=== PATIENT | male | born 1940 | race Caucasian/White ===

== ENCOUNTER 2019-10-06 10:34 | Emergency (ER) | payer MEDICARE, OTHER ==
--- NOTE | 2019-10-06 13:10 | EDM.PDOC ---
ED HPI GENERAL MEDICAL PROBLEM - General Chief Complaint: General Stated Complaint: right sided flank pain wrapping around Time Seen by Provider: 10/06/19 13:04 Source of Information: Reports: Patient, RN, RN Notes Reviewed History Limitations: Reports: No Limitations - History of Present Illness INITIAL COMMENTS - FREE TEXT/NARRATIVE: 79 year-old male with left flank pain variable over about 3 weeks. Smelly urine with mild dysuria on occasion. Now more discomfort and called EMS. Narcotic en route and pain-free now. Malaise. No fever nor chills. Mild abdominal distension and chronic constipation. S/P cynthia. Known CRF. No complaints c/w acute anemia. 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: Other (see below) Other Treatments DEVELOPER ARCHITECT: fentayl right flank wrapping around towards front Pain Score (Numeric/FACES): 7 - Related Data Allergies Allergy/AdvReac Type Severity Reaction Status Date / Time No Known Allergies Allergy Verified 10/06/19 10:45 Home Meds: Home Meds Carbidopa/Levodopa [Carbidopa-Levodopa 25-100] 25 - 100 mg PO BID 08/10/13 [ History] Metoprolol Succinate 25 mg PO BID 08/10/13 [History] [place]-3 Fatty Acids [[place]-3] 2,000 mg PO DAILY 08/10/13 [History] Omeprazole 40 mg PO DAILY 08/10/13 [History] Vitamin B Complex [B Complex] 1 each PO DAILY 08/10/13 [History] lisinopriL [Prinivil] 40 mg PO DAILY 08/10/13 [History] metFORMIN [Glucophage] 500 mg PO BID 08/10/13 [History] Cholecalciferol (Vitamin D3) [Vitamin D3] 1,000 unit PO DAILY 01/22/16 [History] Cinnamon Bark [Cinnamon] 500 mg PO DAILY 01/22/16 [History] Cyanocobalamin (Vitamin B-12) [Vitamin B12] 2,500 mcg PO DAILY 01/22/16 [History ] Flaxseed Oil 1,000 mg PO DAILY 01/22/16 [History] Ibuprofen [Advil] 200 mg PO Q6HR PRN 01/22/16 [History] Magnesium 250 mg PO DAILY 01/22/16 [History] Saw [place] 1,200 mg PO TID 01/22/16 [History] Selenium 200 mcg PO DAILY 01/22/16 [History] Zinc 50 mg PO DAILY 01/22/16 [History] atorvaSTATin [Lipitor] 10 mg PO BEDTIME 01/22/16 [History] Ciprofloxacin HCl [Cipro] 500 mg PO BID 6 Days #10 tablet 10/06/19 [Rx] Past Medical History HEENT History: Reports: Hard of Hearing Cardiovascular History: Reports: High Cholesterol, Hypertension Other Cardiovascular History: Carotid Artery stenosis, acute coronary occlusion without myocardial infarction, coronary atherosclerosis of [place] artery, SVT premature beats, Respiratory History: Reports: COPD Gastrointestinal History: Reports: Diverticulosis, Pancreatitis, Other (See Below) Other Gastrointestinal History: Pepcid Ulcer, umbilical hernia, esophageal reflux Genitourinary History: Reports: BPH Other Genitourinary History: impotence, atrophy of testis, stage 3 CKD Musculoskeletal History: Reports: Arthritis Neurological History: Reports: Parkinson's Psychiatric History: Reports: Anxiety, Depression Endocrine/Metabolic History: Reports: Diabetes, Type II, Obesity/BMI 30+, Osteopenia Hematologic History: Reports: Anemia - Past Surgical History Cardiovascular Surgical History: Reports: Carotid Endarterectomy Musculoskeletal Surgical History: Reports: Amputation, Arthroscopic Knee, Other (See Below) Social & Family History - Family History Cardiac: Reports: [place] Respiratory: Reports: COPD GI: Reports: Cholelithiasis, PUD, Other (See Below) Other GI Family History: GI Disease : Reports: Cystic Kidney Disease, Nephritis Musculoskeletal: Reports: Gout Neurological: Reports: Other (See Below) Other Neurological Family History: Organic brain syndrome Psychiatric: Reports: Depression, Suicide Attempt Endocrine/Metabolic: Reports: Diabetes, type II Oncologic: Reports: Breast, Lung - Living Situation & Occupation Living situation: Reports: , Alone Occupation: Retired ED ROS GENERAL - Review of Systems Review Of Systems: See Below Constitutional: Reports: Malaise. Denies: Fever, Chills, Weakness, Diaphoresis , Decreased Appetite HEENT: Reports: No Symptoms Respiratory: Denies: Shortness of Breath, Pleuritic Chest Pain, Cough, Sputum, Hemoptysis Cardiovascular: Denies: Chest Pain, Edema, Lightheadedness GI/Abdominal: Reports: Constipation, Distension, Flatus. Denies: Black Stool, Bloody Stool, Diarrhea, Nausea, Vomiting : Reports: Dysuria, Flank Pain, Frequency, Incontinence, Pain, Urgency. Denies: Hematuria, Urinary Retention Musculoskeletal: Reports: No Symptoms Skin: Denies: Rash Hematologic/Lymphatic: Denies: Anemia ED EXAM, GENERAL - Physical Exam Exam: See Below Exam Limited By: No Limitations General Appearance: Alert, No Apparent Distress Throat/Mouth: Normal Inspection, Normal Lips, Other (Hydrated.) Head: Atraumatic, Normocephalic Neck: Normal Inspection, Supple, Non-Tender. No: Lymphadenopathy (L), Lymphadenopathy (R) Respiratory/Chest: No Respiratory Distress, Lungs Clear, Normal Breath Sounds, No Accessory Muscle Use, Chest Non-Tender Cardiovascular: Normal Peripheral Pulses, Regular Rate, Rhythm, No Edema, No Gallop, No JVD, No Murmur GI/Abdominal: Normal Bowel Sounds, Soft, Non-Tender, No Organomegaly (Male) Exam: No Hernia, Normal Inspection Back Exam: CVA Tenderness (R). No: CVA Tenderness (L) Extremities: Normal Inspection, Normal Capillary Refill. No: Pedal Edema Neurological: Alert, Oriented, No Motor/Sensory Deficits Psychiatric: Normal Affect Skin Exam: Warm, Dry, Intact, Normal Color, No Rash Course - Vital Signs Last Recorded V/S: Last Vital Signs Temp 97.8 F 10/06/19 10:35 Pulse 97 10/06/19 10:35 Resp 16 10/06/19 10:35 BP 183/96 H 10/06/19 10:35 Pulse Ox 96 10/06/19 10:35 - Orders/Labs/Meds Orders: Active Orders 24 hr Category Date Time Status Abdomen 2V AP Flat Upright [CR] Stat Exams 10/06/19 11:05 Taken CULTURE URINE [RM] Stat Lab 10/06/19 12:48 Received Labs: Laboratory Tests 10/06/19 10/06/19 10/06/19 Range/Units 11:22 11:22 12:48 WBC 5.8 (4.0-10.2) K/uL RBC 2.44 L (4.33-5.41) M/uL Hgb 7.7 L D (13.1-16.8) g/dL Hct 24.2 L* (39.0-49.0) % MCV 99.2 H D (84.0-98.0) fL MCH 31.6 (28.2-33.3) pg MCHC 31.8 (31.7-36.0) g/dL RDW 14.9 H (11.2-14.1) % Plt Count 257 D (150-350) K/uL Neut % (Auto) 65.5 (45.0-80.0) % Lymph % (Auto) 17.4 (10.0-50.0) % [place] % (Auto) 14.9 H (2.0-14.0) % Eos % (Auto) 1.7 (0.0-5.0) % Baso % (Auto) 0.5 (0.0-2.0) % Neut # (Auto) 3.77 (1.40-7.00) K/uL Lymph # (Auto) 1.00 (0.50-3.50) K/uL [place] # (Auto) 0.86 (0.00-1.00) K/uL Eos # (Auto) 0.10 (0.00-0.50) K/uL Baso # (Auto) 0.03 (0.00-0.20) K/uL Sodium 133 L (136-145) mmol/L Potassium 4.9 (3.5-5.1) mmol/L Chloride 100 (98-107) mmol/L Carbon Dioxide 26.3 (21.0-32.0) mmol/L BUN 53 H (7-18) mg/dL Creatinine 2.13 H (0.51-1.17) mg/dL Est Cr Clr Drug Dosing 28.97 mL/min Estimated GFR (MDRD) 30 mL/min Glucose 229 H (74-106) mg/dL Calcium 9.7 (8.5-10.1) mg/dL Total Bilirubin 0.3 (0.2-1.0) mg/dL AST 13 L (15-37) U/L ALT 12 (12-78) U/L Alkaline Phosphatase 71 (46-116) IU/L C-Reactive Protein 1.2 H (<=0.9) mg/dL Total Protein 12.4 H (6.4-8.2) g/dL Albumin 2.2 L (3.4-5.0) g/dL Specimen Type . Urine Color Yellow Urine Appearance Clear Urine pH 6.0 (5.0-9.0) Ur Specific [place] 1.025 (1.005-1.030) Urine Protein >=300 H (NEGATIVE) mg/dL Urine Glucose (UA) Negative (NEGATIVE) mg/dL Urine Ketones Negative (NEGATIVE) mg/dL Urine Occult Blood Trace-intact H (NEGATIVE) Urine Nitrite Negative (NEGATIVE) Urine Bilirubin Negative (NEGATIVE) Urine Urobilinogen 0.2 (0.2-1.0) E.U./dL Ur Leukocyte Esterase Small H (NEGATIVE) Urine RBC 0-5 /HPF Urine WBC 30-40 H /HPF Ur Epithelial Cells Moderate H /LPF Urine Bacteria Moderate H (NONE TO FEW) /HPF Urinalysis Comment Departure - Departure Time of Disposition: 13:38 Disposition: Home, Self-Care 01 Condition: Good Clinical Impression: UTI (urinary tract infection) - Discharge Information *PRESCRIPTION DRUG MONITORING PROGRAM REVIEWED*: Not Applicable *COPY OF PRESCRIPTION DRUG MONITORING REPORT IN PATIENT [place]: Not Applicable Prescriptions: Ciprofloxacin HCl [Cipro] 500 mg PO BID 6 Days #10 tablet Referrals: Sourav Davis PA [Primary Care Provider] - Forms: ED Department Discharge Sepsis Event Note (ED) - Evaluation Sepsis Screening Result: No Definite Risk - Focused Exam Vital Signs: Vital Signs Temp Pulse Resp BP Pulse Ox 10/06/19 10:35 97.8 F 97 16 183/96 H 96 - Problem List & Annotations (1) UTI (urinary tract infection) SNOMED Code(s): 61488220 Code(s): N39.0 - URINARY TRACT INFECTION, SITE NOT SPECIFIED Status: Acute - My Orders Last 24 Hours: My Active Orders 10/06/19 11:05 Abdomen 2V AP Flat Upright [CR] Stat 10/06/19 12:48 CULTURE URINE [RM] Stat - Assessment/Plan Last 24 Hours: My Active Orders 10/06/19 11:05 Abdomen 2V AP Flat Upright [CR] Stat 10/06/19 12:48 CULTURE URINE [RM] Stat
[2019-10-06 15:25] VITALS: BP 164/77; PULSE 86
== END 2019-10-06 14:30 | disposition home or self-care (01) ==
LOC: LL.ED 10:34
DX: N39.0 Urinary tract infection, site not specified (principal); E78.00 Pure hypercholesterolemia, unspecified; J44.9 Chronic obstructive pulmonary disease, unspecified; E66.9 Obesity, unspecified; F41.9 Anxiety disorder, unspecified; F32.9 Major depressive disorder, single episode, unspecified; I12.9 Hypertensive chronic kidney disease with stage 1 through stage 4 chronic kidney disease, or unspecified chronic kidney disease; E11.22 Type 2 diabetes mellitus with diabetic chronic kidney disease; N18.3 Chronic kidney disease, stage 3 (moderate); Z79.84 Long term (current) use of oral hypoglycemic drugs; Z79.899 Other long term (current) drug therapy
CPT/HCPCS: 36415; 74019; 80053; 81001; 85025; 86140; 87086; 99284

== ENCOUNTER 2020-02-01 17:03 | Emergency (ER) | payer MEDICARE, OTHER ==
[2020-02-01] MEDS ORDERED: Sodium Chloride 0.9% 10 ML Syringe FLUSH PRN (17:22)
--- NOTE | 2020-02-01 17:28 | EDM.PDOC ---
ED HPI GENERAL MEDICAL PROBLEM - General Chief Complaint: General Stated Complaint: FALL, DIZZINESS Time Seen by Provider: 02/01/20 17:21 Source of Information: Reports: Patient History Limitations: Reports: Other (hard of hearing/vague with history) - History of Present Illness INITIAL COMMENTS - FREE TEXT/NARRATIVE: Patient comes to ER via EMS after having dizzy spell at [employer]. Has had dizzy spells before. Gets fuzzy eye vision when this happens. Says drinking a diet coke and burping usually fixes things. Cannot say how often he gets the spells or if there are specific triggers. They usually do not last long. Does not follow up with his own MD often and no workup has been performed. Has right sided neck pain that travels past clavicle when these things happen. No sweating/nausea/emesis or other accompanying symptoms. No SOB. 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 - Related Data Allergies Allergy/AdvReac Type Severity Reaction Status Date / Time No Known Allergies Allergy Verified 10/06/19 10:45 Home Meds: Home Meds [place]-3 Fatty Acids [[place]-3] 2,000 mg PO DAILY 08/10/13 [History] Vitamin B Complex [B Complex] 1 each PO DAILY 08/10/13 [History] Cholecalciferol (Vitamin D3) [Vitamin D3] 1,000 unit PO DAILY 01/22/16 [History] Cinnamon Bark [Cinnamon] 500 mg PO DAILY 01/22/16 [History] Cyanocobalamin (Vitamin B-12) [Vitamin B12] 2,500 mcg PO DAILY 01/22/16 [History] Flaxseed Oil 1,000 mg PO DAILY 01/22/16 [History] Ibuprofen [Advil] 200 mg PO Q6HR PRN 01/22/16 [History] Magnesium 250 mg PO DAILY 01/22/16 [History] Saw [place] 1,200 mg PO TID 01/22/16 [History] Selenium 200 mcg PO DAILY 01/22/16 [History] Zinc 50 mg PO DAILY 01/22/16 [History] Aspirin/Acetaminophen/Caffeine [Excedrin Extra Strength Caplet] 1 each PO QID PRN 10/06/19 [History] Ciprofloxacin HCl [Cipro] 500 mg PO BID 6 Days #10 tablet 10/06/19 [Rx] guaiFENesin/Phenylephrine HCl [Mucus Relief PE Tablet] 1 each PO Q6HR PRN 10/06/19 [History] Past Medical History HEENT History: Reports: Hard of Hearing Cardiovascular History: Reports: High Cholesterol, Hypertension Other Cardiovascular History: Carotid Artery stenosis, acute coronary occlusion without myocardial infarction, coronary atherosclerosis of [place] artery, SVT premature beats, Respiratory History: Reports: COPD Gastrointestinal History: Reports: Diverticulosis, Pancreatitis, Other (See Below) Other Gastrointestinal History: Pepcid Ulcer, umbilical hernia, esophageal reflux Genitourinary History: Reports: BPH Other Genitourinary History: impotence, atrophy of testis, stage 3 CKD Musculoskeletal History: Reports: Arthritis Neurological History: Reports: Parkinson's Psychiatric History: Reports: Anxiety, Depression Endocrine/Metabolic History: Reports: Diabetes, Type II, Obesity/BMI 30+, Osteopenia Hematologic History: Reports: Anemia - Past Surgical History Cardiovascular Surgical History: Reports: Carotid Endarterectomy Musculoskeletal Surgical History: Reports: Amputation, Arthroscopic Knee, Other (See Below) Social & Family History - Family History Cardiac: Reports: [place] Respiratory: Reports: COPD GI: Reports: Cholelithiasis, PUD, Other (See Below) Other GI Family History: GI Disease : Reports: Cystic Kidney Disease, Nephritis Musculoskeletal: Reports: Gout Neurological: Reports: Other (See Below) Other Neurological Family History: Organic brain syndrome Psychiatric: Reports: Depression, Suicide Attempt Endocrine/Metabolic: Reports: Diabetes, type II Oncologic: Reports: Breast, Lung - Caffeine Use Caffeine Use: Reports: Coffee, Soda - Living Situation & Occupation Living situation: Reports: , Alone Occupation: Retired ED ROS GENERAL - Review of Systems Review Of Systems: See Below Constitutional: Reports: No Symptoms HEENT: Reports: No Symptoms Respiratory: Reports: No Symptoms. Denies: Shortness of Breath, Pleuritic Chest Pain Cardiovascular: Reports: Lightheadedness, Other (right upper chest/lateral neck discomfort with dizzy spell). Denies: Dyspnea on Exertion, Edema, Orthopnea, Palpitations, Syncope GI/Abdominal: Reports: No Symptoms. Denies: Abdominal Pain, Hematemesis, Hematochezia, Nausea, Vomiting : Reports: Other (can have difficulty urinating at times/long standing issue) Musculoskeletal: Reports: Other (no acute changes from baseline) Skin: Reports: No Symptoms Neurological: Reports: Dizziness, Difficulty Walking (when dizzy). Denies: Confusion, Headache, Numbness, Seizure, Syncope, Tingling, Trouble Speaking, Change in Speech Psychiatric: Reports: No Symptoms Hematologic/Lymphatic: Reports: No Symptoms ED EXAM, GENERAL - Physical Exam Exam: See Below Exam Limited By: Other (very hard of hearing) General Appearance: Alert, WD/WN, No Apparent Distress Eye Exam: Bilateral Eye: EOMI, PERRL Ears: Hearing Loss. No: Normal External Exam, Normal Canal Nose: No: Nasal Deformity, Nasal Swelling, Nasal Drainage Throat/Mouth: Normal Lips, Normal Voice, No Airway Compromise Head: Atraumatic, Normocephalic Neck: Supple, Non-Tender, Full Range of Motion Respiratory/Chest: No Respiratory Distress, Lungs Clear, Normal Breath Sounds, No Accessory Muscle Use, Chest Non-Tender Cardiovascular: Normal Peripheral Pulses, Regular Rate, Rhythm, No Murmur GI/Abdominal: Normal Bowel Sounds, Soft, Non-Tender, No Distention (Male) Exam: Deferred Back Exam: No: CVA Tenderness (L), CVA Tenderness (R), Muscle Spasm Extremities: Non-Tender Neurological: Alert, Oriented, Other (equal tone/strength bilaterally) Psychiatric: Normal Affect, Normal Mood Skin Exam: Warm, Dry, Intact, Pallor, Other (excoriations lower legs. ) EKG INTERPRETATION EKG Date: 02/01/20 Time: 17:32 Rhythm: Other (appears to have A-flutter waves V2) Rate (Beats/Min): 104 Ralph: Normal P-Wave: Absent QRS: Other (bifascicular block) ST-T: Other (difficult to assess given bifascicular block/no obvious acute ischemic changes) QT: Normal Comparison: Change From Previous EKG (NSR noted 2013) Course - Vital Signs Last Recorded V/S: Last Vital Signs Temp 36.9 C 02/01/20 20:20 Pulse 103 H 02/01/20 20:20 Resp 27 H 02/01/20 20:20 BP 139/77 02/01/20 20:20 Pulse Ox 100 02/01/20 17:09 - Orders/Labs/Meds Orders: Active Orders 24 hr Category Date Time Status Communication Order [RC] ROUTINE Care 02/01/20 17:56 Active EKG Documentation Completion [RC] ASDIRECTED Care 02/01/20 17:24 Active Chest 1V Frontal [CR] Stat Exams 02/01/20 17:51 Taken Head wo Cont [CT] Stat Exams 02/01/20 17:21 Taken PACKED CELLS [RED BLOOD CELLS LP] [BBK] Stat Lab 02/01/20 17:25 Results TYPE AND SCREEN [BBK] Stat Lab 02/01/20 17:25 Results UA W/MICROSCOPIC [URIN] Stat Lab 02/01/20 17:22 Ordered Sodium Chloride 0.9% [Normal Saline] 250 ml Med 02/01/20 20:00 Active IV ASDIRECTED Sodium Chloride 0.9% [Saline Flush] Med 02/01/20 17:22 Active 10 ml FLUSH ASDIRECTED PRN Saline Lock Insert [OM.PC] Routine Oth 02/01/20 17:22 Ordered Transfuse Red Blood Cells [COMM] Routine Oth 02/01/20 17:52 Ordered Medication Orders Sodium Chloride (Normal Saline) 250 mls @ 250 mls/hr IV ASDIRECTED TOSIN Last Admin: 02/01/20 20:13 Dose: 250 mls/hr Documented by: JASE Sodium Chloride (Saline Flush) 10 ml FLUSH ASDIRECTED PRN PRN Reason: Keep Vein Open Labs: Laboratory Tests 02/01/20 02/01/20 02/01/20 Range/Units 16:55 17:25 17:25 WBC (4.0-10.2) K/uL RBC (4.33-5.41) M/uL Hgb (13.1-16.8) g/dL Hct (39.0-49.0) % MCV (84.0-98.0) fL MCH (28.2-33.3) pg MCHC (31.7-36.0) g/dL RDW (11.2-14.1) % Plt Count (150-350) K/uL Neut % (Auto) (45.0-80.0) % Lymph % (Auto) (10.0-50.0) % [place] % (Auto) (2.0-14.0) % Eos % (Auto) (0.0-5.0) % Baso % (Auto) (0.0-2.0) % Neut # (Auto) (1.40-7.00) K/uL Lymph # (Auto) (0.50-3.50) K/uL [place] # (Auto) (0.00-1.00) K/uL Eos # (Auto) (0.00-0.50) K/uL Baso # (Auto) (0.00-0.20) K/uL D-Dimer, Quantitative 2010 H (0-400) ng/mL Sodium 126 L (136-145) mmol/L Potassium 3.6 (3.5-5.1) mmol/L Chloride 94 L (98-107) mmol/L Carbon Dioxide 23.5 (21.0-32.0) mmol/L BUN 71 H (7-18) mg/dL Creatinine 7.13 H* D (0.51-1.17) mg/dL Est Cr Clr Drug Dosing 7.86 mL/min Estimated GFR (MDRD) 7 mL/min Glucose 122 H (74-106) mg/dL Lactic Acid 0.9 (0.4-2.0) mmol/L Calcium 10.5 H (8.5-10.1) mg/dL Magnesium 1.9 (1.8-2.4) mg/dL Total Bilirubin 0.2 (0.2-1.0) mg/dL AST 16 (15-37) U/L ALT 12 (12-78) U/L Alkaline Phosphatase 84 (46-116) IU/L Troponin I 0.026 (0.000-0.056) ng/mL NT-Pro-B Natriuret Pep 2819 H (0-125) pg/mL Total Protein 12.9 H (6.4-8.2) g/dL Albumin 2.0 L (3.4-5.0) g/dL Blood Type Gel Antibody Screen Crossmatch 02/01/20 02/01/20 Range/Units 17:25 17:35 WBC 7.2 (4.0-10.2) K/uL RBC 1.70 L (4.33-5.41) M/uL Hgb 5.4 L* D (13.1-16.8) g/dL Hct 17.0 L* (39.0-49.0) % MCV 100.0 H (84.0-98.0) fL MCH 31.8 (28.2-33.3) pg MCHC 31.8 (31.7-36.0) g/dL RDW 14.3 H (11.2-14.1) % Plt Count 273 (150-350) K/uL Neut % (Auto) 65.8 (45.0-80.0) % Lymph % (Auto) 15.3 (10.0-50.0) % [place] % (Auto) 17.8 H (2.0-14.0) % Eos % (Auto) 1.0 (0.0-5.0) % Baso % (Auto) 0.1 (0.0-2.0) % Neut # (Auto) 4.72 (1.40-7.00) K/uL Lymph # (Auto) 1.10 (0.50-3.50) K/uL [place] # (Auto) 1.28 H (0.00-1.00) K/uL Eos # (Auto) 0.07 (0.00-0.50) K/uL Baso # (Auto) 0.01 (0.00-0.20) K/uL D-Dimer, Quantitative (0-400) ng/mL Sodium (136-145) mmol/L Potassium (3.5-5.1) mmol/L Chloride (98-107) mmol/L Carbon Dioxide (21.0-32.0) mmol/L BUN (7-18) mg/dL Creatinine (0.51-1.17) mg/dL Est Cr Clr Drug Dosing mL/min Estimated GFR (MDRD) mL/min Glucose (74-106) mg/dL Lactic Acid (0.4-2.0) mmol/L Calcium (8.5-10.1) mg/dL Magnesium (1.8-2.4) mg/dL Total Bilirubin (0.2-1.0) mg/dL AST (15-37) U/L ALT (12-78) U/L Alkaline Phosphatase (46-116) IU/L Troponin I (0.000-0.056) ng/mL NT-Pro-B Natriuret Pep (0-125) pg/mL Total Protein (6.4-8.2) g/dL Albumin (3.4-5.0) g/dL Blood Type A NEGATIVE Gel Antibody Screen Negative Crossmatch See Detail Meds: Medications Generic Name Dose Route Start Last Admin Trade Name Freq PRN Reason Stop Dose Admin Sodium Chloride 250 mls @ 250 mls/hr 02/01/20 20:00 02/01/20 20:13 Normal Saline IV 250 mls/hr ASDIRECTED TOSIN Administration Sodium Chloride 10 ml 02/01/20 17:22 Saline Flush FLUSH ASDIRECTED PRN Keep Vein Open - Radiology Interpretation Free Text/Narrative:: Chest film suggestive of some CHF/no focal infiltrates. - Re-Assessments/Exams Free Text/Narrative Re-Assessment/Exam: 02/01/20 19:02 Patient noted to have HGB of 5.4. This is down from 7.7 in September. Creatinine jumped from just over 2 to 7. Given these changes arrangements for transfer to [facility] made with accepting MD Malcolm from ER. One unit of packed RBCs started prior to transfer. No history of GI bleeding per patient. No stool changes reported. Vital signs stable. Patient alert/happy during stay. 02/01/20 19:13 O negative used for transfusion. Patient is A negative. Departure - Departure Time of Disposition: 20:45 Disposition: DC/Tfer to [facility] 02 Condition: Serious Clinical Impression: Acute renal failure Qualifiers: Acute renal failure type: unspecified Qualified Code(s): N17.9 - Acute kidney failure, unspecified Anemia Qualifiers: Anemia type: unspecified type Qualified Code(s): D64.9 - Anemia, unspecified - Discharge Information *PRESCRIPTION DRUG MONITORING PROGRAM REVIEWED*: Not Applicable *COPY OF PRESCRIPTION DRUG MONITORING REPORT IN PATIENT [place]: Not Applicable Referrals: PCP,None [Primary Care Provider] - Forms: ED Department Discharge Sepsis Event Note (ED) - Evaluation Sepsis Screening Result: No Definite Risk - Focused Exam Vital Signs: Vital Signs Temp Temp Pulse Resp BP Pulse Ox 02/01/20 20:20 36.9 C 103 H 27 H 139/77 02/01/20 20:18 36.9 C 103 H 14 154/82 H 02/01/20 20:06 141/83 H 02/01/20 20:01 36.9 C 108 H 19 196/107 H 02/01/20 17:09 37.4 C 102 H 14 128/87 100 - My Orders Last 24 Hours: My Active Orders 02/01/20 17:21 Head wo Cont [CT] Stat 02/01/20 17:22 UA W/MICROSCOPIC [URIN] Stat Sodium Chloride 0.9% [Saline Flush] 10 ml FLUSH ASDIRECTED PRN Saline Lock Insert [OM.PC] Routine 02/01/20 17:24 EKG Documentation Completion [RC] ASDIRECTED 02/01/20 17:25 PACKED CELLS [RED BLOOD CELLS LP] [BBK] Stat TYPE AND SCREEN [BBK] Stat 02/01/20 17:51 Chest 1V Frontal [CR] Stat 02/01/20 17:52 Transfuse Red Blood Cells [COMM] Routine 02/01/20 17:56 Communication Order [RC] ROUTINE 02/01/20 20:00 Sodium Chloride 0.9% [Normal Saline] 250 ml IV ASDIRECTED - Assessment/Plan Last 24 Hours: My Active Orders 02/01/20 17:21 Head wo Cont [CT] Stat 02/01/20 17:22 UA W/MICROSCOPIC [URIN] Stat Sodium Chloride 0.9% [Saline Flush] 10 ml FLUSH ASDIRECTED PRN Saline Lock Insert [OM.PC] Routine 02/01/20 17:24 EKG Documentation Completion [RC] ASDIRECTED 02/01/20 17:25 PACKED CELLS [RED BLOOD CELLS LP] [BBK] Stat TYPE AND SCREEN [BBK] Stat 02/01/20 17:51 Chest 1V Frontal [CR] Stat 02/01/20 17:52 Transfuse Red Blood Cells [COMM] Routine 02/01/20 17:56 Communication Order [RC] ROUTINE 02/01/20 20:00 Sodium Chloride 0.9% [Normal Saline] 250 ml IV ASDIRECTED
[2020-02-01] MEDS ORDERED: Sodium Chloride 0.9% 250 ML IV SCH (20:00)
[2020-02-01 21:33] VITALS: BP 164/82; PULSE 101
== END 2020-02-01 21:00 ==
LOC: LL.ED 17:03
DX: N17.9 Acute kidney failure, unspecified (principal); I12.9 Hypertensive chronic kidney disease with stage 1 through stage 4 chronic kidney disease, or unspecified chronic kidney disease; E11.22 Type 2 diabetes mellitus with diabetic chronic kidney disease; D63.1 Anemia in chronic kidney disease; N18.30 Chronic kidney disease, stage 3 unspecified; S80.812A Abrasion, left lower leg, initial encounter; S80.811A Abrasion, right lower leg, initial encounter; J44.9 Chronic obstructive pulmonary disease, unspecified; E11.9 Type 2 diabetes mellitus without complications; E66.9 Obesity, unspecified; G20 Parkinson's disease; Z68.38 Body mass index [BMI] 38.0-38.9, adult; Z79.899 Other long term (current) drug therapy; X58.XXXA Exposure to other specified factors, initial encounter
CPT/HCPCS: 36415; 36430; 70450; 71045; 80053; 83605; 83735; 83880; 84484; 85025; 85379; 86850; 86900; 86901; 86920; 86922; 93005; 93010; 96360; 99284; 99285; J7050; P9016

== ENCOUNTER 2021-02-12 17:02 | Emergency (ER) | payer MEDICARE, OTHER ==
--- NOTE | 2021-02-12 17:45 | EDM.PDOC ---
ED HPI GENERAL MEDICAL PROBLEM - General Chief Complaint: Lower Extremity Injury/Pain Stated Complaint: left knee pain, fall Time Seen by Provider: 02/12/21 17:30 Source of Information: Reports: Patient, EMS History Limitations: Reports: No Limitations - History of Present Illness INITIAL COMMENTS - FREE TEXT/NARRATIVE: Left knee pain s/p fall. Says he was at work and didn't realize there was a single step down in front of him when he went through a doorway. Denies any other injury. Went down and landed with weight on the left knee. Previous surgery/knee replacement on left. Pain with any movement, better at rest. Denies any hip/foot pain on affected side. Denies injury to right lower limb/both upper limbs. Denies new back pain/chest pain/pelvic pain/abdominal pa in/neck pain. Denies hitting head or LOC. left knee Pain Score (Numeric/FACES): 3 - Related Data Allergies Allergy/AdvReac Type Severity Reaction Status Date / Time No Known Allergies Allergy Verified 02/12/21 17:03 Home Meds: Home Meds Vitamin B Complex [B Complex] 1 each PO DAILY 08/10/13 [History] Cholecalciferol (Vitamin D3) [Vitamin D3] 1,000 unit PO DAILY 01/22/16 [History] Magnesium 400 mg PO DAILY 01/22/16 [History] Zinc 50 mg PO DAILY 01/22/16 [History] Acyclovir 1 tab PO BID 02/12/21 [History] Carbidopa/Levodopa [Carbidopa-Levo ER 25-100] 1 tab PO BID 02/12/21 [History] Folic Acid 1 tab PO DAILY 02/12/21 [History] Furosemide 0.5 tab PO DAILY 02/12/21 [History] HCTZ/Triamterene [Dyazide 25-37.5 MG] 1 cap PO DAILY 02/12/21 [History] Montelukast [Singulair] 10 mg PO ASDIRECTED 02/12/21 [History] Omeprazole 1 cap PO DAILY 02/12/21 [History] atorvaSTATin [Lipitor] 10 mg pe PO BEDTIME 02/12/21 [History] hydrOXYzine pamoate [Hydroxyzine Pamoate] 1 cap PO QID PRN 02/12/21 [History] traZODone 1 tab PO BEDTIME 02/12/21 [History] Acetaminophen 1,000 mg PO TID 02/19/21 [History] Apixaban [Eliquis] 2.5 mg PO BID 02/19/21 [History] Bismuth Subsalicylate 262 mg PO Q6HR PRN 02/19/21 [History] Calcium Carbonate 1,000 mg PO Q4H PRN 02/19/21 [History] Cyanocobalamin (Vitamin B12) [Vitamin B12] 1 tab PO BID 02/19/21 [History] HYDROmorphone HCl/0.9% NaCl/PF [Hydromorphone 0.5 mg/0.5 ml-Ns] 0.5 mg IV Q2H PRN 02/19/21 [History] Ketoconazole 120 ml TP Q3D 02/19/21 [History] Melatonin 3 mg PO BEDTIME PRN 02/19/21 [History] Metoprolol Tartrate [Lopressor] 50 mg PO BID 02/19/21 [History] Naloxone [Narcan] 0.4 mg IJ ASDIRECTED PRN 02/19/21 [History] Sennosides/Docusate Sodium [Senna-Docusate Sodium Tablet] 2 each PO BID 02/19/21 [History] Tamsulosin HCl [Flomax] 0.4 mg PO DAILY 02/19/21 [History] oxyCODONE HCl [Oxycodone HCL] 10 mg PO Q6HR PRN 02/19/21 [History] oxyCODONE HCl [Oxycodone HCl] 10 mg PO Q6H PRN 02/19/21 [History] polyethylene glycoL 3350 [Miralax] 1 pkt PO DAILY PRN 02/19/21 [History] Past Medical History HEENT History: Reports: Hard of Hearing Cardiovascular History: Reports: High Cholesterol, Hypertension Other Cardiovascular History: Carotid Artery stenosis, acute coronary occlusion without myocardial infarction, coronary atherosclerosis of [place] artery, SVT premature beats, Respiratory History: Reports: COPD Gastrointestinal History: Reports: Diverticulosis, Pancreatitis, Other (See Below) Other Gastrointestinal History: Pepcid Ulcer, umbilical hernia, esophageal reflux Genitourinary History: Reports: BPH, Chronic Renal Insuffiency Other Genitourinary History: impotence, atrophy of testis, stage 3 CKD Musculoskeletal History: Reports: Arthritis Neurological History: Reports: Parkinson's Psychiatric History: Reports: Anxiety, Depression Endocrine/Metabolic History: Reports: Diabetes, Type II, Obesity/BMI 30+, Osteopenia Hematologic History: Reports: Anemia Oncologic (Cancer) History: Reports: Other (See Below) (Multiple Myeloma) - Past Surgical History Cardiovascular Surgical History: Reports: Carotid Endarterectomy Musculoskeletal Surgical History: Reports: Amputation, Arthroscopic Knee, Other (See Below) Social & Family History - Family History Cardiac: Reports: [place] Respiratory: Reports: COPD GI: Reports: Cholelithiasis, PUD, Other (See Below) Other GI Family History: GI Disease : Reports: Cystic Kidney Disease, Nephritis Musculoskeletal: Reports: Gout Neurological: Reports: Other (See Below) Other Neurological Family History: Organic brain syndrome Psychiatric: Reports: Depression, Suicide Attempt Endocrine/Metabolic: Reports: Diabetes, type II Oncologic: Reports: Breast, Lung - Caffeine Use Caffeine Use: Reports: Coffee, Soda - Living Situation & Occupation Living situation: Reports: , Alone Occupation: Retired Review of Systems - Review of Systems Review Of Systems: Comprehensive ROS is negative, except as noted in HPI. ED EXAM, GENERAL - Physical Exam Exam: See Below Exam Limited By: Other (left knee pain) General Appearance: Alert, Obese Eye Exam: Bilateral Eye: EOMI, PERRL Ears: Normal External Exam, Hearing Loss Nose: No: Nasal Deformity, Nasal Swelling, Nasal Drainage Throat/Mouth: Normal Lips, Normal Voice, No Airway Compromise Head: Atraumatic, Normocephalic Neck: Normal Inspection, Supple, Non-Tender, Full Range of Motion Respiratory/Chest: No Respiratory Distress, Lungs Clear, Normal Breath Sounds, No Accessory Muscle Use, Chest Non-Tender Cardiovascular: Regular Rate, Rhythm, No Murmur GI/Abdominal: Soft, Non-Tender, Pelvis Stable (Male) Exam: Deferred Rectal (Males) Exam: Deferred Back Exam: No: Muscle Spasm, Paraspinal Tenderness, Vertebral Tenderness Extremities: Other (very tender left knee area diffusely. No deformity but swollen. No obvious tenderness proximally/distally to injury. Nontender with palpation RLL, upper limbs) Neurological: Alert, Oriented, Normal Cognition Psychiatric: Normal Affect, Normal Mood Skin Exam: Warm, Dry, Intact, Normal Color Course - Vital Signs Last Recorded V/S: Last Vital Signs Temp 36.1 C 02/12/21 20:45 Pulse 71 02/12/21 20:45 Resp 14 02/12/21 20:45 BP 148/63 H 02/12/21 20:45 Pulse Ox 100 02/12/21 20:45 - Orders/Labs/Meds Labs: Laboratory Tests 02/12/21 02/12/21 02/12/21 Range/Units 18:03 18:03 18:40 WBC 9.1 (4.0-10.2) K/uL RBC 3.32 L (4.33-5.41) M/uL Hgb 10.8 L D (13.1-16.8) g/dL Hct 32.1 L (39.0-49.0) % MCV 96.7 D (84.0-98.0) fL MCH 32.5 (28.2-33.3) pg MCHC 33.6 (31.7-36.0) g/dL RDW 14.2 H (11.2-14.1) % Plt Count 257 (150-350) K/uL Neut % (Auto) 73.0 (45.0-80.0) % Lymph % (Auto) 7.1 L (10.0-50.0) % [place] % (Auto) 14.6 H (2.0-14.0) % Eos % (Auto) 4.7 (0.0-5.0) % Baso % (Auto) 0.6 (0.0-2.0) % Neut # (Auto) 6.62 (1.40-7.00) K/uL Lymph # (Auto) 0.64 (0.50-3.50) K/uL [place] # (Auto) 1.32 H (0.00-1.00) K/uL Eos # (Auto) 0.43 (0.00-0.50) K/uL Baso # (Auto) 0.05 (0.00-0.20) K/uL Sodium 139 D (136-145) mmol/L Potassium 5.8 H* D 5.7 H* (3.5-5.1) mmol/L Chloride 105 (98-107) mmol/L Carbon Dioxide 23.5 (21.0-32.0) mmol/L Anion Gap 16.3 H (7-15) meq/L BUN 77 H (7-18) mg/dL Creatinine 3.13 H* D (0.51-1.17) mg/dL Est Cr Clr Drug Dosing 19.38 mL/min Estimated GFR (MDRD) 19 mL/min Glucose 190 H (70-99) mg/dL Calcium 8.8 D (8.5-10.1) mg/dL Magnesium 1.9 (1.8-2.4) mg/dL Total Bilirubin 0.2 (0.2-1.0) mg/dL AST 10 L (15-37) U/L ALT 16 (12-78) U/L Alkaline Phosphatase 122 H (46-116) IU/L Total Protein 6.2 L (6.4-8.2) g/dL Albumin 3.4 (3.4-5.0) g/dL Meds: Medications Discontinued Medications Generic Name Dose Route Start Last Admin Trade Name Freq PRN Reason Stop Dose Admin Sodium Chloride 1,000 mls @ 125 mls/hr 02/12/21 19:01 02/12/21 19:34 Normal Saline IV 02/13/21 03:00 125 mls/hr .BOLUS ONE Administration Morphine Sulfate 2 mg 02/12/21 19:34 02/12/21 19:47 Morphine 2 Mg/Ml Syringe IVPUSH 02/12/21 19:35 2 mg ONETIME ONE Administration Morphine Sulfate 2 mg 02/12/21 20:28 02/12/21 20:44 Morphine 2 Mg/Ml Syringe IVPUSH 02/12/21 20:29 2 mg ONETIME ONE Administration Ondansetron HCl 4 mg 02/12/21 19:34 02/12/21 19:46 Ondansetron 4 Mg/2 Ml Sdv IVPUSH 02/12/21 19:35 4 mg ONETIME ONE Administration - Re-Assessments/Exams Free Text/Narrative Re-Assessment/Exam: 02/12/21 20:03 xray of knee and basic labs ordered. xray confirmed julius-prosthetic fracture of distal femur. Labs notable for elevated K at 5.8. Recheck level of 5.7 Hx of chronic renal disease and higher potassium levels. Also hx of recently diagnosed multiple myeloma. Hgb 10.8 Glucose 190 IV fluids initiated. 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 Call then placed [place] and patient reviewed with Dr. Guzman from Ortho. He was able to accept patient and anticipates they will be able to take him to the OR tomorrow. Patient then reviewed with /Hospitalist and he accepted the patient for transfer to the medical floor. They were advised to get patient's r ecords from [facility] for up to date problem list. MS for pain. Bed confirmation received. Waiting at this time for EMS to be available to transfer patient. Departure - Departure Time of Disposition: 20:09 Disposition: DC/Tfer to Acute Hospital 02 Condition: Good Clinical Impression: Periprosthetic fracture around internal prosthetic knee joint, Hyperkalemia Chronic renal disease Qualifiers: Chronic kidney disease stage: stage 4 (severe) Qualified Code(s): N18.4 - Chronic kidney disease, stage 4 (severe) - Discharge Information *PRESCRIPTION DRUG MONITORING PROGRAM REVIEWED*: Not Applicable *COPY OF PRESCRIPTION DRUG MONITORING REPORT IN PATIENT [place]: Not Applicable Referrals: Sourav Davis PA [Primary Care Provider] - Forms: ED Department Discharge Sepsis Event Note (ED) - Evaluation Sepsis Screening Result: No Definite Risk
[2021-02-12 18:32] LABS: ANION GAP 16.3 meq/L (7-15)
[2021-02-12] MEDS ORDERED: Sodium Chloride 0.9% 1,000 ML IV ONE (19:01)
[2021-02-12] MEDS ORDERED: Ondansetron 4 MG/2 ML SDV IVPUSH ONE (19:34)
[2021-02-12] MEDS ORDERED: Morphine 2 MG/ML SYRINGE IVPUSH ONE ×2 (19:34→20:28)
[2021-02-12 20:45] VITALS: BP 148/63; PULSE 71
== END 2021-02-12 20:55 ==
LOC: LL.ED 17:02
DX: M97.12XA Periprosthetic fracture around internal prosthetic left knee joint, initial encounter (principal); E87.5 Hyperkalemia; E78.00 Pure hypercholesterolemia, unspecified; I12.9 Hypertensive chronic kidney disease with stage 1 through stage 4 chronic kidney disease, or unspecified chronic kidney disease; E11.22 Type 2 diabetes mellitus with diabetic chronic kidney disease; N18.4 Chronic kidney disease, stage 4 (severe); J44.9 Chronic obstructive pulmonary disease, unspecified; N40.0 Benign prostatic hyperplasia without lower urinary tract symptoms; M19.90 Unspecified osteoarthritis, unspecified site; E11.9 Type 2 diabetes mellitus without complications; E66.9 Obesity, unspecified; Z68.37 Body mass index [BMI] 37.0-37.9, adult; Z96.653 Presence of artificial knee joint, bilateral; Z79.01 Long term (current) use of anticoagulants; Z79.899 Other long term (current) drug therapy; W19.XXXA Unspecified fall, initial encounter
CPT/HCPCS: 36415; 73562-LT; 80053; 83735; 84132; 85025; 96374; 96375; 96376; 99284; 99285-25; J2270; J2405; J7030

== ENCOUNTER 2021-02-19 11:15 | Inpatient (IN) | payer MEDICARE, OTHER ==
--- NOTE | 2021-02-19 14:23 | PCM.HP.2 ---
H&P History of Present Illness - General Date of Service: 02/19/21 Admit Problem/Dx: Left periprosthetic femur fracture status post distal femur ORIF on 02/13/2021. History of left total knee arthroplasty Source of Information: Patient History Limitations: Reports: No Limitations - History of Present Illness Initial Comments - Free Text/Narative: [facility] bed status. He is an 80-year-old man with a history of obesity multiple myeloma active chemo followed at heme-onc at [facility]. Diastolic congestive heart failure nonischemic cardiomyopathy, CKD stage IV, hypertension hyperlipidemia Parkinson disease probable dementia. The patient had a mechanical fall on 02/12/2021 resulting in a left periprosthetic femur fracture from a previous left total knee arthroplasty. Patient is now status post distal femur ORIF by Dr. Santana on 02/13/2021. Therapy is recommended low intensity setting and patient is discharged to [facility] swing bed. Today the patient offers up no specific complaints. He is to be two-person assist nonweightbearing left lower extremity. Knee immobilizer for 1 week. Left Leg Pain Score (Numeric/FACES): 3 - Related Data Allergies/Adverse Reactions: Allergies Allergy/AdvReac Type Severity Reaction Status Date / Time No Known Allergies Allergy Verified 02/12/21 17:03 Home Medications: Home Meds Vitamin B Complex [B Complex] 1 each PO DAILY 08/10/13 [History] Cholecalciferol (Vitamin D3) [Vitamin D3] 1,000 unit PO DAILY 01/22/16 [History] Magnesium 400 mg PO DAILY 01/22/16 [History] Zinc 50 mg PO DAILY 01/22/16 [History] Acyclovir 1 tab PO BID 02/12/21 [History] Carbidopa/Levodopa [Carbidopa-Levo ER 25-100] 1 tab PO BID 02/12/21 [History] Folic Acid 1 tab PO DAILY 02/12/21 [History] Furosemide 0.5 tab PO DAILY 02/12/21 [History] HCTZ/Triamterene [Dyazide 25-37.5 MG] 1 cap PO DAILY 02/12/21 [History] Montelukast [Singulair] 10 mg PO ASDIRECTED 02/12/21 [History] Omeprazole 1 cap PO DAILY 02/12/21 [History] atorvaSTATin [Lipitor] 10 mg pe PO BEDTIME 02/12/21 [History] hydrOXYzine pamoate [Hydroxyzine Pamoate] 1 cap PO QID PRN 02/12/21 [History] traZODone 1 tab PO BEDTIME 02/12/21 [History] Acetaminophen 1,000 mg PO TID 02/19/21 [History] Apixaban [Eliquis] 2.5 mg PO BID 02/19/21 [History] Bismuth Subsalicylate 262 mg PO Q6HR PRN 02/19/21 [History] Calcium Carbonate 1,000 mg PO Q4H PRN 02/19/21 [History] Cyanocobalamin (Vitamin B12) [Vitamin B12] 1 tab PO BID 02/19/21 [History] HYDROmorphone HCl/0.9% NaCl/PF [Hydromorphone 0.5 mg/0.5 ml-Ns] 0.5 mg IV Q2H PRN 02/19/21 [History] Ketoconazole 120 ml TP Q3D 02/19/21 [History] Melatonin 3 mg PO BEDTIME PRN 02/19/21 [History] Metoprolol Tartrate [Lopressor] 50 mg PO BID 02/19/21 [History] Naloxone [Narcan] 0.4 mg IJ ASDIRECTED PRN 02/19/21 [History] Sennosides/Docusate Sodium [Senna-Docusate Sodium Tablet] 2 each PO BID 02/19/21 [History] Tamsulosin HCl [Flomax] 0.4 mg PO DAILY 02/19/21 [History] oxyCODONE HCl [Oxycodone HCL] 10 mg PO Q6HR PRN 02/19/21 [History] oxyCODONE HCl [Oxycodone HCl] 10 mg PO Q6H PRN 02/19/21 [History] polyethylene glycoL 3350 [Miralax] 1 pkt PO DAILY PRN 02/19/21 [History] Past Medical History HEENT History: Reports: Hard of Hearing Cardiovascular History: Reports: High Cholesterol, Hypertension Other Cardiovascular History: Carotid Artery stenosis, acute coronary occlusion without myocardial infarction, coronary atherosclerosis of [place] artery, SVT premature beats, Respiratory History: Reports: COPD Gastrointestinal History: Reports: Diverticulosis, Pancreatitis, Other (See Be low) Other Gastrointestinal History: Pepcid Ulcer, umbilical hernia, esophageal reflux Genitourinary History: Reports: BPH, Chronic Renal Insuffiency Other Genitourinary History: impotence, atrophy of testis, stage 3 CKD Musculoskeletal History: Reports: Arthritis Neurological History: Reports: Parkinson's Psychiatric History: Reports: Anxiety, Depression Endocrine/Metabolic History: Reports: Diabetes, Type II, Obesity/BMI 30+, Osteopenia Hematologic History: Reports: Anemia Oncologic (Cancer) History: Reports: Other (See Below) Other Oncologic History: Multiple myeloma - Past Surgical History Cardiovascular Surgical History: Reports: Carotid Endarterectomy GI Surgical History: Reports: Cholecystectomy Musculoskeletal Surgical History: Reports: Amputation, Arthroscopic Knee, Knee Replacement, Other (See Below) Other Musculoskeletal Surgeries/Procedures:: Lumbar spine surgery x 3, left knee replacement Social & Family History - Family History Family Medical History: Unobtainable Cardiac: Reports: [place] Respiratory: Reports: COPD GI: Reports: Cholelithiasis, PUD, Other (See Below) Other GI Family History: GI Disease : Reports: Cystic Kidney Disease, Nephritis Musculoskeletal: Reports: Gout Neurological: Reports: Other (See Below) Other Neurological Family History: Organic brain syndrome Psychiatric: Reports: Depression, Suicide Attempt Endocrine/Metabolic: Reports: Diabetes, type II Oncologic: Reports: Breast, Lung - Tobacco Use Tobacco Use Status *Q: Former Tobacco User Years of Tobacco use: 25 Used Tobacco, but Quit: Yes Month/Year Tobacco Last Used: 04/03 Second Hand Smoke Exposure: No - Caffeine Use Caffeine Use: Reports: None - Recreational Drug Use Recreational Drug Use: No - Living Situation & Occupation Living situation: Reports: , Alone Occupation: Retired H&P Review of Systems - Review of Systems: Review Of Systems: See Below General: Reports: No Symptoms HEENT: Reports: No Symptoms Pulmonary: Reports: No Symptoms Cardiovascular: Reports: No Symptoms Gastrointestinal: Reports: Constipation (He has had some constipation while he was in the hospital but he has had an aggressive bowel regimen and he has no complaints today.) Genitourinary: Reports: Frequency, Urgency (He did have a Turpin placed while he was at [facility]. He has been voiding okay.), Retention Musculoskeletal: Reports: Joint Pain (Left joint pain) Psychiatric: Reports: No Symptoms Neurological: Reports: No Symptoms Hematologic/Lymphatic: Reports: No Symptoms Immunologic: Reports: No Symptoms Exam - Exam Exam: See Below - Vital Signs Vital Signs: Last Vital Signs Temp 96.9 F 02/19/21 11:37 Pulse 83 02/19/21 11:37 Resp 18 02/19/21 11:37 BP 160/69 H 02/19/21 11:37 Pulse Ox 100 02/19/21 11:37 Weight: 261 lb - Exam Quality Assessment: DVT Prophylaxis (Apixaban) General: Alert, Oriented HEENT: Conjunctiva Clear, EOMI Neck: Supple, Trachea Midline Lungs: Clear to Auscultation, Normal Respiratory Effort Cardiovascular: Regular Rate, Regular Rhythm GI/Abdominal Exam: Normal Bowel Sounds, Soft, Non-Tender (Male) Exam: Deferred Rectal (Males) Exam: Deferred Back Exam: Normal Inspection Extremities: No Pedal Edema, Other (There is a lateral incision on the left proximal femur. Dry intact dressing. Wound at this time not observed) Peripheral Pulses: 2+: Radial (L), Radial (R), Posterior Tibial (L), Posterior Tibial (R), Dorsalis Pedis (L), Dorsalis Pedis (R) Skin: Warm, Dry, Intact Neurological: Cranial Nerves Intact, Reflexes Equal Bilateral Neuro Extensive - Mental Status: Alert, Oriented x3, Normal Mood/Affect, Normal Cognition Psychiatric: Alert, Normal Mood Sepsis Event Note - Focused Exam Vital Signs: Vital Signs Temp Pulse Resp BP Pulse Ox 02/19/21 11:37 96.9 F 83 18 160/69 H 100 - Problem List (1) History of total left knee replacement (TKR) SNOMED Code(s): 2579768845540, 651001012, 5847747060817, 31658552563057 ICD Code: Z96.652 - PRESENCE OF LEFT ARTIFICIAL KNEE JOINT Status: Acute Current Visit: Yes (2) CKD (chronic kidney disease), stage IV SNOMED Code(s): 268405939 ICD Code: N18.4 - CHRONIC KIDNEY DISEASE, STAGE 4 (SEVERE) Status: Acute Current Visit: Yes (3) Acute urinary retention SNOMED Code(s): 412180988 ICD Code: R33.8 - OTHER RETENTION OF URINE Status: Acute Current Visit: Yes (4) Hypomagnesemia SNOMED Code(s): 530183947 ICD Code: E83.42 - HYPOMAGNESEMIA Status: Acute Current Visit: Yes (5) Hypertension SNOMED Code(s): 17793276 ICD Code: I10 - ESSENTIAL (PRIMARY) HYPERTENSION Status: Acute Current Visit: Yes (6) Chronic heart failure with preserved ejection fraction (HFpEF) SNOMED Code(s): 552895408, 832596435 ICD Code: I50.32 - CHRONIC DIASTOLIC (CONGESTIVE) HEART FAILURE Status: Acute Current Visit: Yes (7) Hyperlipidemia SNOMED Code(s): 67884652 ICD Code: E78.5 - HYPERLIPIDEMIA, UNSPECIFIED Status: Acute Current Visit: Yes (8) Parkinsons disease SNOMED Code(s): 53013031 ICD Code: G20 - PARKINSON'S DISEASE Status: Acute Current Visit: Yes (9) Drug induced constipation SNOMED Code(s): 59840285 ICD Code: K59.03 - DRUG INDUCED CONSTIPATION Status: Acute Current Visit: Yes (10) Diabetes mellitus type 2 in obese SNOMED Code(s): 80044607 ICD Code: E11.69 - TYPE 2 DIABETES MELLITUS WITH OTHER SPECIFIED COMPLICATION; E66.9 - OBESITY, UNSPECIFIED Status: Acute Current Visit: Yes (11) Periprosthetic fracture around internal prosthetic knee joint SNOMED Code(s): 933812009 ICD Code: M97.8XXA - PERIPROSTH FRACTURE AROUND OTHER INTERNAL PROSTH JOINT, INIT; Z96.659 - PRESENCE OF UNSPECIFIED ARTIFICIAL KNEE JOINT Status: Acute Current Visit: No (12) Multiple myeloma SNOMED Code(s): 951947173 ICD Code: C90.00 - MULTIPLE MYELOMA NOT HAVING ACHIEVED REMISSION Status: Acute Current Visit: Yes (13) Obesity (BMI 30-39.9) SNOMED Code(s): 342761518, 691423645 ICD Code: E66.9 - OBESITY, UNSPECIFIED Status: Acute Current Visit: Yes (14) Insomnia SNOMED Code(s): 157404648 ICD Code: G47.00 - INSOMNIA, UNSPECIFIED Status: Acute Current Visit: Yes Problem List Initiated/Reviewed/Updated: Yes Assessment/Plan Comment:: Assessment plan. Left periprosthetic femur fracture status post distal femur ORIF on 02-13-21. Knee immobilizer at all times Stand with assist of 2. Nonweightbearing left lower extremity. History of left total knee arthroplasty Orthopedic [facility] following. DVT prophylaxis apixaban PT OT nonweightbearing left lower extremity. Knee immobilizer for 1 week. Remove Dale wrap and knee immobilizer every 8 hours for skin checks. Probable narcotic induced constipation continue bowel regimen while on narcotics. Sennadocusate sodium 2 tabs by mouth 2 times a day. Polyethylene glycol 1 packet by mouth 1 times a day as needed for constipation CKD stage IV. Baseline creatinine 2.8 on 01-16-21. Creatinine 2.5 in 1021. Followed by nephrology at [facility]. Lasix triamterene Avoid nephrotoxins such as NSAIDs, IV contrast. Renally dose all meds. Monitor basic metabolic panel urine output. Follow-up with nephrology in the clinic. Acute urinary retention. Consider placement of Turpin if difficulty with urination. Urinalysis pending. Urology follow-up previously made. Hypertension Home Lopressor 50 mg p.o. twice daily. Maxide 25 mg daily. Chronic heart failure preserved ejection fraction. Not in exacerbation. No history of coronary artery disease or [place]. Echo on 02-05-21 shows left ventricular ejection fraction 6570%, grade 1 LV distillates function, normal RV systolic function, mild aortic stenosis. Followed in cardiology at [facility]. Resume home Lasix 60 mg daily. Hyperlipidemia Continue Lipitor at bedtime. Parkinson's disease Continue Sinemet 25-100 mg twice a day. Diabetes type 2. Hemoglobin A1c 7.6 on 10-24-20. Goal POC glucose [id number] We will check hemoglobin A1c in the morning. Determine diabetic management at that time. Multiple myeloma. Follow by Dr. Rossi at [facility] Plan to reevaluate the initiation of chemo therapy in about a month. Continue to hold antineoplastic chemotherapy Lenalidomide for now Herpes prophylaxis due to multiple myeloma. Resume acyclovir 400 mg twice daily. Insomnia Continue trazodone 50 mg at bedtime. GERD and GI prophylaxis. Continue omeprazole 40 mg daily. Hypomagnesemia. Resume home supplemental magnesium oxide twice daily. CODE STATUS full. DVT prophylaxis: Apixaban Diet diabetic, low potassium Base line labs for us on 02/21/21 CBC BMP a1c - Mortality Measure Prognosis:: Good
[2021-02-19] MEDS ORDERED: Melatonin 3 MG Tab PO PRN (17:04)
[2021-02-19] MEDS ORDERED: Polyethylene Glycol 3350 Powder 17 GM Packet PO PRN (17:04)
[2021-02-19] MEDS ORDERED: hydrOXYzine Pamoate 25 MG Cap PO PRN (17:04)
[2021-02-19] MEDS ORDERED: Bismuth Subsalicylate 262 MG/15 ML Susp 236 ML Bottle PO PRN (17:04)
[2021-02-19] MEDS ORDERED: Montelukast 10 MG Tab PO SCH (17:15)
[2021-02-19] MEDS ORDERED: Non-Formulary Medication 1 Each (Ketoconazole [Ketoconazole] 120 ML Shampoo) TP SCH (17:15)
[2021-02-19] MEDS ORDERED: oxyCODONE 5 MG Tab PO PRN ×2 (18:00)
[2021-02-19] MEDS ORDERED: Calcium Carbonate 500 MG Tab.Chew PO PRN (18:00)
[2021-02-19] MEDS: Acyclovir 200 MG Cap PO SCH (19:27)
[2021-02-19] MEDS: Apixaban 2.5 MG Tab PO SCH (19:28)
[2021-02-19] MEDS: atorvaSTATin 10 MG Tab PO SCH (19:28)
[2021-02-19] MEDS: traZODone 50 MG Tab PO SCH (19:29)
[2021-02-19] MEDS: Metoprolol Tartrate 50 MG Tab PO SCH (19:29)
[2021-02-19] MEDS: Acetaminophen 500 MG Tab PO SCH (19:30)
[2021-02-19] MEDS: Carbidopa/Levodopa 25-100 MG Tab PO SCH (19:31)
[2021-02-19] MEDS: Cyanocobalamin (Vitamin B12) 250 MCG Tab PO SCH (19:32)
[2021-02-19] MEDS: Magnesium Oxide 400 MG Tab PO SCH (19:32)
[2021-02-20 07:51] LABS: HEMOGLOBIN A1C 7.7 % (4.3-5.7)
[2021-02-20 08:14] LABS: ANION GAP 18.2 meq/L (7-15)
[2021-02-20] MEDS: Apixaban 2.5 MG Tab PO SCH ×2 (09:07→17:42)
[2021-02-20] MEDS: Hydrochlorothiazide/Triamterene 50-75 MG Tab PO SCH (09:07)
[2021-02-20] MEDS: Acyclovir 200 MG Cap PO SCH ×2 (09:07→17:39)
[2021-02-20] MEDS: Tamsulosin 0.4 MG Cap.ER PO SCH (09:08)
[2021-02-20] MEDS: Vitamin B Complex Tab PO SCH (09:08)
[2021-02-20] MEDS: Zinc (Zinc Gluconate) 50 MG Tab PO SCH (09:08)
[2021-02-20] MEDS: Omeprazole 20 MG Cap.CR PO SCH (09:08)
[2021-02-20] MEDS: Magnesium Oxide 400 MG Tab PO SCH ×2 (09:09→17:41)
[2021-02-20] MEDS: Furosemide 20 MG Tab PO SCH (09:09)
[2021-02-20] MEDS: Acetaminophen 500 MG Tab PO SCH ×4 (09:09→17:44)
[2021-02-20] MEDS: Cyanocobalamin (Vitamin B12) 250 MCG Tab PO SCH ×2 (09:09→19:54)
[2021-02-20] MEDS: Metoprolol Tartrate 50 MG Tab PO SCH ×2 (09:10→18:01)
[2021-02-20] MEDS: Folic Acid 1 MG Tab PO SCH (09:10)
[2021-02-20] MEDS: Carbidopa/Levodopa 25-100 MG Tab PO SCH ×2 (09:10→17:40)
[2021-02-20] MEDS: Cholecalciferol (Vitamin D3) 25 MCG Tab PO SCH (09:10)
[2021-02-20] MEDS: traZODone 50 MG Tab PO SCH (19:54)
[2021-02-20] MEDS: atorvaSTATin 10 MG Tab PO SCH (19:54)
[2021-02-21 08:27] LABS: ANION GAP 17.2 meq/L (7-15)
[2021-02-21] MEDS ORDERED: Sodium Chloride 0.9% 10 ML Syringe FLUSH PRN (08:39)
--- NOTE | 2021-02-21 08:46 | PCM.SN.2 ---
- Free Text/Narrative Note: Patient noted to have Hgb 6.8 this morning. Suspect secondary to recent surgery. Occult blood testing ordered/patient denies bloody stools. Switched from Swing Bed to Inpatient status due to needing PRBC transfusion. Time Documentation
[2021-02-21] MEDS: Metoprolol Tartrate 50 MG Tab PO SCH (08:53)
[2021-02-21] MEDS: Zinc (Zinc Gluconate) 50 MG Tab PO SCH (08:53)
[2021-02-21] MEDS: Tamsulosin 0.4 MG Cap.ER PO SCH (08:53)
[2021-02-21] MEDS: Folic Acid 1 MG Tab PO SCH (08:53)
[2021-02-21] MEDS: Acyclovir 200 MG Cap PO SCH (08:53)
[2021-02-21] MEDS: Acetaminophen 500 MG Tab PO SCH ×2 (08:53→16:03)
[2021-02-21] MEDS: Vitamin B Complex Tab PO SCH (08:54)
[2021-02-21] MEDS: Carbidopa/Levodopa 25-100 MG Tab PO SCH (08:54)
[2021-02-21] MEDS: Cholecalciferol (Vitamin D3) 25 MCG Tab PO SCH (08:54)
[2021-02-21] MEDS: Omeprazole 20 MG Cap.CR PO SCH (08:54)
[2021-02-21] MEDS: Hydrochlorothiazide/Triamterene 50-75 MG Tab PO SCH (08:54)
[2021-02-21] MEDS: Magnesium Oxide 400 MG Tab PO SCH (08:54)
[2021-02-21] MEDS: Furosemide 20 MG Tab PO SCH (08:55)
[2021-02-21] MEDS: Cyanocobalamin (Vitamin B12) 250 MCG Tab PO SCH (09:04)
[2021-02-21] MEDS ORDERED: Non-Formulary Medication 1 Each (Ketoconazole [Ketoconazole] 120 ML Shampoo) TP SCH (09:15)
[2021-02-21] MEDS ORDERED: Montelukast 10 MG Tab PO SCH (09:15)
--- NOTE | 2021-02-21 14:32 | PCM.DCSUM1 ---
Discharge Summary - Hospital Course Brief History: Patient admitted to swing bed for PT/OT after undergoing surgical repair for julius-prosthetic distal femur fracture. Diagnosis: Stroke: No - Discharge Data Discharge Date: 02/21/21 Discharge Disposition: DC/Tfer to Acute Hospital 02 Condition: Good - Referral to Home Health Primary Care Physician: AILYN Lal - Discharge Diagnosis/Problem(s) (1) Anemia SNOMED Code(s): 657685592 ICD Code: D64.9 - ANEMIA, UNSPECIFIED Status: Acute Priority: High Current Visit: Yes Problem Details: Patient has history of anemia and had sudden decrease Hgb from 8.1 when admitted to Swing down to 6.9 today. Suspect multiple contributing factors, including recent left knee periprosthetic fracture repair, chronic kidney disease, and multiple myeloma. Vital signs stable. Patient asymptomatic. Qualifiers: Anemia type: unspecified type Qualified Code(s): D64.9 - Anemia, un specified (2) Acute urinary retention SNOMED Code(s): 497067363 ICD Code: R33.8 - OTHER RETENTION OF URINE Status: Acute Priority: Medium Current Visit: Yes Problem Details: Noted to have blood in urine yesterday and complained of not being able to void. Arce inserted and approx 1750 ml of urine drained from bladder. Patient noted to have some blood clots in the urine. Uncertain as to etiology. May be related to recent arce placement when initial fracture evaluated and repaired. UA shows large amount of blood but no evidence if UTI. Arce left in place. /Wilber informed of this and will have Urology see patient if needed. Elirosalieis being held (3) Hyperkalemia SNOMED Code(s): 74473819 ICD Code: E87.5 - HYPERKALEMIA Status: Acute Priority: Medium Current Visit: Yes Problem Details: Potassium level decreased from 5.4 yesterday to 5.0 today. Suspect secondary to chronic renal disease. (4) CKD (chronic kidney disease), stage IV SNOMED Code(s): 119400668 ICD Code: N18.4 - CHRONIC KIDNEY DISEASE, STAGE 4 (SEVERE) Status: Chronic Priority: Medium Current Visit: Yes Problem Details: Creatinine has been stable at 3.45 since admission. This is slightly more elevated than when he presented for initial fracture evalution last week. (5) Hypertension SNOMED Code(s): 12190555 ICD Code: I10 - ESSENTIAL (PRIMARY) HYPERTENSION Status: Chronic Priority: Low Current Visit: Yes Problem Details: Overall stable during stay. Qualifiers: Hypertension type: primary hypertension Qualified Code(s): I10 - Essential (primary) hypertension (6) Chronic heart failure with preserved ejection fraction (HFpEF) SNOMED Code(s): 796955412, 580177703 ICD Code: I50.32 - CHRONIC DIASTOLIC (CONGESTIVE) HEART FAILURE Status: Chronic Priority: Low Current Visit: Yes Problem Details: No complaints of acute SOB/edema (7) Hyperlipidemia SNOMED Code(s): 44473409 ICD Code: E78.5 - HYPERLIPIDEMIA, UNSPECIFIED Status: Chronic Priority: Low Current Visit: No Problem Details: continue home medication (8) Diabetes mellitus type 2 in obese SNOMED Code(s): 65387144 ICD Code: E11.69 - TYPE 2 DIABETES MELLITUS WITH OTHER SPECIFIED COMPLICATION; E66.9 - OBESITY, UNSPECIFIED Status: Chronic Priority: Low Current Visit: Yes Problem Details: A1c 7.7 Blood sugars have been stable. (9) Multiple myeloma SNOMED Code(s): 473020896 ICD Code: C90.00 - MULTIPLE MYELOMA NOT HAVING ACHIEVED REMISSION Status: C hronic Priority: Low Current Visit: No Problem Details: Recently diagnosed. Being followed by [facility] for this. Qualifiers: Multiple myeloma remission status: unspecified Qualified Code(s): C90.00 - Multiple myeloma not having achieved remission (10) Obesity (BMI 30-39.9) SNOMED Code(s): 549175840, 403858015 ICD Code: E66.9 - OBESITY, UNSPECIFIED Status: Chronic Priority: Low Current Visit: Yes Problem Details: Diet/lifestyle modifications reviewed with patient. May benefit from referral to drilling manager when discharged from swing bed. (11) Parkinsons disease SNOMED Code(s): 78619112 ICD Code: G20 - PARKINSON'S DISEASE Status: Acute Priority: Low Current Visit: No Problem Details: Continue home medications (12) Anxiety SNOMED Code(s): 58553616 ICD Code: F41.9 - ANXIETY DISORDER, UNSPECIFIED Status: Chronic Priority: Low Current Visit: No Problem Details: Continue home medication. Stable per history (13) BPH (benign prostatic hyperplasia) SNOMED Code(s): 260878533 ICD Code: N40.0 - BENIGN PROSTATIC HYPERPLASIA WITHOUT LOWER URINRY TRACT SYMP Status: Chronic Priority: Medium Current Visit: Yes Problem Details: As noted above 1750ml retained urine noted when patient had Arce placed. Is on Flomax. Qualifiers: Lower urinary tract symptom presence: symptoms present Lower urinary tract symptom detail: incomplete bladder emptying Qualified Code(s): N40.1 - Benign prostatic hyperplasia with lower urinary tract symptoms; R39.14 - Feeling of incomplete bladder emptying (14) Confusion SNOMED Code(s): 063520500 ICD Code: R41.0 - DISORIENTATION, UNSPECIFIED Status: Acute Priority: Medium Current Visit: Yes Problem Details: Waxing/waning confusion mostly noted by nursing staff. Did not know year when asked, guessed 2022. Knew he was in [place]. Thought month was February. Oriented to self/name/birthdate/where he lives. - Patient Summary/Data Consults: Consultations 02/19/21 23:47 Consult to Case Management/Railroad Brake Repairer [CONS] Routine OT Evaluation and Treatment [CONS] Routine PT Evaluation and Treatment [CONS] Routine Hospital Course: Patient admitted to Swing Bed. Some concern per nursing personnel that pt may be intermittently confused. Noted to have hematuria yesterday and subsequent Arce placement showed 1750ml retained urine with clotted blood present. Suspect may be due to patient's recent surgery/arce at that time. No evidence of acute UTI. Labs rechecked today and they showed a sharp decrease in Hgb down to 6.9. Hematuria suspected to be part of cause of decrease but patient also had the recent surgery along with chronic kidney disease. Pt without complaint. Eating/drinking/vital signs stable. Type/screen showed patient to be A negative. No blood available here and would need to be ordered. Given the significant urinary retention/blood clots along with the need for transfusion and patient's post-op status, call placed to [place] and patient reviewed with . It was decided to transfer him back to [place] for transfusion and urology will be able to consult in regards to the hematuria. Patient agreeable with plan. Can return to Swing Bed once the above issues are sorted out/treatment plan initiated. - Discharge Plan Home Medications: Home Meds Vitamin B Complex [B Complex] 1 each PO DAILY 08/10/13 [History] Cholecalciferol (Vitamin D3) [Vitamin D3] 1,000 unit PO DAILY 01/22/16 [History] Magnesium 400 mg PO DAILY 01/22/16 [History] Zinc 50 mg PO DAILY 01/22/16 [History] Acyclovir 1 tab PO BID 02/12/21 [History] Carbidopa/Levodopa [Carbidopa-Levo ER 25-100] 1 tab PO BID 02/12/21 [History] Folic Acid 1 tab PO DAILY 02/12/21 [History] Furosemide 0.5 tab PO DAILY 02/12/21 [History] HCTZ/Triamterene [Dyazide 25-37.5 MG] 1 cap PO DAILY 02/12/21 [History] Montelukast [Singulair] 10 mg PO ASDIRECTED 02/12/21 [History] Omeprazole 1 cap PO DAILY 02/12/21 [History] atorvaSTATin [Lipitor] 10 mg pe PO BEDTIME 02/12/21 [History] hydrOXYzine pamoate [Hydroxyzine Pamoate] 1 cap PO QID PRN 02/12/21 [History] traZODone 1 tab PO BEDTIME 02/12/21 [History] Acetaminophen 1,000 mg PO TID 02/19/21 [History] Apixaban [Eliquis] 2.5 mg PO BID 02/19/21 [History] Bismuth Subsalicylate 262 mg PO Q6HR PRN 02/19/21 [History] Calcium Carbonate 1,000 mg PO Q4H PRN 02/19/21 [History] Cyanocobalamin (Vitamin B12) [Vitamin B12] 1 tab PO BID 02/19/21 [History] HYDROmorphone HCl/0.9% NaCl/PF [Hydromorphone 0.5 mg/0.5 ml-Ns] 0.5 mg IV Q2H PRN 02/19/21 [History] Ketoconazole 120 ml TP Q3D 02/19/21 [History] Melatonin 3 mg PO BEDTIME PRN 02/19/21 [History] Metoprolol Tartrate [Lopressor] 50 mg PO BID 02/19/21 [History] Naloxone [Narcan] 0.4 mg IJ ASDIRECTED PRN 02/19/21 [History] Sennosides/Docusate Sodium [Senna-Docusate Sodium Tablet] 2 each PO BID 02/19/21 [History] Tamsulosin HCl [Flomax] 0.4 mg PO DAILY 02/19/21 [History] oxyCODONE HCl [Oxycodone HCL] 10 mg PO Q6HR PRN 02/19/21 [History] oxyCODONE HCl [Oxycodone HCl] 10 mg PO Q6H PRN 02/19/21 [History] polyethylene glycoL 3350 [Miralax] 1 pkt PO DAILY PRN 02/19/21 [History] - Discharge Summary/Plan Comment DC Time >30 min.: Yes (waiting for EMS transport to become available) Total # of Minutes for Discharge Time: 30 - General Info Date of Service: 02/21/21 Admission Dx/Problem (Free Text: Left periprosthetic femur fracture status post distal femur ORIF on 02/13/2021. History of left total knee arthroplasty Subjective Update: Patient has no acute complaints. Pain from recent left knee surgery tolerable with current pain medications. Functional Status: Reports: Pain Controlled, Tolerating Diet, Urinating (has Arce). Denies: Ambulating, New Symptoms - Review of Systems General: Denies: Fever, Malaise, Chills, Night Sweats HEENT: Reports: Other (no acute changes) Pulmonary: Denies: Shortness of Breath, Pleuritic Chest Pain, Cough, Sputum, Hemoptysis, Wheezing Cardiovascular: Denies: Chest Pain, Palpitations, Orthopnea Gastrointestinal: Denies: Abdominal Pain, Diarrhea, Melena, Nausea, Vomiting Genitourinary: Reports: Hematuria, Retention. Denies: Frequency, Burning, Pain, Urgency, Flank Pain Musculoskeletal: Reports: Other (no acute changes reported, recent left knee surgery) Skin: Reports: Other (no acute changes) Neurological: Reports: Other (Nursing staff feels patient intermittently confused) Psychiatric: Reports: Confusion. Denies: Anxiety, Agitation, Hallucinations, Suicidal Ideation, Homicidal Ideation - Patient Data Vitals - Most Recent: Last Vital Signs Temp 35.7 C L 02/20/21 20:00 Pulse 79 02/21/21 08:53 Resp 20 02/20/21 20:00 BP 138/64 02/21/21 08:53 Pulse Ox 91 L 02/20/21 20:00 Weight - Most Recent: 118.388 kg I&O - Last 24 hours: Intake & Output 02/20/21 02/21/21 02/21/21 22:59 06:59 14:59 Intake Total 750 Output Total 350 800 Balance 400 -800 Lab Results - Last 24 hrs: Laboratory Results - last 24 hr 02/20/21 02/21/21 02/21/21 Range/Units 16:59 07:38 07:40 WBC 7.0 (4.0-10.2) K/uL RBC 2.19 L (4.33-5.41) M/uL Hgb 6.9 L* (13.1-16.8) g/dL Hct 21.4 L* (39.0-49.0) % MCV 97.7 (84.0-98.0) fL MCH 31.5 (28.2-33.3) pg MCHC 32.2 (31.7-36.0) g/dL RDW 14.4 H (11.2-14.1) % Plt Count 337 (150-350) K/uL Neut % (Auto) 69.4 (45.0-80.0) % Lymph % (Auto) 12.1 (10.0-50.0) % [place] % (Auto) 12.5 (2.0-14.0) % Eos % (Auto) 4.7 (0.0-5.0) % Baso % (Auto) 1.3 (0.0-2.0) % Neut # (Auto) 4.87 (1.40-7.00) K/uL Lymph # (Auto) 0.85 (0.50-3.50) K/uL [place] # (Auto) 0.88 (0.00-1.00) K/uL Eos # (Auto) 0.33 (0.00-0.50) K/uL Baso # (Auto) 0.09 (0.00-0.20) K/uL Sodium (136-145) mmol/L Potassium (3.5-5.1) mmol/L Chloride (98-107) mmol/L Carbon Dioxide (21.0-32.0) mmol/L Anion Gap (7-15) meq/L BUN (7-18) mg/dL Creatinine (0.51-1.17) mg/dL Est Cr Clr Drug Dosing mL/min Estimated GFR (MDRD) mL/min Glucose (70-99) mg/dL POC Glucose 140 H 153 H (70-99) mg/dL Calcium (8.5-10.1) mg/dL 02/21/21 Range/Units 07:40 WBC (4.0-10.2) K/uL RBC (4.33-5.41) M/uL Hgb (13.1-16.8) g/dL Hct (39.0-49.0) % MCV (84.0-98.0) fL MCH (28.2-33.3) pg MCHC (31.7-36.0) g/dL RDW (11.2-14.1) % Plt Count (150-350) K/uL Neut % (Auto) (45.0-80.0) % Lymph % (Auto) (10.0-50.0) % [place] % (Auto) (2.0-14.0) % Eos % (Auto) (0.0-5.0) % Baso % (Auto) (0.0-2.0) % Neut # (Auto) (1.40-7.00) K/uL Lymph # (Auto) (0.50-3.50) K/uL [place] # (Auto) (0.00-1.00) K/uL Eos # (Auto) (0.00-0.50) K/uL Baso # (Auto) (0.00-0.20) K/uL Sodium 135 L (136-145) mmol/L Potassium 5.0 (3.5-5.1) mmol/L Chloride 102 (98-107) mmol/L Carbon Dioxide 20.8 L (21.0-32.0) mmol/L Anion Gap 17.2 H (7-15) meq/L BUN 103 H* (7-18) mg/dL Creatinine 3.45 H* (0.51-1.17) mg/dL Est Cr Clr Drug Dosing 17.58 mL/min Estimated GFR (MDRD) 17 mL/min Glucose 155 H (70-99) mg/dL POC Glucose (70-99) mg/dL Calcium 8.6 (8.5-10.1) mg/dL Med Orders - Current: Current Medications Acetaminophen (Acetaminophen 500 Mg Tab) 1,000 mg PO TID TOSIN Last Admin: 02/21/21 08:53 Dose: 1,000 mg Documented by: Acyclovir (Acyclovir 200 Mg Cap) 400 mg PO BID [facility] Last Admin: 02/21/21 08:53 Dose: 400 mg Documented by: Apixaban (Apixaban 2.5 Mg Tab) 2.5 mg PO BID [facility] Stop: 03/15/21 18:01 Last Admin: 02/20/21 17:42 Dose: Not Given Documented by: Atorvastatin Calcium (Atorvastatin 10 Mg Tab) 10 mg PO BEDTIME [facility] Last Admin: 02/20/21 19:54 Dose: 10 mg Documented by: Bismuth Subsalicylate (Bismuth Subsalicylate 262 Mg/15 Ml Susp 236 Ml Bottle) 15 ml PO Q6HR PRN PRN Reason: Heartburn Calcium Carbonate/Glycine (Calcium Carbonate 500 Mg Tab.Chew) 1,000 mg PO Q4H PRN PRN Reason: Heartburn Carbidopa/Levodopa (Carbidopa/Levodopa 25-100 Mg Tab) 1 tab PO BID [facility] Last Admin: 02/21/21 08:54 Dose: 1 tab Documented by: Cholecalciferol (Cholecalciferol (Vitamin D3) 25 Mcg Tab) 25 mcg PO DAILY [facility] Last Admin: 02/21/21 08:54 Dose: 25 mcg Documented by: Cyanocobalamin (Cyanocobalamin (Vitamin B12) 250 Mcg Tab) 500 mcg PO BID [facility] Last Admin: 02/21/21 09:04 Dose: 500 mcg Documented by: Folic Acid (Folic Acid 1 Mg Tab) 1 mg PO DAILY [facility] Last Admin: 02/21/21 08:53 Dose: 1 mg Documented by: Furosemide (Furosemide 20 Mg Tab) 60 mg PO DAILY [facility] Last Admin: 02/21/21 08:55 Dose: Not Given Documented by: Hydroxyzine Pamoate (Hydroxyzine Pamoate 25 Mg Cap) 25 mg PO QID PRN PRN Reason: Anxiety Magnesium Oxide (Magnesium Oxide 400 Mg Tab) 400 mg PO BID [facility] Last Admin: 02/21/21 08:54 Dose: 400 mg Documented by: Melatonin (Melatonin 3 Mg Tab) 3 mg PO BEDTIME PRN PRN Reason: Insomnia Metoprolol Tartrate (Metoprolol Tartrate 50 Mg Tab) 50 mg PO BID [facility] Last Admin: 02/21/21 08:53 Dose: 50 mg Documented by: Montelukast Sodium (Montelukast 10 Mg Tab) 10 mg PO ASDIRECTED [facility] Non-Formulary Medication (Ketoconazole [Ketoconazole]) 120 ml TP Q3D [facility] Omeprazole (Omeprazole 20 Mg Cap.Cr) 40 mg PO DAILY [facility] Last Admin: 02/21/21 08:54 Dose: 40 mg Documented by: Oxycodone HCl (Oxycodone 5 Mg Tab) 10 mg PO Q6H PRN PRN Reason: Pain (severe 7-10) Stop: 02/22/21 18:01 Oxycodone HCl (Oxycodone 5 Mg Tab) 5 mg PO Q6H PRN PRN Reason: Pain (moderate 4-6) Polyethylene Glycol (Polyethylene Glycol 3350 Powder 17 Gm Packet) 17 gm PO DAILY PRN PRN Reason: Constipation Senna/Docusate Sodium (Docusate Sodium/Sennosides 50-8.6 Mg Tab) 2 tab PO BID [facility] Last Admin: 02/21/21 08:53 Dose: 2 tab Documented by: Sodium Chloride (Sodium Chloride 0.9% 10 Ml Syringe) 10 ml FLUSH ASDIRECTED PRN PRN Reason: Keep Vein Open Tamsulosin HCl (Tamsulosin 0.4 Mg Cap.Er) 0.4 mg PO DAILY [facility] Last Admin: 02/21/21 08:53 Dose: 0.4 mg Documented by: Trazodone HCl (Trazodone 50 Mg Tab) 50 mg PO BEDTIME [facility] Last Admin: 02/20/21 19:54 Dose: 50 mg Documented by: Triamterene/Hydrochlorothiazide (Hydrochlorothiazide/Triamterene 50-75 Mg Tab) 0.5 each PO DAILY [facility] Last Admin: 02/21/21 08:54 Dose: 0.5 each Documented by: Vitamin B Complex (Vitamin B Complex Tab) 1 each PO DAILY [facility] Last Admin: 02/21/21 08:54 Dose: 1 each Documented by: Zinc Gluconate (Zinc (Zinc Gluconate) 50 Mg Tab) 50 mg PO DAILY [facility] Last Admin: 02/21/21 08:53 Dose: 50 mg Documented by: Discontinued Medications Montelukast Sodium (Montelukast 10 Mg Tab) 10 mg PO ASDIRECTED [facility] Non-Formulary Medication (Ketoconazole [Ketoconazole]) 120 ml TP Q3D TOSIN - Exam Quality Assessment: Reports: Urine Catheter General: Reports: Alert, Cooperative, No Acute Distress HEENT: Reports: Pupils Equal, Pupils Reactive, EOMI, Mucous Membr. Moist/[place]: Reports: Supple Lungs: Reports: Clear to Auscultation, Normal Respiratory Effort, Decreased Breath Sounds (throughout) Cardiovascular: Reports: Regular Rate, Regular Rhythm GI/Abdominal Exam: Normal Bowel Sounds, Soft, Non-Tender, No Distention (Male) Exam: Deferred Rectal (Males) Exam: Deferred Back Exam: Denies: CVA Tenderness (L), CVA Tenderness (R), Muscle Spasm Extremities: Normal Capillary Refill, Other (healing recent left knee surgery/TKA) Skin: Reports: Warm, Dry Wound/Incisions: Reports: Healing Well Neurological: Reports: No New Focal Deficit Psy/Mental Status: Reports: Alert, Normal Affect, Normal Mood, Other (Does not know month/year. ) *Q Meaningful Use (DIS) - VTE *Q VTE Anticoagulation Contraindications: Med/TX Not Indicated/Need
[2021-02-21 17:14] VITALS: BP 143/63; PULSE 77
== END 2021-02-21 17:26 | DRG 560 ==
LOC: LL.MS 11:15 → UNDODISIN 02-21 09:06
PROVIDERS: ADMIT Nurse Practitioner Family; ATTEND Nurse Practitioner Family
DX: M97.12XD Periprosthetic fracture around internal prosthetic left knee joint, subsequent encounter (principal); N18.4 Chronic kidney disease, stage 4 (severe); I50.32 Chronic diastolic (congestive) heart failure; I13.0 Hypertensive heart and chronic kidney disease with heart failure and stage 1 through stage 4 chronic kidney disease, or unspecified chronic kidney disease; C90.00 Multiple myeloma not having achieved remission; D63.1 Anemia in chronic kidney disease; R33.8 Other retention of urine; E87.5 Hyperkalemia; E11.22 Type 2 diabetes mellitus with diabetic chronic kidney disease; R41.0 Disorientation, unspecified; N40.1 Benign prostatic hyperplasia with lower urinary tract symptoms; R39.14 Feeling of incomplete bladder emptying; G20 Parkinson's disease; F41.9 Anxiety disorder, unspecified; E66.9 Obesity, unspecified; E78.00 Pure hypercholesterolemia, unspecified; H91.90 Unspecified hearing loss, unspecified ear; J44.9 Chronic obstructive pulmonary disease, unspecified; M19.90 Unspecified osteoarthritis, unspecified site; E83.42 Hypomagnesemia; F32.A Depression, unspecified; Z87.891 Personal history of nicotine dependence; Z63.1 Problems in relationship with in-laws; Z79.899 Other long term (current) drug therapy; Z90.49 Acquired absence of other specified parts of digestive tract; Z68.36 Body mass index [BMI] 36.0-36.9, adult
CPT/HCPCS: 36415; 51702; 80048; 81001; 82947; 83036; 85025; 97110-GP; 97163-GP; 97165-GO; 97530-GP; A9270-GY

== ENCOUNTER 2021-02-21 09:00 | Inpatient (IN) | payer MEDICARE, OTHER ==
[2021-02-26] MEDS ORDERED: Calcium Carbonate 500 MG Tab.Chew PO PRN (18:09)
[2021-02-26] MEDS ORDERED: Naloxone 0.4 MG/ML SDV IM PRN ×2 (18:09)
[2021-02-26] MEDS ORDERED: Polyethylene Glycol 3350 Powder 17 GM Packet PO PRN (18:09)
[2021-02-26] MEDS ORDERED: Montelukast 10 MG Tab PO SCH (18:15)
--- NOTE | 2021-02-26 18:21 | PCM.HP.2 ---
H&P History of Present Illness - General Date of Service: 02/26/21 Admit Problem/Dx: Admission Diagnosis/Problem Admission Diagnosis/Problem Status post fracture of femur Source of Information: Patient, Old Records History Limitations: Reports: Other (Pt has chronic mild confusion) - History of Present Illness Initial Comments - Free Text/Narative: Patient transferred to [facility] for PT/OT after undergoing surgical repair for left periprosthetic distal femur fracture. Obtained care at [facility]. Was a Swing Bed patient last week but did get transferred to [facility] after a hemoglobin drop to 6.9 along with sudden large amounts of clotted blood in urine and urine retention. He was transfused at [facility] with A negative blood and also evaluate by Urology. Ultimately started on Cipro for UTI and continues to require a Turpin until a recheck with Urology later this month for continued workup. He returns to continue with PT/OT. It has been noted that patient has c hronic baseline confusion that appears to be mild, and this causes some doubt in his ability to safely return to living in his house alone. Lower Back Pain Score (Numeric/FACES): 2 - Related Data Allergies/Adverse Reactions: Allergies Allergy/AdvReac Type Severity Reaction Status Date / Time No Known Allergies Allergy Verified 02/12/21 17:03 Home Medications: Home Meds Vitamin B Complex [B Complex] 1 each PO DAILY 08/10/13 [History] Cholecalciferol (Vitamin D3) [Vitamin D3] 1,000 unit PO DAILY 01/22/16 [History] Acyclovir 1 tab PO BID 02/12/21 [History] Carbidopa/Levodopa [Carbidopa-Levo ER 25-100] 1 tab PO BID 02/12/21 [History] Montelukast [Singulair] 10 mg PO ASDIRECTED 02/12/21 [History] Omeprazole 1 cap PO DAILY 02/12/21 [History] atorvaSTATin [Lipitor] 10 mg pe PO BEDTIME 02/12/21 [History] traZODone 0.5 tab PO BEDTIME 02/12/21 [History] Acetaminophen 1,000 mg PO TID 02/19/21 [History] Calcium Carbonate 1,000 mg PO Q4H PRN 02/19/21 [History] Melatonin 3 mg PO BEDTIME PRN 02/19/21 [History] Metoprolol Tartrate [Lopressor] 50 mg PO BID 02/19/21 [History] Naloxone [Narcan] 0.4 mg IJ ASDIRECTED PRN 02/19/21 [History] Sennosides/Docusate Sodium [Senna-Docusate Sodium Tablet] 2 each PO BID 02/19/21 [History] Tamsulosin HCl [Flomax] 0.4 mg PO DAILY 02/19/21 [History] polyethylene glycoL 3350 [Miralax] 1 pkt PO DAILY PRN 02/19/21 [History] Apixaban [Eliquis] 2.5 mg PO BID 02/26/21 [History] Aspirin 325 mg PO DAILY 02/26/21 [History] Ciprofloxacin [Ciprofloxacin HCl] 1 tab PO DAILY@1700 02/26/21 [History] Finasteride [Proscar] 1 tab PO DAILY 02/26/21 [History] Furosemide [Lasix] 3 tab PO DAILY 02/26/21 [History] Naloxone [Narcan] 0.2 mg IJ ASDIRECTED PRN 02/26/21 [History] oxyCODONE 1 tab PO Q6HR PRN 02/26/21 [History] Past Medical History HEENT History: Reports: Hard of Hearing Cardiovascular History: Reports: High Cholesterol, Hypertension Other Cardiovascular History: Carotid Artery stenosis, acute coronary occlusion without myocardial infarction, coronary atherosclerosis of [place] artery, SVT premature beats, Respiratory History: Reports: COPD Gastrointestinal History: Reports: Diverticulosis, Pancreatitis, Other (See Below) Other Gastrointestinal History: Pepcid Ulcer, umbilical hernia, esophageal reflux Genitourinary History: Reports: BPH, Chronic Renal Insuffiency Other Genitourinary History: impotence, atrophy of testis, stage 3 CKD Musculoskeletal History: Reports: Arthritis Neurological History: Reports: Parkinson's, Other (See Below) (Frequent mild confusion noted during Swing Bed stay.) Psychiatric History: Reports: Anxiety, Depression Endocrine/Metabolic History: Reports: Diabetes, Type II, Obesity/BMI 30+, Osteopenia Hematologic History: Reports: Anemia Oncologic (Cancer) History: Reports: Other (See Below) Other Oncologic History: Multiple myeloma - Past Surgical History Cardiovascular Surgical History: Reports: Carotid Endarterectomy GI Surgical History: Reports: Cholecystectomy Musculoskeletal Surgical History: Reports: Amputation, Arthroscopic Knee, Knee Replacement, Other (See Below) Other Musculoskeletal Surgeries/Procedures:: Lumbar spine surgery x 3, left knee replacement Social & Family History - Family History Family Medical History: Unobtainable Cardiac: Reports: [place] Respiratory: Reports: COPD GI: Reports: Cholelithiasis, PUD, Other (See Below) Other GI Family History: GI Disease : Reports: Cystic Kidney Disease, Nephritis Musculoskeletal: Reports: Gout Neurological: Reports: Other (See Below) Other Neurological Family History: Organic brain syndrome Psychiatric: Reports: Depression, Suicide Attempt Endocrine/Metabolic: Reports: Diabetes, type II Oncologic: Reports: Breast, Lung - Tobacco Use Tobacco Use Status *Q: Former Tobacco User Years of Tobacco use: 25 Used Tobacco, but Quit: Yes Month/Year Tobacco Last Used: 03/1979 Second Hand Smoke Exposure: No - Caffeine Use Caffeine Use: Reports: Coffee - Recreational Drug Use Recreational Drug Use: No - Living Situation & Occupation Living situation: Reports: , Alone Occupation: Retired H&P Review of Systems - Review of Systems: Review Of Systems: See Below General: Reports: No Symptoms HEENT: Reports: No Symptoms Pulmonary: Reports: No Symptoms. Denies: Shortness of Breath, Wheezing, Pleuritic Chest Pain, Cough, Sputum Cardiovascular: Reports: No Symptoms. Denies: Chest Pain, Edema Gastrointestinal: Reports: Constipation (Some constipation noted/is on narcotic pain medication). Denies: Abdominal Pain, Nausea, Vomiting Genitourinary: Reports: Retention, Other (has Turpin) Musculoskeletal: Reports: Other (Left distal femur discomfort post surgery/fracture) Skin: Reports: Other (no acute complaints) Psychiatric: Reports: Confusion. Denies: Depression, Anxiety, Hallucinations, Hallucinations (Auditory), Hallucinations (Visual) Neurological: Reports: Confusion, Difficulty Walking (since fracture). Denies: Trouble Speaking, Change in Speech Hematologic/Lymphatic: Reports: Anemia Immunologic: Reports: No Symptoms Exam - Exam Exam: See Below - Vital Signs Vital Signs: Last Vital Signs Temp 35.9 C L 02/26/21 16:45 Pulse 70 02/26/21 16:45 Resp 18 02/26/21 16:45 BP 100/61 02/26/21 16:45 Pulse Ox 95 02/26/21 16:45 Weight: 114.986 kg - Exam Quality Assessment: DVT Prophylaxis General: Alert, Other (oriented to self/birthdate. Not able to say date/year/month. Knows he is in [place]) HEENT: Conjunctiva Clear, EACs Clear, EOMI, Nares Patent, Pupils Equal, Pupils Reactive, PERRLA (hard of hearing) Neck: Supple, Trachea Midline Lungs: Clear to Auscultation, Normal Respiratory Effort, Decreased Breath Sounds Cardiovascular: Regular Rate, Regular Rhythm. No: Systolic Murmur, Diastolic Murmur GI/Abdominal Exam: Normal Bowel Sounds, Soft, Non-Tender, No Distention (Male) Exam: Deferred Rectal (Males) Exam: Deferred Back Exam: No: CVA Tenderness (L), CVA Tenderness (R), Muscle Spasm, Paraspinal Tenderness, Vertebral Tenderness Extremities: Normal Capillary Refill, Other (Moves upper extremities and right leg well. Has immobilizer on left leg. 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 Here for PT/OT (2) UTI (urinary tract infection) SNOMED Code(s): 00872019 ICD Code: N39.0 - URINARY TRACT INFECTION, SITE NOT SPECIFIED Status: Acute Priority: Medium Current Visit: Yes Problem Details: Started on Cipro by [facility] for UTI Qualifiers: Urinary tract infection type: site unspecified Hematuria presence: with hematuria Qualified Code(s): N39.0 - Urinary tract infection, site not specified; R31.9 - Hematuria, unspecified (3) Acute urinary retention SNOMED Code(s): 831259013 ICD Code: R33.8 - OTHER RETENTION OF URINE Status: Acute Priority: Medium Current Visit: Yes Problem Details: Noted to have blood in urine last SB admisison and complained of not being able to void. Turpin inserted and approx 1750 ml of urine drained from bladder. Patient noted to have some blood clots in the urine. Evaluated by Urology at [facility]. Is to continue with Turpin placement until he is seen by Urology later this month for a follow up appointment. (4) Anemia SNOMED Code(s): 875132841 ICD Code: D64.9 - ANEMIA, UNSPECIFIED Status: Acute Priority: Medium Current Visit: Yes Problem Details: Patient has history of anemia. Transfused this past week by [facility]. Recheck CBC Tuesday, two days from now. Suspect combination of chronic disease/kidney disease/recent surgery. Qualifiers: Anemia type: other cause Qualified Code(s): D64.9 - Anemia, unspecified (5) Confusion SNOMED Code(s): 769836704 ICD Code: R41.0 - DISORIENTATION, UNSPECIFIED Status: Acute Priority: Medium Current Visit: Yes Problem Details: Waxing/waning confusion mostly noted by nursing staff. Needs formal cognitive evaluation. (6) Drug induced constipation SNOMED Code(s): 33874810 ICD Code: K59.03 - DRUG INDUCED CONSTIPATION Status: Acute Priority: Low Current Visit: Yes Problem Details: Continue Metamucil (7) Parkinsons disease SNOMED Code(s): 38185724 ICD Code: G20 - PARKINSON'S DISEASE Status: Chronic Priority: Low Current Visit: Yes Problem Details: Continue home medications (8) Anxiety SNOMED Code(s): 29401152 ICD Code: F41.9 - ANXIETY DISORDER, UNSPECIFIED Status: Chronic Priority: Low Current Visit: No Problem Details: Continue home medication. Stable per history (9) BPH (benign prostatic hyperplasia) SNOMED Code(s): 708360493 ICD Code: N40.0 - BENIGN PROSTATIC HYPERPLASIA WITHOUT LOWER URINRY TRACT SYMP Status: Chronic Priority: Low Current Visit: Yes Problem Details: As noted above 1750ml retained urine noted when patient had Turpin placed. Is on Flomax. Follow up appointment scheduled with [facility] later this month Qualifiers: Lower urinary tract symptom presence: symptoms present Lower urinary tract symptom detail: incomplete bladder emptying Qualified Code(s): N40.1 - Benign prostatic hyperplasia with lower urinary tract symptoms; R39.14 - Feeling of incomplete bladder emptying (10) CKD (chronic kidney disease), stage IV SNOMED Code(s): 647526845 ICD Code: N18.4 - CHRONIC KIDNEY DISEASE, STAGE 4 (SEVERE) Status: Chronic Priority: Medium Current Visit: Yes Problem Details: Creatinine elevated but stable (11) Diabetes mellitus type 2 in obese SNOMED Code(s): 14294882 ICD Code: E11.69 - TYPE 2 DIABETES MELLITUS WITH OTHER SPECIFIED COMPLICATION; E66.9 - OBESITY, UNSPECIFIED Status: Chronic Priority: Low Current Visit: Yes Problem Details: A1c 7.7 Blood sugars have been stable. Continue daily BID accuchecks (12) Hyperlipidemia SNOMED Code(s): 44450910 ICD Code: E78.5 - HYPERLIPIDEMIA, UNSPECIFIED Status: Chronic Priority: Low Current Visit: Yes Problem Details: continue home medication Qualifiers: Hyperlipidemia type: unspecified Qualified Code(s): E78.5 - Hyperlipidemia, unspecified (13) Hypertension SNOMED Code(s): 97648027 ICD Code: I10 - ESSENTIAL (PRIMARY) HYPERTENSION Status: Chronic Priority: Low Current Visit: Yes Problem Details: Overall stable during stay. Qualifiers: Hypertension type: primary hypertension Qualified Code(s): I10 - Essential (primary) hypertension (14) Multiple myeloma SNOMED Code(s): 098616380 ICD Code: C90.00 - MULTIPLE MYELOMA NOT HAVING ACHIEVED REMISSION Status: Chronic Priority: Low Current Visit: Yes Problem Details: Recently diagnosed. Being followed by [facility] for this. Qualifiers: Multiple myeloma remission status: unspecified Qualified Code(s): C90.00 - Multiple myeloma not having achieved remission (15) Obesity (BMI 30-39.9) SNOMED Code(s): 354256574, 348699809 ICD Code: E66.9 - OBESITY, UNSPECIFIED Status: Chronic Priority: Low Current Visit: No Problem Details: Diet/lifestyle modifications reviewed with patient. May benefit from referral to aircraft refueller when discharged from swing bed. (16) GERD (gastroesophageal reflux disease) SNOMED Code(s): 073035047 ICD Code: K21.9 - GASTRO-ESOPHAGEAL REFLUX DISEASE WITHOUT ESOPHAGITIS Status: Chronic Priority: Low Current Visit: Yes Problem Details: Stable per history. Continue home medication Qualifiers: Esophagitis presence: esophagitis presence not specified Qualified Code(s): K21.9 - Gastro-esophageal reflux disease without esophagitis (17) Chronic diastolic (congestive) heart failure SNOMED Code(s): 149515830, 090437608 ICD Code: I50.32 - CHRONIC DIASTOLIC (CONGESTIVE) HEART FAILURE Status: Chronic Priority: Low Current Visit: Yes Problem Details: Stable per history, continue home medication. Problem List Initiated/Reviewed/Updated: Yes Orders Last 24hrs: Active Orders 24 hr Category Date Time Status Patient Status [ADT] Routine ADT 02/26/21 17:09 Ordered Height and Weight [RC] UPON Care 02/26/21 18:06 Ordered May Shower [RC] ASDIRECTED Care 02/26/21 18:06 Ordered Oxygen Therapy [RC] PRN Care 02/26/21 17:09 Ordered Pulse Oximetry [RC] PRN Care 02/26/21 18:07 Ordered Up With Assistance [RC] ASDIRECTED Care 02/26/21 18:06 Ordered VTE/DVT Education [RC] PER UNIT ROUTINE Care 02/26/21 17:09 Ordered Vital Signs [RC] Q8HR Care 02/26/21 17:09 Ordered Consult to Case Management/Lie Detector Operator [CONS] Cons 02/26/21 18:06 Ordered Routine OT Evaluation and Treatment [CONS] Routine Cons 02/26/21 18:06 Ordered PT Evaluation and Treatment [CONS] Routine Cons 02/26/21 18:06 Ordered Mechanical Soft Diet [DIET] Diet 02/26/21 Dinner Ordered Acetaminophen [Tylenol Extra Strength] Med 02/27/21 08:00 Ordered 1,000 mg PO TID Acyclovir [Acyclovir] Med 02/27/21 08:00 Ordered 1 tab PO BID Calcium Carbonate [Calcium Carbonate] Med 02/26/21 18:09 Ordered 1,000 mg PO Q4H PRN Carbidopa/Levodopa [Carbidopa-Levo ER 25-100] Med 02/27/21 08:00 Ordered 1 tab PO BID Cholecalciferol (Vitamin D3) [Vitamin D3] Med 02/27/21 08:00 Ordered 1,000 unit PO DAILY Ciprofloxacin [Ciprofloxacin HCl] Med 02/27/21 17:00 Ordered 1 tab PO DAILY@1700 Docusate Sodium/Sennosides [Senna Plus] Med 02/27/21 08:00 Ordered 2 each PO BID Finasteride [Proscar] Med 02/27/21 08:00 Ordered 5 mg PO DAILY Furosemide [Lasix] Med 02/27/21 08:00 Ordered 60 mg PO DAILY Melatonin Med 02/26/21 18:09 Ordered 3 mg PO BEDTIME PRN Metoprolol Tartrate [Lopressor] Med 02/27/21 08:00 Ordered 50 mg PO BID Montelukast [Singulair] Med 02/26/21 18:15 Ordered 10 mg PO ASDIRECTED Naloxone [Narcan] Med 02/26/21 18:09 Ordered 0.2 mg IM ASDIRECTED PRN Naloxone [Narcan] Med 02/26/21 18:09 Ordered 0.4 mg IM ASDIRECTED PRN Omeprazole [Omeprazole] Med 02/27/21 08:00 Ordered 1 cap PO DAILY Tamsulosin [Flomax] Med 02/27/21 08:00 Ordered 0.4 mg PO DAILY Vitamin B Complex Med 02/27/21 08:00 Ordered 1 each PO DAILY atorvaSTATin [Lipitor] Med 02/26/21 20:00 Ordered 10 mg PO BEDTIME oxyCODONE Med 02/26/21 18:09 Ordered 5 mg PO Q6HR PRN polyethylene glycoL 3350 [MiraLAX] Med 02/26/21 18:09 Ordered 1 pkt PO DAILY PRN traZODone Med 02/26/21 20:00 Ordered 25 mg PO BEDTIME Resuscitation Status Routine Resus Stat 02/26/21 17:09 Ordered Medication Orders Acetaminophen (Acetaminophen 500 Mg Tab) 1,000 mg PO TID TOSIN Atorvastatin Calcium (Atorvastatin 10 Mg Tab) 10 mg PO BEDTIME TOSIN Finasteride (Finasteride 5 Mg Tab) 5 mg PO DAILY TOSIN Furosemide (Furosemide 20 Mg Tab) 60 mg PO DAILY TOSIN Melatonin (Melatonin 3 Mg Tab) 3 mg PO BEDTIME PRN PRN Reason: Insomnia Metoprolol Tartrate (Metoprolol Tartrate 50 Mg Tab) 50 mg PO BID TOSIN Montelukast Sodium (Montelukast 10 Mg Tab) 10 mg PO ASDIRECTED TOSIN Naloxone HCl (Naloxone 0.4 Mg/Ml Sdv) 0.2 mg IM ASDIRECTED PRN PRN Reason: Other Naloxone HCl (Naloxone 0.4 Mg/Ml Sdv) 0.4 mg IM ASDIRECTED PRN PRN Reason: Other Non-Formulary Medication (Acyclovir [Acyclovir]) 1 tab PO BID TOSIN Non-Formulary Medication (Calcium Carbonate [Calcium Carbonate]) 1,000 mg PO Q4H PRN PRN Reason: Heartburn Non-Formulary Medication (Carbidopa/Levodopa [Carbidopa-Levo Er 25-100]) 1 tab PO BID TOSIN Non-Formulary Medication (Cholecalciferol (Vitamin D3) [Vitamin D3]) 1,000 unit PO DAILY TOSIN Non-Formulary Medication (Ciprofloxacin [Ciprofloxacin Hcl]) 1 tab PO DAILY@170 0 TOSIN Non-Formulary Medication (Omeprazole [Omeprazole]) 1 cap PO DAILY TOSIN Oxycodone HCl (Oxycodone 5 Mg Tab) 5 mg PO Q6HR PRN PRN Reason: Moderate Pain Polyethylene Glycol (Polyethylene Glycol 3350 Powder 17 Gm Packet) gm PO DAILY PRN PRN Reason: Constipation Senna/Docusate Sodium (Docusate Sodium/Sennosides 50-8.6 Mg Tab) tab PO BID TOSIN Tamsulosin HCl (Tamsulosin 0.4 Mg Cap.Er) 0.4 mg PO DAILY TOSIN Trazodone HCl (Trazodone 50 Mg Tab) 25 mg PO BEDTIME TOSIN Vitamin B Complex (Vitamin B Complex Tab) 1 each PO DAILY TOSIN Assessment/Plan Comment:: as above. There are concerns that patient will not be able to return to level of physical ability to be able to return to his home where he lives alone. Patient is not interested in us contacting any family members to get them to assist him. Concern is compounded by observation of frequent mild confusion. There is concern for patient's safety in being able to return home and may need snf placement. Case management is involved. - Mortality Measure Prognosis:: Good
[2021-02-26] MEDS: traZODone 50 MG Tab PO SCH (19:57)
[2021-02-26] MEDS: atorvaSTATin 10 MG Tab PO SCH (19:57)
[2021-02-27] MEDS: oxyCODONE 5 MG Tab PO PRN (01:17)
[2021-02-27] MEDS: Finasteride 5 MG Tab PO SCH (07:35)
[2021-02-27] MEDS: Apixaban 2.5 MG Tab PO SCH ×2 (07:35→17:27)
[2021-02-27] MEDS: Acyclovir 200 MG Cap PO SCH ×2 (07:35→17:28)
[2021-02-27] MEDS: Metoprolol Tartrate 50 MG Tab PO SCH ×2 (07:36→17:28)
[2021-02-27] MEDS: Omeprazole 20 MG Cap.CR PO SCH (07:37)
[2021-02-27] MEDS: Vitamin B Complex Tab PO SCH (07:37)
[2021-02-27] MEDS: Tamsulosin 0.4 MG Cap.ER PO SCH (07:37)
[2021-02-27] MEDS: Cholecalciferol (Vitamin D3) 25 MCG Tab PO SCH (07:38)
[2021-02-27] MEDS: Furosemide 20 MG Tab PO SCH (07:38)
[2021-02-27] MEDS ORDERED: Acetaminophen 500 MG Tab PO SCH (08:00)
[2021-02-27] MEDS: Carbidopa/Levodopa 25-100 MG Tab PO SCH ×2 (08:22→17:28)
--- NOTE | 2021-02-27 10:46 | PCM.SN.2 ---
- Free Text/Narrative Note: Urine culture of her [place] microbiology shows Enterobacter cloacae a complex which is sensitive to ceftriaxone ciprofloxacin. We will switch him off the Cipro and changed to cefuroxime Mexitil 250 mg p.o. twice daily 7 days due to his already known presence of confusion any other risk of fluoroquinolones in elderly population.
[2021-02-27] MEDS: Cefuroxime 250 MG Tab PO SCH ×2 (12:00→17:28)
[2021-02-27] MEDS: Acetaminophen 500 MG Tab PO SCH ×2 (13:32→19:44)
[2021-02-27] MEDS ORDERED: Ciprofloxacin 500 MG Tab PO SCH (17:00)
[2021-02-27] MEDS: atorvaSTATin 10 MG Tab PO SCH (19:45)
[2021-02-27] MEDS: traZODone 50 MG Tab PO SCH (19:45)
[2021-02-28] MEDS: Cefuroxime 250 MG Tab PO SCH ×2 (08:48→17:25)
[2021-02-28] MEDS: Finasteride 5 MG Tab PO SCH (08:48)
[2021-02-28] MEDS: Vitamin B Complex Tab PO SCH (08:49)
[2021-02-28] MEDS: Acyclovir 200 MG Cap PO SCH ×2 (08:49→17:24)
[2021-02-28] MEDS: Omeprazole 20 MG Cap.CR PO SCH (08:49)
[2021-02-28] MEDS: Furosemide 20 MG Tab PO SCH (08:49)
[2021-02-28] MEDS: Carbidopa/Levodopa 25-100 MG Tab PO SCH ×2 (08:49→17:25)
[2021-02-28] MEDS: Tamsulosin 0.4 MG Cap.ER PO SCH (08:50)
[2021-02-28] MEDS: Acetaminophen 500 MG Tab PO SCH ×3 (08:50→20:52)
[2021-02-28] MEDS: Apixaban 2.5 MG Tab PO SCH ×2 (08:50→17:25)
[2021-02-28] MEDS: Cholecalciferol (Vitamin D3) 25 MCG Tab PO SCH (08:51)
[2021-02-28] MEDS: Metoprolol Tartrate 50 MG Tab PO SCH ×2 (08:51→17:19)
[2021-02-28] MEDS: traZODone 50 MG Tab PO SCH (20:51)
[2021-02-28] MEDS: atorvaSTATin 10 MG Tab PO SCH (20:52)
[2021-03-01] MEDS: oxyCODONE 5 MG Tab PO PRN ×2 (02:20→09:41)
[2021-03-01] MEDS: Acetaminophen 325 MG Tab PO PRN (02:20)
[2021-03-01 07:59] LABS: ANION GAP 17.2 meq/L (7-15)
[2021-03-01] MEDS: Acyclovir 200 MG Cap PO SCH ×2 (08:47→17:39)
[2021-03-01] MEDS: Cefuroxime 250 MG Tab PO SCH ×2 (08:47→17:39)
[2021-03-01] MEDS: Acetaminophen 500 MG Tab PO SCH ×3 (08:48→19:43)
[2021-03-01] MEDS: Omeprazole 20 MG Cap.CR PO SCH (08:48)
[2021-03-01] MEDS: Carbidopa/Levodopa 25-100 MG Tab PO SCH ×2 (08:48→17:39)
[2021-03-01] MEDS: Tamsulosin 0.4 MG Cap.ER PO SCH (08:48)
[2021-03-01] MEDS: Metoprolol Tartrate 50 MG Tab PO SCH ×2 (08:48→17:39)
[2021-03-01] MEDS: Finasteride 5 MG Tab PO SCH (08:48)
[2021-03-01] MEDS: Cholecalciferol (Vitamin D3) 25 MCG Tab PO SCH (08:48)
[2021-03-01] MEDS: Vitamin B Complex Tab PO SCH (08:48)
[2021-03-01] MEDS: Apixaban 2.5 MG Tab PO SCH ×2 (08:48→17:39)
[2021-03-01] MEDS: Furosemide 20 MG Tab PO SCH (08:48)
[2021-03-01] MEDS: traZODone 50 MG Tab PO SCH (19:44)
[2021-03-01] MEDS: atorvaSTATin 10 MG Tab PO SCH (19:44)
[2021-03-02] MEDS: Omeprazole 20 MG Cap.CR PO SCH (08:25)
[2021-03-02] MEDS: Acetaminophen 500 MG Tab PO SCH ×3 (08:36→19:16)
[2021-03-02] MEDS: oxyCODONE 5 MG Tab PO PRN (08:37)
[2021-03-02] MEDS: Cholecalciferol (Vitamin D3) 25 MCG Tab PO SCH (08:38)
[2021-03-02] MEDS: Vitamin B Complex Tab PO SCH (08:38)
[2021-03-02] MEDS: Cefuroxime 250 MG Tab PO SCH ×2 (08:39→17:22)
[2021-03-02] MEDS: Tamsulosin 0.4 MG Cap.ER PO SCH (08:39)
[2021-03-02] MEDS: Acyclovir 200 MG Cap PO SCH ×2 (08:39→17:21)
[2021-03-02] MEDS: Apixaban 2.5 MG Tab PO SCH ×2 (08:39→17:22)
[2021-03-02] MEDS: Furosemide 20 MG Tab PO SCH (08:39)
[2021-03-02] MEDS: Finasteride 5 MG Tab PO SCH (08:40)
[2021-03-02] MEDS: Metoprolol Tartrate 50 MG Tab PO SCH ×2 (08:41→17:21)
[2021-03-02] MEDS: Carbidopa/Levodopa 25-100 MG Tab PO SCH ×2 (08:41→17:22)
[2021-03-02] MEDS: atorvaSTATin 10 MG Tab PO SCH (19:16)
[2021-03-02] MEDS: traZODone 50 MG Tab PO SCH (20:49)
[2021-03-03] MEDS: Omeprazole 20 MG Cap.CR PO SCH (08:21)
[2021-03-03] MEDS: Acetaminophen 500 MG Tab PO SCH ×3 (08:21→19:43)
[2021-03-03] MEDS: Acyclovir 200 MG Cap PO SCH ×2 (08:21→18:42)
[2021-03-03] MEDS: Finasteride 5 MG Tab PO SCH (08:22)
[2021-03-03] MEDS: Furosemide 20 MG Tab PO SCH (08:22)
[2021-03-03] MEDS: Cholecalciferol (Vitamin D3) 25 MCG Tab PO SCH (08:22)
[2021-03-03] MEDS: Cefuroxime 250 MG Tab PO SCH ×2 (08:22→18:41)
[2021-03-03] MEDS: Carbidopa/Levodopa 25-100 MG Tab PO SCH ×2 (08:22→18:42)
[2021-03-03] MEDS: Apixaban 2.5 MG Tab PO SCH ×2 (08:22→18:41)
[2021-03-03] MEDS: Vitamin B Complex Tab PO SCH (08:22)
[2021-03-03] MEDS: Tamsulosin 0.4 MG Cap.ER PO SCH (08:22)
[2021-03-03] MEDS: Metoprolol Tartrate 50 MG Tab PO SCH ×2 (08:22→18:42)
[2021-03-03] MEDS: oxyCODONE 5 MG Tab PO PRN (08:27)
[2021-03-03] MEDS: traZODone 50 MG Tab PO SCH (19:42)
[2021-03-03] MEDS: atorvaSTATin 10 MG Tab PO SCH (19:42)
[2021-03-04] MEDS: Furosemide 20 MG Tab PO SCH (09:11)
[2021-03-04] MEDS: Vitamin B Complex Tab PO SCH (09:11)
[2021-03-04] MEDS: Acetaminophen 500 MG Tab PO SCH ×3 (09:12→20:19)
[2021-03-04] MEDS: Metoprolol Tartrate 50 MG Tab PO SCH ×2 (09:12→17:24)
[2021-03-04] MEDS: Tamsulosin 0.4 MG Cap.ER PO SCH (09:12)
[2021-03-04] MEDS: Finasteride 5 MG Tab PO SCH (09:12)
[2021-03-04] MEDS: Apixaban 2.5 MG Tab PO SCH ×2 (09:12→17:26)
[2021-03-04] MEDS: Omeprazole 20 MG Cap.CR PO SCH (09:12)
[2021-03-04] MEDS: Acyclovir 200 MG Cap PO SCH ×2 (09:12→17:23)
[2021-03-04] MEDS: Cyclobenzaprine 10 MG Tab PO PRN (09:12)
[2021-03-04] MEDS: Cefuroxime 250 MG Tab PO SCH ×2 (09:12→17:26)
[2021-03-04] MEDS: Carbidopa/Levodopa 25-100 MG Tab PO SCH ×2 (09:13→17:26)
[2021-03-04] MEDS: Cholecalciferol (Vitamin D3) 25 MCG Tab PO SCH (09:13)
[2021-03-04] MEDS: atorvaSTATin 10 MG Tab PO SCH (20:18)
[2021-03-04] MEDS: traZODone 50 MG Tab PO SCH (20:18)
[2021-03-04] MEDS: Melatonin 3 MG Tab PO PRN (20:19)
[2021-03-05] MEDS: Cyclobenzaprine 10 MG Tab PO PRN ×3 (00:20→19:58)
[2021-03-05] MEDS: Finasteride 5 MG Tab PO SCH (08:18)
[2021-03-05] MEDS: Metoprolol Tartrate 50 MG Tab PO SCH ×2 (08:18→17:27)
[2021-03-05] MEDS: Cholecalciferol (Vitamin D3) 25 MCG Tab PO SCH (08:18)
[2021-03-05] MEDS: Acyclovir 200 MG Cap PO SCH ×2 (08:18→17:26)
[2021-03-05] MEDS: Furosemide 20 MG Tab PO SCH (08:19)
[2021-03-05] MEDS: Apixaban 2.5 MG Tab PO SCH ×2 (08:19→17:27)
[2021-03-05] MEDS: Carbidopa/Levodopa 25-100 MG Tab PO SCH ×2 (08:19→17:27)
[2021-03-05] MEDS: Cefuroxime 250 MG Tab PO SCH ×2 (08:19→17:27)
[2021-03-05] MEDS: Omeprazole 20 MG Cap.CR PO SCH (08:20)
[2021-03-05] MEDS: Tamsulosin 0.4 MG Cap.ER PO SCH (08:20)
[2021-03-05] MEDS: Vitamin B Complex Tab PO SCH (08:20)
[2021-03-05] MEDS: Acetaminophen 500 MG Tab PO SCH ×3 (08:21→19:55)
[2021-03-05] MEDS: Acetaminophen 325 MG Tab PO PRN (11:33)
[2021-03-05] MEDS: traZODone 50 MG Tab PO SCH (19:55)
[2021-03-05] MEDS: atorvaSTATin 10 MG Tab PO SCH (19:56)
[2021-03-06 07:59] LABS: ANION GAP 11.5 meq/L (7-15)
[2021-03-06] MEDS: Furosemide 20 MG Tab PO SCH (08:02)
[2021-03-06] MEDS: Cefuroxime 250 MG Tab PO SCH (08:03)
[2021-03-06] MEDS: Acyclovir 200 MG Cap PO SCH ×2 (08:03→17:23)
[2021-03-06] MEDS: Cholecalciferol (Vitamin D3) 25 MCG Tab PO SCH (08:03)
[2021-03-06] MEDS: Finasteride 5 MG Tab PO SCH (08:03)
[2021-03-06] MEDS: Apixaban 2.5 MG Tab PO SCH ×2 (08:04→17:24)
[2021-03-06] MEDS: Metoprolol Tartrate 50 MG Tab PO SCH ×2 (08:04→17:24)
[2021-03-06] MEDS: Carbidopa/Levodopa 25-100 MG Tab PO SCH ×2 (08:04→17:24)
[2021-03-06] MEDS: Tamsulosin 0.4 MG Cap.ER PO SCH (08:04)
[2021-03-06] MEDS: Omeprazole 20 MG Cap.CR PO SCH (08:04)
[2021-03-06] MEDS: Acetaminophen 500 MG Tab PO SCH ×3 (08:04→20:18)
[2021-03-06] MEDS: Vitamin B Complex Tab PO SCH (08:04)
[2021-03-06] MEDS: Cyclobenzaprine 10 MG Tab PO PRN ×2 (13:03→23:37)
[2021-03-06] MEDS: Hydrocortisone 1% Crm 30 GM Tube TOP PRN (15:16)
[2021-03-06] MEDS: atorvaSTATin 10 MG Tab PO SCH (20:19)
[2021-03-06] MEDS: traZODone 50 MG Tab PO SCH (20:19)
[2021-03-07] MEDS: Furosemide 20 MG Tab PO SCH (08:13)
[2021-03-07] MEDS: Tamsulosin 0.4 MG Cap.ER PO SCH (08:14)
[2021-03-07] MEDS: Finasteride 5 MG Tab PO SCH (08:14)
[2021-03-07] MEDS: Apixaban 2.5 MG Tab PO SCH ×2 (08:15→17:20)
[2021-03-07] MEDS: Cholecalciferol (Vitamin D3) 25 MCG Tab PO SCH (08:15)
[2021-03-07] MEDS: Acetaminophen 500 MG Tab PO SCH ×3 (08:15→19:14)
[2021-03-07] MEDS: Vitamin B Complex Tab PO SCH (08:16)
[2021-03-07] MEDS: Metoprolol Tartrate 50 MG Tab PO SCH ×2 (08:16→17:21)
[2021-03-07] MEDS: Acyclovir 200 MG Cap PO SCH ×2 (08:17→17:21)
[2021-03-07] MEDS: Omeprazole 20 MG Cap.CR PO SCH (08:17)
[2021-03-07] MEDS: Carbidopa/Levodopa 25-100 MG Tab PO SCH ×2 (08:18→17:20)
[2021-03-07] MEDS: traZODone 50 MG Tab PO SCH (19:15)
[2021-03-07] MEDS: atorvaSTATin 10 MG Tab PO SCH (19:15)
[2021-03-08] MEDS: Acetaminophen 325 MG Tab PO PRN (06:05)
[2021-03-08] MEDS: Furosemide 20 MG Tab PO SCH (08:49)
[2021-03-08] MEDS: Metoprolol Tartrate 50 MG Tab PO SCH ×2 (08:50→17:04)
[2021-03-08] MEDS: Acyclovir 200 MG Cap PO SCH ×2 (08:50→17:05)
[2021-03-08] MEDS: Cholecalciferol (Vitamin D3) 25 MCG Tab PO SCH (08:50)
[2021-03-08] MEDS: Vitamin B Complex Tab PO SCH (08:50)
[2021-03-08] MEDS: Apixaban 2.5 MG Tab PO SCH ×2 (08:50→17:04)
[2021-03-08] MEDS: Finasteride 5 MG Tab PO SCH (08:51)
[2021-03-08] MEDS: Acetaminophen 500 MG Tab PO SCH ×3 (08:51→19:10)
[2021-03-08] MEDS: Tamsulosin 0.4 MG Cap.ER PO SCH (08:51)
[2021-03-08] MEDS: Omeprazole 20 MG Cap.CR PO SCH (08:51)
[2021-03-08] MEDS: Carbidopa/Levodopa 25-100 MG Tab PO SCH ×2 (08:51→17:04)
[2021-03-08] MEDS: atorvaSTATin 10 MG Tab PO SCH (19:10)
[2021-03-08] MEDS: traZODone 50 MG Tab PO SCH (19:10)
[2021-03-09] MEDS: Apixaban 2.5 MG Tab PO SCH ×2 (07:56→17:29)
[2021-03-09] MEDS: Omeprazole 20 MG Cap.CR PO SCH (07:57)
[2021-03-09] MEDS: Acetaminophen 500 MG Tab PO SCH ×3 (07:57→19:41)
[2021-03-09] MEDS: Finasteride 5 MG Tab PO SCH (07:57)
[2021-03-09] MEDS: Metoprolol Tartrate 50 MG Tab PO SCH ×2 (07:58→17:29)
[2021-03-09] MEDS: Carbidopa/Levodopa 25-100 MG Tab PO SCH ×2 (07:58→17:29)
[2021-03-09] MEDS: Vitamin B Complex Tab PO SCH (07:58)
[2021-03-09] MEDS: Furosemide 20 MG Tab PO SCH (07:58)
[2021-03-09] MEDS: Tamsulosin 0.4 MG Cap.ER PO SCH (07:58)
[2021-03-09] MEDS: Cholecalciferol (Vitamin D3) 25 MCG Tab PO SCH (07:59)
[2021-03-09] MEDS: Acyclovir 200 MG Cap PO SCH ×2 (07:59→17:29)
[2021-03-09] MEDS: atorvaSTATin 10 MG Tab PO SCH (19:42)
[2021-03-09] MEDS: traZODone 50 MG Tab PO SCH (19:42)
[2021-03-10] MEDS: Cyclobenzaprine 10 MG Tab PO PRN (04:50)
[2021-03-10] MEDS: Acetaminophen 325 MG Tab PO PRN (04:52)
[2021-03-10] MEDS: Acetaminophen 500 MG Tab PO SCH ×3 (08:44→19:32)
[2021-03-10] MEDS: Omeprazole 20 MG Cap.CR PO SCH (08:45)
[2021-03-10] MEDS: Apixaban 2.5 MG Tab PO SCH ×2 (08:45→17:28)
[2021-03-10] MEDS: Acyclovir 200 MG Cap PO SCH ×2 (08:45→17:29)
[2021-03-10] MEDS: Tamsulosin 0.4 MG Cap.ER PO SCH (08:46)
[2021-03-10] MEDS: Cholecalciferol (Vitamin D3) 25 MCG Tab PO SCH (08:46)
[2021-03-10] MEDS: Vitamin B Complex Tab PO SCH (08:46)
[2021-03-10] MEDS: Carbidopa/Levodopa 25-100 MG Tab PO SCH ×2 (08:49→17:29)
[2021-03-10] MEDS: Furosemide 20 MG Tab PO SCH (08:49)
[2021-03-10] MEDS: Finasteride 5 MG Tab PO SCH (08:49)
[2021-03-10] MEDS: Metoprolol Tartrate 50 MG Tab PO SCH ×2 (08:49→17:27)
[2021-03-10] MEDS: Oxybutynin 5 MG Tab PO SCH (17:29)
[2021-03-10] MEDS: Aspirin 81 MG Tab.Chew PO SCH (19:20)
[2021-03-10] MEDS: traZODone 50 MG Tab PO SCH (19:31)
[2021-03-10] MEDS: atorvaSTATin 10 MG Tab PO SCH (19:31)
[2021-03-11] MEDS: Cyclobenzaprine 10 MG Tab PO PRN (05:19)
[2021-03-11] MEDS: Acetaminophen 325 MG Tab PO PRN (05:20)
[2021-03-11] MEDS: Vitamin B Complex Tab PO SCH (08:12)
[2021-03-11] MEDS: Carbidopa/Levodopa 25-100 MG Tab PO SCH ×2 (08:12→17:24)
[2021-03-11] MEDS: Furosemide 20 MG Tab PO SCH (08:12)
[2021-03-11] MEDS: Apixaban 2.5 MG Tab PO SCH ×2 (08:12→17:24)
[2021-03-11] MEDS: Finasteride 5 MG Tab PO SCH (08:12)
[2021-03-11] MEDS: Acyclovir 200 MG Cap PO SCH ×2 (08:12→17:24)
[2021-03-11] MEDS: Omeprazole 20 MG Cap.CR PO SCH (08:13)
[2021-03-11] MEDS: Oxybutynin 5 MG Tab PO SCH ×3 (08:13→17:25)
[2021-03-11] MEDS: Acetaminophen 500 MG Tab PO SCH ×3 (08:13→19:31)
[2021-03-11] MEDS: Tamsulosin 0.4 MG Cap.ER PO SCH (08:13)
[2021-03-11] MEDS: Cholecalciferol (Vitamin D3) 25 MCG Tab PO SCH (08:14)
[2021-03-11] MEDS: Metoprolol Tartrate 50 MG Tab PO SCH ×2 (08:14→17:24)
[2021-03-11] MEDS: atorvaSTATin 10 MG Tab PO SCH (19:31)
[2021-03-11] MEDS: Aspirin 81 MG Tab.Chew PO SCH (19:32)
[2021-03-11] MEDS: traZODone 50 MG Tab PO SCH (19:32)
[2021-03-12] MEDS: Cyclobenzaprine 10 MG Tab PO PRN (00:38)
[2021-03-12] MEDS: Acetaminophen 325 MG Tab PO PRN (00:38)
[2021-03-12] MEDS: Metoprolol Tartrate 50 MG Tab PO SCH ×2 (08:25→18:06)
[2021-03-12] MEDS: Carbidopa/Levodopa 25-100 MG Tab PO SCH ×2 (08:25→18:06)
[2021-03-12] MEDS: Apixaban 2.5 MG Tab PO SCH ×2 (08:26→18:06)
[2021-03-12] MEDS: Acyclovir 200 MG Cap PO SCH ×2 (08:26→18:06)
[2021-03-12] MEDS: Tamsulosin 0.4 MG Cap.ER PO SCH (08:26)
[2021-03-12] MEDS: Finasteride 5 MG Tab PO SCH (08:27)
[2021-03-12] MEDS: Cholecalciferol (Vitamin D3) 25 MCG Tab PO SCH (08:27)
[2021-03-12] MEDS: Acetaminophen 500 MG Tab PO SCH ×3 (08:27→19:36)
[2021-03-12] MEDS: Omeprazole 20 MG Cap.CR PO SCH (08:27)
[2021-03-12] MEDS: Oxybutynin 5 MG Tab PO SCH ×3 (08:28→18:11)
[2021-03-12] MEDS: Vitamin B Complex Tab PO SCH (08:28)
[2021-03-12] MEDS: Furosemide 20 MG Tab PO SCH (08:29)
[2021-03-12] MEDS: traZODone 50 MG Tab PO SCH (19:35)
[2021-03-12] MEDS: atorvaSTATin 10 MG Tab PO SCH (19:35)
[2021-03-12] MEDS: Aspirin 81 MG Tab.Chew PO SCH (19:35)
[2021-03-13 08:06] LABS: ANION GAP 10.4 meq/L (7-15)
[2021-03-13] MEDS: Oxybutynin 5 MG Tab PO SCH ×3 (08:06→17:00)
[2021-03-13] MEDS: Acetaminophen 500 MG Tab PO SCH ×3 (08:07→20:10)
[2021-03-13] MEDS: Vitamin B Complex Tab PO SCH (08:08)
[2021-03-13] MEDS: Metoprolol Tartrate 50 MG Tab PO SCH ×2 (08:08→17:01)
[2021-03-13] MEDS: Finasteride 5 MG Tab PO SCH (08:08)
[2021-03-13] MEDS: Apixaban 2.5 MG Tab PO SCH ×2 (08:08→17:01)
[2021-03-13] MEDS: Furosemide 20 MG Tab PO SCH (08:09)
[2021-03-13] MEDS: Acyclovir 200 MG Cap PO SCH ×2 (08:09→17:00)
[2021-03-13] MEDS: Omeprazole 20 MG Cap.CR PO SCH (08:10)
[2021-03-13] MEDS: Cholecalciferol (Vitamin D3) 25 MCG Tab PO SCH (08:10)
[2021-03-13] MEDS: Tamsulosin 0.4 MG Cap.ER PO SCH (08:10)
[2021-03-13] MEDS: Carbidopa/Levodopa 25-100 MG Tab PO SCH ×2 (08:11→17:01)
--- NOTE | 2021-03-13 18:43 | PCM.SN.2 ---
- Free Text/Narrative Note: Patient's catheter had to be changed after previous catheter became plugged and inoperable. Hematuria started shortly prior to this. Approx 1000 ml urine drained from bladder. Patient more comfortable. Urine sent for culture. Patient afebrile. No abdominal pain/flank pain. Culture returned today and positive for Citrobacter Werkmanii. Susceptible to Septra DS. Will initiated coverage. Will have Turpin changed again tomorrow. Recheck urine in 4 days.
[2021-03-13] MEDS ORDERED: Sulfamethoxazole/Trimethoprim 800-160 MG Tab PO SCH (20:00)
[2021-03-13] MEDS: atorvaSTATin 10 MG Tab PO SCH (20:11)
[2021-03-13] MEDS: Aspirin 81 MG Tab.Chew PO SCH (20:11)
[2021-03-13] MEDS: traZODone 50 MG Tab PO SCH (20:11)
[2021-03-13] MEDS: Sulfamethoxazole/Trimethoprim 800-160 MG Tab PO SCH (20:12)
[2021-03-14] MEDS ORDERED: Sulfamethoxazole/Trimethoprim 800-160 MG Tab PO SCH
[2021-03-14] MEDS: Acetaminophen 325 MG Tab PO PRN (03:45)
[2021-03-14] MEDS: Furosemide 20 MG Tab PO SCH (07:43)
[2021-03-14] MEDS: Vitamin B Complex Tab PO SCH (07:43)
[2021-03-14] MEDS: Sulfamethoxazole/Trimethoprim 800-160 MG Tab PO SCH ×2 (07:44→19:38)
[2021-03-14] MEDS: Apixaban 2.5 MG Tab PO SCH ×2 (07:44→17:42)
[2021-03-14] MEDS: Omeprazole 20 MG Cap.CR PO SCH (07:44)
[2021-03-14] MEDS: Acyclovir 200 MG Cap PO SCH ×2 (07:44→17:42)
[2021-03-14] MEDS: Oxybutynin 5 MG Tab PO SCH ×3 (07:45→17:41)
[2021-03-14] MEDS: Carbidopa/Levodopa 25-100 MG Tab PO SCH ×2 (07:46→17:45)
[2021-03-14] MEDS: Tamsulosin 0.4 MG Cap.ER PO SCH (07:46)
[2021-03-14] MEDS: Finasteride 5 MG Tab PO SCH (07:46)
[2021-03-14] MEDS: Acetaminophen 500 MG Tab PO SCH ×3 (07:47→19:37)
[2021-03-14] MEDS: Cholecalciferol (Vitamin D3) 25 MCG Tab PO SCH (07:47)
[2021-03-14] MEDS: Metoprolol Tartrate 50 MG Tab PO SCH ×2 (07:49→17:45)
[2021-03-14] MEDS: atorvaSTATin 10 MG Tab PO SCH (19:37)
[2021-03-14] MEDS: Aspirin 81 MG Tab.Chew PO SCH (19:37)
[2021-03-14] MEDS: traZODone 50 MG Tab PO SCH (19:38)
[2021-03-14] MEDS: Melatonin 3 MG Tab PO PRN (19:38)
[2021-03-15] MEDS: Acetaminophen 325 MG Tab PO PRN (02:27)
[2021-03-15] MEDS: Cyclobenzaprine 10 MG Tab PO PRN (02:27)
[2021-03-15] MEDS: Vitamin B Complex Tab PO SCH (07:45)
[2021-03-15] MEDS: Omeprazole 20 MG Cap.CR PO SCH (07:45)
[2021-03-15] MEDS: Sulfamethoxazole/Trimethoprim 800-160 MG Tab PO SCH ×2 (07:45→19:17)
[2021-03-15] MEDS: Carbidopa/Levodopa 25-100 MG Tab PO SCH ×2 (07:46→18:16)
[2021-03-15] MEDS: Oxybutynin 5 MG Tab PO SCH ×3 (07:46→18:17)
[2021-03-15] MEDS: Furosemide 20 MG Tab PO SCH (07:46)
[2021-03-15] MEDS: Tamsulosin 0.4 MG Cap.ER PO SCH (07:47)
[2021-03-15] MEDS: Metoprolol Tartrate 50 MG Tab PO SCH ×2 (07:48→18:14)
[2021-03-15] MEDS: Acetaminophen 500 MG Tab PO SCH ×3 (07:48→19:17)
[2021-03-15] MEDS: Acyclovir 200 MG Cap PO SCH ×2 (07:49→18:16)
[2021-03-15] MEDS: Cholecalciferol (Vitamin D3) 25 MCG Tab PO SCH (07:49)
[2021-03-15] MEDS: Finasteride 5 MG Tab PO SCH (07:50)
[2021-03-15] MEDS ORDERED: Aspirin 325 MG Tab.EC PO SCH (08:00)
[2021-03-15] MEDS: atorvaSTATin 10 MG Tab PO SCH (19:17)
[2021-03-15] MEDS: Aspirin 81 MG Tab.Chew PO SCH (19:17)
[2021-03-15] MEDS: traZODone 50 MG Tab PO SCH (19:17)
[2021-03-15] MEDS: Melatonin 3 MG Tab PO PRN (19:17)
[2021-03-16] MEDS: Cholecalciferol (Vitamin D3) 25 MCG Tab PO SCH (07:56)
[2021-03-16] MEDS: Furosemide 20 MG Tab PO SCH (07:56)
[2021-03-16] MEDS: Vitamin B Complex Tab PO SCH (07:56)
[2021-03-16] MEDS: Tamsulosin 0.4 MG Cap.ER PO SCH (07:56)
[2021-03-16] MEDS: Carbidopa/Levodopa 25-100 MG Tab PO SCH ×2 (07:56→17:07)
[2021-03-16] MEDS: Oxybutynin 5 MG Tab PO SCH ×3 (07:56→17:07)
[2021-03-16] MEDS: Finasteride 5 MG Tab PO SCH (07:56)
[2021-03-16] MEDS: Acetaminophen 500 MG Tab PO SCH ×3 (07:57→19:14)
[2021-03-16] MEDS: Acyclovir 200 MG Cap PO SCH ×2 (07:57→17:06)
[2021-03-16] MEDS: Omeprazole 20 MG Cap.CR PO SCH (07:57)
[2021-03-16] MEDS: Metoprolol Tartrate 50 MG Tab PO SCH ×2 (07:57→17:06)
[2021-03-16] MEDS: Sulfamethoxazole/Trimethoprim 800-160 MG Tab PO SCH ×2 (07:57→19:15)
[2021-03-16] MEDS: Acetaminophen 325 MG Tab PO PRN (17:06)
[2021-03-16] MEDS: atorvaSTATin 10 MG Tab PO SCH (19:14)
[2021-03-16] MEDS: Aspirin 81 MG Tab.Chew PO SCH (19:15)
[2021-03-16] MEDS: traZODone 50 MG Tab PO SCH (19:15)
[2021-03-16] MEDS: Melatonin 3 MG Tab PO PRN (22:15)
[2021-03-17] MEDS: Cyclobenzaprine 10 MG Tab PO PRN ×2 (00:44→16:13)
[2021-03-17] MEDS: Acyclovir 200 MG Cap PO SCH ×2 (08:44→17:56)
[2021-03-17] MEDS: Tamsulosin 0.4 MG Cap.ER PO SCH (08:44)
[2021-03-17] MEDS: Acetaminophen 500 MG Tab PO SCH ×3 (08:45→19:24)
[2021-03-17] MEDS: Metoprolol Tartrate 50 MG Tab PO SCH ×2 (08:45→17:56)
[2021-03-17] MEDS: Vitamin B Complex Tab PO SCH (08:46)
[2021-03-17] MEDS: Omeprazole 20 MG Cap.CR PO SCH (08:46)
[2021-03-17] MEDS: Sulfamethoxazole/Trimethoprim 800-160 MG Tab PO SCH ×2 (08:46→19:26)
[2021-03-17] MEDS: Cholecalciferol (Vitamin D3) 25 MCG Tab PO SCH (08:47)
[2021-03-17] MEDS: Carbidopa/Levodopa 25-100 MG Tab PO SCH ×2 (08:47→17:56)
[2021-03-17] MEDS: Furosemide 20 MG Tab PO SCH (08:47)
[2021-03-17] MEDS: Finasteride 5 MG Tab PO SCH (08:48)
[2021-03-17] MEDS: Oxybutynin 5 MG Tab PO SCH ×3 (08:48→18:01)
[2021-03-17] MEDS: Aspirin 81 MG Tab.Chew PO SCH (19:24)
[2021-03-17] MEDS: atorvaSTATin 10 MG Tab PO SCH (19:25)
[2021-03-17] MEDS: traZODone 50 MG Tab PO SCH (19:25)
[2021-03-18] MEDS: Melatonin 3 MG Tab PO PRN ×2 (01:21→20:00)
[2021-03-18] MEDS: Cyclobenzaprine 10 MG Tab PO PRN (01:22)
[2021-03-18] MEDS: Acyclovir 200 MG Cap PO SCH ×2 (07:14→18:10)
[2021-03-18] MEDS: Furosemide 20 MG Tab PO SCH (07:14)
[2021-03-18] MEDS: Omeprazole 20 MG Cap.CR PO SCH (07:14)
[2021-03-18] MEDS: Finasteride 5 MG Tab PO SCH (07:14)
[2021-03-18] MEDS: Cholecalciferol (Vitamin D3) 25 MCG Tab PO SCH (07:15)
[2021-03-18] MEDS: Metoprolol Tartrate 50 MG Tab PO SCH ×2 (07:15→18:13)
[2021-03-18] MEDS: Tamsulosin 0.4 MG Cap.ER PO SCH (07:16)
[2021-03-18] MEDS: Acetaminophen 500 MG Tab PO SCH ×3 (07:16→20:02)
[2021-03-18] MEDS: Sulfamethoxazole/Trimethoprim 800-160 MG Tab PO SCH ×2 (07:17→20:01)
[2021-03-18] MEDS: Oxybutynin 5 MG Tab PO SCH ×3 (07:18→18:12)
[2021-03-18] MEDS: Vitamin B Complex Tab PO SCH (07:18)
[2021-03-18] MEDS: Carbidopa/Levodopa 25-100 MG Tab PO SCH ×2 (07:18→18:12)
[2021-03-18] MEDS: Bacitracin/Neomycin/Polymyxin B Oint 0.9 GM U/D Packet TOP SCH (18:13)
[2021-03-18] MEDS: atorvaSTATin 10 MG Tab PO SCH (20:00)
[2021-03-18] MEDS: Aspirin 81 MG Tab.Chew PO SCH (20:00)
[2021-03-18] MEDS: traZODone 50 MG Tab PO SCH (20:02)
[2021-03-19] MEDS: Cyclobenzaprine 10 MG Tab PO PRN ×2 (00:58→21:39)
[2021-03-19] MEDS: Acetaminophen 325 MG Tab PO PRN (00:59)
[2021-03-19] MEDS: Acetaminophen 500 MG Tab PO SCH ×3 (08:47→20:15)
[2021-03-19] MEDS: Furosemide 20 MG Tab PO SCH (08:49)
[2021-03-19] MEDS: Omeprazole 20 MG Cap.CR PO SCH (08:50)
[2021-03-19] MEDS: Acyclovir 200 MG Cap PO SCH ×2 (08:50→17:08)
[2021-03-19] MEDS: Cholecalciferol (Vitamin D3) 25 MCG Tab PO SCH (08:50)
[2021-03-19] MEDS: Finasteride 5 MG Tab PO SCH (08:51)
[2021-03-19] MEDS: Tamsulosin 0.4 MG Cap.ER PO SCH (08:51)
[2021-03-19] MEDS: Carbidopa/Levodopa 25-100 MG Tab PO SCH ×2 (08:52→17:09)
[2021-03-19] MEDS: Sulfamethoxazole/Trimethoprim 800-160 MG Tab PO SCH ×2 (08:52→20:14)
[2021-03-19] MEDS: Bacitracin/Neomycin/Polymyxin B Oint 0.9 GM U/D Packet TOP SCH ×2 (08:53→17:09)
[2021-03-19] MEDS: Oxybutynin 5 MG Tab PO SCH ×3 (08:53→17:08)
[2021-03-19] MEDS: Vitamin B Complex Tab PO SCH (08:53)
[2021-03-19] MEDS: Metoprolol Tartrate 50 MG Tab PO SCH ×2 (08:56→17:08)
[2021-03-19] MEDS: atorvaSTATin 10 MG Tab PO SCH (20:13)
[2021-03-19] MEDS: traZODone 50 MG Tab PO SCH (20:14)
[2021-03-19] MEDS: Melatonin 3 MG Tab PO PRN (20:15)
[2021-03-19] MEDS: Aspirin 81 MG Tab.Chew PO SCH (20:15)
[2021-03-20] MEDS: Cholecalciferol (Vitamin D3) 25 MCG Tab PO SCH (07:46)
[2021-03-20] MEDS: Omeprazole 20 MG Cap.CR PO SCH (07:46)
[2021-03-20] MEDS: Tamsulosin 0.4 MG Cap.ER PO SCH (07:46)
[2021-03-20] MEDS: Acyclovir 200 MG Cap PO SCH ×2 (07:47→17:22)
[2021-03-20] MEDS: Oxybutynin 5 MG Tab PO SCH ×3 (07:48→17:23)
[2021-03-20] MEDS: Metoprolol Tartrate 50 MG Tab PO SCH ×2 (07:48→17:22)
[2021-03-20] MEDS: Vitamin B Complex Tab PO SCH (07:49)
[2021-03-20] MEDS: Furosemide 20 MG Tab PO SCH (07:49)
[2021-03-20] MEDS: Finasteride 5 MG Tab PO SCH (07:49)
[2021-03-20] MEDS: Sulfamethoxazole/Trimethoprim 800-160 MG Tab PO SCH ×2 (07:49→19:35)
[2021-03-20] MEDS: Carbidopa/Levodopa 25-100 MG Tab PO SCH ×2 (07:49→17:22)
[2021-03-20] MEDS: Acetaminophen 500 MG Tab PO SCH ×3 (07:49→19:36)
[2021-03-20] MEDS: Bacitracin/Neomycin/Polymyxin B Oint 0.9 GM U/D Packet TOP SCH ×2 (07:50→17:21)
[2021-03-20 08:04] LABS: ANION GAP 10.8 meq/L (7-15)
--- NOTE | 2021-03-20 09:16 | PCM.PN ---
- General Info Date of Service: 03/20/21 Admission Dx/Problem (Free Text): Admission Diagnosis/Problem Admission Diagnosis/Problem Status post fracture of femur Subjective Update: feeling ok today. no acute concerns. Functional Status: Reports: Pain Controlled - Review of Systems General: Reports: No Symptoms HEENT: Reports: No Symptoms Pulmonary: Reports: No Symptoms Cardiovascular: Reports: No Symptoms Gastrointestinal: Reports: No Symptoms Genitourinary: Reports: Hematuria Musculoskeletal: Reports: No Symptoms Skin: Reports: No Symptoms Neurological: Reports: No Symptoms Psychiatric: Reports: No Symptoms - Patient Data Vitals - Most Recent: Last Vital Signs Temp 96.9 F 03/20/21 08:00 Pulse 71 03/20/21 08:00 Resp 14 03/20/21 08:00 BP 122/101 H 03/20/21 08:00 Pulse Ox 100 03/20/21 08:00 Weight - Most Recent: 256 lb 6.4 oz I&O - Last 24 Hours: Intake & Output 03/19/21 03/20/21 03/20/21 22:59 06:59 14:59 Intake Total 840 180 480 Output Total 500 500 Balance 340 -320 480 Lab Results Last 24 Hours: Laboratory Results - last 24 hr 03/20/21 03/20/21 Range/Units 07:18 07:18 WBC 8.1 (4.0-10.2) K/uL RBC 2.76 L (4.33-5.41) M/uL Hgb 8.7 L (13.1-16.8) g/dL Hct 26.7 L (39.0-49.0) % MCV 96.7 (84.0-98.0) fL MCH 31.5 (28.2-33.3) pg MCHC 32.6 (31.7-36.0) g/dL RDW 15.0 H (11.2-14.1) % Plt Count 293 D (150-350) K/uL Neut % (Auto) 70.7 (45.0-80.0) % Lymph % (Auto) 11.0 (10.0-50.0) % Stephenson % (Auto) 14.5 H (2.0-14.0) % Eos % (Auto) 3.3 (0.0-5.0) % Baso % (Auto) 0.5 (0.0-2.0) % Neut # (Auto) 5.69 (1.40-7.00) K/uL Lymph # (Auto) 0.89 (0.50-3.50) K/uL Stephenson # (Auto) 1.17 H (0.00-1.00) K/uL Eos # (Auto) 0.27 (0.00-0.50) K/uL Baso # (Auto) 0.04 (0.00-0.20) K/uL Sodium 138 (136-145) mmol/L Potassium 4.7 (3.5-5.1) mmol/L Chloride 104 (98-107) mmol/L Carbon Dioxide 23.2 (21.0-32.0) mmol/L Anion Gap 10.8 (7-15) meq/L BUN 45 H (7-18) mg/dL Creatinine 3.78 H* D (0.51-1.17) mg/dL Est Cr Clr Drug Dosing 15.77 mL/min Estimated GFR (MDRD) 15 mL/min Glucose 132 H (70-99) mg/dL Calcium 8.4 L (8.5-10.1) mg/dL Med Orders - Current: Current Medications Acetaminophen (Acetaminophen 500 Mg Tab) 1,000 mg PO TID@0800,1400,2000 [facility] Last Admin: 03/20/21 07:49 Dose: 1,000 mg Documented by: Acetaminophen (Acetaminophen 325 Mg Tab) 325 mg PO TID PRN PRN Reason: Pain Last Admin: 03/19/21 00:59 Dose: 325 mg Documented by: Acyclovir (Acyclovir 200 Mg Cap) 400 mg PO BID [facility] Last Admin: 03/20/21 07:47 Dose: 400 mg Documented by: Atorvastatin Calcium (Atorvastatin 10 Mg Tab) 10 mg PO BEDTIME [facility] Last Admin: 03/19/21 20:13 Dose: 10 mg Documented by: Calcium Carbonate/Glycine (Calcium Carbonate 500 Mg Tab.Chew) 1,000 mg PO Q4H PRN PRN Reason: Heartburn Carbidopa/Levodopa (Carbidopa/Levodopa 25-100 Mg Tab) 1 tab PO BID [facility] Last Admin: 03/20/21 07:49 Dose: 1 tab Documented by: Cholecalciferol (Cholecalciferol (Vitamin D3) 25 Mcg Tab) 25 mcg PO DAILY [facility] Last Admin: 03/20/21 07:46 Dose: 25 mcg Documented by: Cyclobenzaprine HCl (Cyclobenzaprine 10 Mg Tab) 5 mg PO TID PRN PRN Reason: Muscle Spasm - Painful Last Admin: 03/19/21 21:39 Dose: 5 mg Documented by: Finasteride (Finasteride 5 Mg Tab) 5 mg PO DAILY [facility] Last Admin: 03/20/21 07:49 Dose: 5 mg Documented by: Furosemide (Furosemide 20 Mg Tab) 60 mg PO DAILY [facility] Last Admin: 03/20/21 07:49 Dose: 60 mg Documented by: Hydrocortisone (Hydrocortisone 1% Crm 30 Gm Tube) 1 gm TOP BID PRN PRN Reason: Itching Skin Last Admin: 03/06/21 15:16 Dose: 1 applic Documented by: Melatonin (Melatonin 3 Mg Tab) 3 mg PO BEDTIME PRN PRN Reason: Insomnia Last Admin: 03/19/21 20:15 Dose: 3 mg Documented by: Metoprolol Tartrate (Metoprolol Tartrate 50 Mg Tab) 50 mg PO BID [facility] Last Admin: 03/20/21 07:48 Dose: 50 mg Documented by: Montelukast Sodium (Montelukast 10 Mg Tab) 10 mg PO ASDIRECTED [facility] Neomycin/Polymyxin/Bacitracin (Bacitracin/Neomycin/Polymyxin B Oint 0.9 Gm U/D Packet) 1 each TOP BID [facility] Last Admin: 03/20/21 07:50 Dose: 1 each Documented by: Omeprazole (Omeprazole 20 Mg Cap.Cr) 20 mg PO ACBREAKFAST [facility] Last Admin: 03/20/21 07:46 Dose: 20 mg Documented by: Oxybutynin Chloride (Oxybutynin 5 Mg Tab) 2.5 mg PO TID [facility] Last Admin: 03/20/21 07:48 Dose: 2.5 mg Documented by: Polyethylene Glycol (Polyethylene Glycol 3350 Powder 17 Gm Packet) 17 gm PO DAILY PRN PRN Reason: Constipation Senna/Docusate Sodium (Docusate Sodium/Sennosides 50-8.6 Mg Tab) 2 tab PO BID [facility] Last Admin: 03/20/21 07:47 Dose: 2 tab Documented by: Tamsulosin HCl (Tamsulosin 0.4 Mg Cap.Er) 0.4 mg PO DAILY [facility] Last Admin: 03/20/21 07:46 Dose: 0.4 mg Documented by: Trazodone HCl (Trazodone 50 Mg Tab) 25 mg PO BEDTIME [facility] Last Admin: 03/19/21 20:14 Dose: 25 mg Documented by: Trimethoprim/Sulfamethoxazole (Sulfamethoxazole/Trimethoprim 800-160 Mg Tab) 1 tab PO Q12HR [facility] Stop: 03/21/21 10:00 Last Admin: 03/20/21 07:49 Dose: 1 tab Documented by: Vitamin B Complex (Vitamin B Complex Tab) 1 each PO DAILY [facility] Last Admin: 03/20/21 07:49 Dose: 1 each Documented by: Discontinued Medications Acetaminophen (Acetaminophen 500 Mg Tab) 1,000 mg PO TID [facility] Last Admin: 02/27/21 07:36 Dose: 1,000 mg Documented by: Apixaban (Apixaban 2.5 Mg Tab) 2.5 mg PO BID [facility] Stop: 03/14/21 18:01 Last Admin: 03/14/21 17:42 Dose: 2.5 mg Documented by: Aspirin (Aspirin 325 Mg Tab.Ec) 325 mg PO DAILY [facility] Aspirin (Aspirin 81 Mg Tab.Chew) 81 mg PO BEDTIME [facility] Last Admin: 03/19/21 20:15 Dose: 81 mg Documented by: Cefuroxime Axetil (Cefuroxime 250 Mg Tab) 250 mg PO BID [facility] Stop: 03/06/21 12:00 Last Admin: 03/06/21 08:03 Dose: 250 mg Documented by: Ciprofloxacin (Ciprofloxacin 500 Mg Tab) 250 mg PO DAILY@1700 [facility] Stop: 03/02/21 17:01 Naloxone HCl (Naloxone 0.4 Mg/Ml Sdv) 0.2 mg IM ASDIRECTED PRN PRN Reason: Other Naloxone HCl (Naloxone 0.4 Mg/Ml Sdv) 0.4 mg IM ASDIRECTED PRN PRN Reason: Other Oxycodone HCl (Oxycodone 5 Mg Tab) 5 mg PO Q6HR PRN PRN Reason: Moderate Pain Last Admin: 03/03/21 08:27 Dose: 5 mg Documented by: Senna/Docusate Sodium (Docusate Sodium/Sennosides 50-8.6 Mg Tab) Confirm Administered Dose 1 tab .ROUTE .STK-MED ONE Stop: 03/14/21 17:48 Last Admin: 03/14/21 18:19 Dose: Not Given Documented by: Trimethoprim/Sulfamethoxazole (Sulfamethoxazole/Trimethoprim 800-160 Mg Tab) 2 tab PO Q8HR TOSIN Trimethoprim/Sulfamethoxazole (Sulfamethoxazole/Trimethoprim 800-160 Mg Tab) 2 tab PO Q12HR TOSIN - Exam Urinary Catheter Total Time: 0Days 12Hours General: Alert, Oriented (Male) Exam: Other (arce catheter present. no urine draining. clots present) - Patient Data Lab Results Last 24 hrs: Laboratory Results - last 24 hr 03/20/21 03/20/21 Range/Units 07:18 07:18 WBC 8.1 (4.0-10.2) K/uL RBC 2.76 L (4.33-5.41) M/uL Hgb 8.7 L (13.1-16.8) g/dL Hct 26.7 L (39.0-49.0) % MCV 96.7 (84.0-98.0) fL MCH 31.5 (28.2-33.3) pg MCHC 32.6 (31.7-36.0) g/dL RDW 15.0 H (11.2-14.1) % Plt Count 293 D (150-350) K/uL Neut % (Auto) 70.7 (45.0-80.0) % Lymph % (Auto) 11.0 (10.0-50.0) % Stephenson % (Auto) 14.5 H (2.0-14.0) % Eos % (Auto) 3.3 (0.0-5.0) % Baso % (Auto) 0.5 (0.0-2.0) % Neut # (Auto) 5.69 (1.40-7.00) K/uL Lymph # (Auto) 0.89 (0.50-3.50) K/uL Stephenson # (Auto) 1.17 H (0.00-1.00) K/uL Eos # (Auto) 0.27 (0.00-0.50) K/uL Baso # (Auto) 0.04 (0.00-0.20) K/uL Sodium 138 (136-145) mmol/L Potassium 4.7 (3.5-5.1) mmol/L Chloride 104 (98-107) mmol/L Carbon Dioxide 23.2 (21.0-32.0) mmol/L Anion Gap 10.8 (7-15) meq/L BUN 45 H (7-18) mg/dL Creatinine 3.78 H* D (0.51-1.17) mg/dL Est Cr Clr Drug Dosing 15.77 mL/min Estimated GFR (MDRD) 15 mL/min Glucose 132 H (70-99) mg/dL Calcium 8.4 L (8.5-10.1) mg/dL Result Diagrams: 03/20/21 07:18 03/20/21 07:18 Sepsis Event Note - Evaluation Sepsis Screening Result: No Definite Risk - Focused Exam Vital Signs: Vital Signs Temp Pulse Pulse Resp BP BP Pulse Ox 03/20/21 08:00 96.9 F 71 14 122/101 H 100 03/20/21 07:48 71 122/101 H - My Orders Last 24 Hours: My Active Orders 03/21/21 09:11 BASIC METABOLIC PANEL,BMP [CHEM] Routine - Plan Plan:: as above. There are concerns that patient will not be able to return to level of physical ability to be able to return to his home where he lives alone. Patient is not interested in us contacting any family members to get them to assist him. Concern is compounded by observation of frequent mild confusion. There is concern for patient's safety in being able to return home and may need senior living placement. Case management is involved.
[2021-03-20] MEDS: atorvaSTATin 10 MG Tab PO SCH (19:35)
[2021-03-20] MEDS: traZODone 50 MG Tab PO SCH (19:36)
[2021-03-20] MEDS: Melatonin 3 MG Tab PO PRN (19:37)
[2021-03-21] MEDS: Acetaminophen 325 MG Tab PO PRN (01:03)
[2021-03-21] MEDS: Metoprolol Tartrate 50 MG Tab PO SCH ×2 (07:52→17:23)
[2021-03-21] MEDS: Acyclovir 200 MG Cap PO SCH ×2 (07:52→17:23)
[2021-03-21] MEDS: Finasteride 5 MG Tab PO SCH (07:52)
[2021-03-21] MEDS: Acetaminophen 500 MG Tab PO SCH ×3 (07:52→19:33)
[2021-03-21] MEDS: Omeprazole 20 MG Cap.CR PO SCH (07:52)
[2021-03-21] MEDS: Carbidopa/Levodopa 25-100 MG Tab PO SCH ×2 (07:52→17:23)
[2021-03-21] MEDS: Sulfamethoxazole/Trimethoprim 800-160 MG Tab PO SCH (07:52)
[2021-03-21] MEDS: Tamsulosin 0.4 MG Cap.ER PO SCH (07:52)
[2021-03-21] MEDS: Cholecalciferol (Vitamin D3) 25 MCG Tab PO SCH (07:52)
[2021-03-21] MEDS: Oxybutynin 5 MG Tab PO SCH ×3 (07:52→17:23)
[2021-03-21] MEDS: Furosemide 20 MG Tab PO SCH (07:53)
[2021-03-21] MEDS: Vitamin B Complex Tab PO SCH (07:53)
[2021-03-21] MEDS: Bacitracin/Neomycin/Polymyxin B Oint 0.9 GM U/D Packet TOP SCH ×2 (07:53→17:23)
[2021-03-21 07:59] LABS: ANION GAP 13.9 meq/L (7-15)
--- NOTE | 2021-03-21 17:52 | PCM.SN.2 ---
- Free Text/Narrative Note: Note patient is swing bed and was seen in Ed for bladder outlet obstruction and elevated creatine to 3.7 from 2.7. Catheter relieved the obstruction. input and out put are better, but repeat creatinine this am is unchange. Lasix was to be held today, order had been placed to hold, but still given. Order to stop is now placed to ensure this does not happen. CAn not give IV fluids due to swing[facility] status, is otherwise doing well. Will encourage PO fluids liberally, hold lasix on 03/22 and 03/23. repeat labs on 03/23 on day should be going to [facility]. Note is in follow up to Labs only.
[2021-03-21] MEDS: traZODone 50 MG Tab PO SCH (19:31)
[2021-03-21] MEDS: atorvaSTATin 10 MG Tab PO SCH (19:32)
[2021-03-21] MEDS: Melatonin 3 MG Tab PO PRN (19:33)
[2021-03-22] MEDS: Acetaminophen 500 MG Tab PO SCH ×3 (07:45→20:17)
[2021-03-22] MEDS: Vitamin B Complex Tab PO SCH (07:45)
[2021-03-22] MEDS: Finasteride 5 MG Tab PO SCH (07:46)
[2021-03-22] MEDS: Carbidopa/Levodopa 25-100 MG Tab PO SCH ×2 (07:46→17:24)
[2021-03-22] MEDS: Acyclovir 200 MG Cap PO SCH ×2 (07:46→17:24)
[2021-03-22] MEDS: Tamsulosin 0.4 MG Cap.ER PO SCH (07:46)
[2021-03-22] MEDS: Omeprazole 20 MG Cap.CR PO SCH (07:46)
[2021-03-22] MEDS: Oxybutynin 5 MG Tab PO SCH ×3 (07:46→17:25)
[2021-03-22] MEDS: Cholecalciferol (Vitamin D3) 25 MCG Tab PO SCH (07:46)
[2021-03-22] MEDS: Metoprolol Tartrate 50 MG Tab PO SCH ×2 (07:46→17:26)
[2021-03-22] MEDS: Bacitracin/Neomycin/Polymyxin B Oint 0.9 GM U/D Packet TOP SCH ×2 (07:50→17:24)
[2021-03-22] MEDS: atorvaSTATin 10 MG Tab PO SCH (20:16)
[2021-03-22] MEDS: traZODone 50 MG Tab PO SCH (20:16)
[2021-03-22] MEDS: Melatonin 3 MG Tab PO PRN (20:17)
[2021-03-23] MEDS: Acyclovir 200 MG Cap PO SCH ×2 (07:23→17:39)
[2021-03-23] MEDS: Cholecalciferol (Vitamin D3) 25 MCG Tab PO SCH (07:23)
[2021-03-23] MEDS: Finasteride 5 MG Tab PO SCH (07:26)
[2021-03-23] MEDS: Oxybutynin 5 MG Tab PO SCH ×3 (07:26→17:41)
[2021-03-23] MEDS: Vitamin B Complex Tab PO SCH (07:26)
[2021-03-23] MEDS: Tamsulosin 0.4 MG Cap.ER PO SCH (07:26)
[2021-03-23] MEDS: Omeprazole 20 MG Cap.CR PO SCH (07:27)
[2021-03-23] MEDS: Bacitracin/Neomycin/Polymyxin B Oint 0.9 GM U/D Packet TOP SCH ×2 (07:27→17:42)
[2021-03-23] MEDS: Carbidopa/Levodopa 25-100 MG Tab PO SCH ×2 (07:27→17:40)
[2021-03-23] MEDS: Metoprolol Tartrate 50 MG Tab PO SCH ×2 (07:28→17:40)
[2021-03-23] MEDS: Acetaminophen 500 MG Tab PO SCH ×3 (07:28→19:45)
[2021-03-23 09:09] LABS: ANION GAP 17.9 meq/L (7-15)
[2021-03-23] MEDS: Melatonin 3 MG Tab PO PRN (19:46)
[2021-03-23] MEDS: traZODone 50 MG Tab PO SCH (19:46)
[2021-03-23] MEDS: atorvaSTATin 10 MG Tab PO SCH (19:47)
[2021-03-24] MEDS: Acetaminophen 500 MG Tab PO SCH ×3 (07:30→20:20)
[2021-03-24] MEDS: Vitamin B Complex Tab PO SCH (07:30)
[2021-03-24] MEDS: Oxybutynin 5 MG Tab PO SCH ×3 (07:30→17:19)
[2021-03-24] MEDS: Omeprazole 20 MG Cap.CR PO SCH (07:32)
[2021-03-24] MEDS: Tamsulosin 0.4 MG Cap.ER PO SCH (07:32)
[2021-03-24] MEDS: Acyclovir 200 MG Cap PO SCH ×2 (07:32→17:18)
[2021-03-24] MEDS: Cholecalciferol (Vitamin D3) 25 MCG Tab PO SCH (07:32)
[2021-03-24] MEDS: Carbidopa/Levodopa 25-100 MG Tab PO SCH ×2 (07:32→17:20)
[2021-03-24] MEDS: Finasteride 5 MG Tab PO SCH (07:32)
[2021-03-24] MEDS: Metoprolol Tartrate 50 MG Tab PO SCH ×2 (07:32→17:19)
[2021-03-24] MEDS: Bacitracin/Neomycin/Polymyxin B Oint 0.9 GM U/D Packet TOP SCH ×2 (07:33→17:20)
[2021-03-24] MEDS: Melatonin 3 MG Tab PO PRN (20:21)
[2021-03-24] MEDS: atorvaSTATin 10 MG Tab PO SCH (20:21)
[2021-03-24] MEDS: traZODone 50 MG Tab PO SCH (20:21)
[2021-03-25] MEDS: Acyclovir 200 MG Cap PO SCH ×2 (07:14→17:11)
[2021-03-25] MEDS: Vitamin B Complex Tab PO SCH (07:15)
[2021-03-25] MEDS: Omeprazole 20 MG Cap.CR PO SCH (07:16)
[2021-03-25] MEDS: Acetaminophen 500 MG Tab PO SCH ×3 (07:16→19:53)
[2021-03-25] MEDS: Cholecalciferol (Vitamin D3) 25 MCG Tab PO SCH (07:17)
[2021-03-25] MEDS: Metoprolol Tartrate 50 MG Tab PO SCH ×2 (07:17→17:12)
[2021-03-25] MEDS: Tamsulosin 0.4 MG Cap.ER PO SCH (07:17)
[2021-03-25] MEDS: Finasteride 5 MG Tab PO SCH (07:18)
[2021-03-25] MEDS: Oxybutynin 5 MG Tab PO SCH ×3 (07:18→17:13)
[2021-03-25] MEDS: Carbidopa/Levodopa 25-100 MG Tab PO SCH ×2 (07:18→17:12)
[2021-03-25] MEDS: Cyclobenzaprine 10 MG Tab PO PRN (07:19)
[2021-03-25] MEDS: Bacitracin/Neomycin/Polymyxin B Oint 0.9 GM U/D Packet TOP SCH ×2 (07:20→17:12)
[2021-03-25] MEDS: atorvaSTATin 10 MG Tab PO SCH (19:54)
[2021-03-25] MEDS: Melatonin 3 MG Tab PO PRN (19:54)
[2021-03-25] MEDS: traZODone 50 MG Tab PO SCH (19:54)
[2021-03-25] MEDS ORDERED: Furosemide 40 MG Tab PO ONE (20:33)
[2021-03-25] MEDS ORDERED: Bumetanide 1 MG Tab PO ONE (20:49)
[2021-03-26] MEDS: Acetaminophen 325 MG Tab PO PRN (05:48)
[2021-03-26] MEDS: Finasteride 5 MG Tab PO SCH (07:13)
[2021-03-26] MEDS: Omeprazole 20 MG Cap.CR PO SCH (07:13)
[2021-03-26] MEDS: Oxybutynin 5 MG Tab PO SCH ×3 (07:14→17:16)
[2021-03-26] MEDS: Acyclovir 200 MG Cap PO SCH ×2 (07:14→17:16)
[2021-03-26] MEDS: Acetaminophen 500 MG Tab PO SCH ×3 (07:14→19:15)
[2021-03-26] MEDS: Carbidopa/Levodopa 25-100 MG Tab PO SCH ×2 (07:15→17:15)
[2021-03-26] MEDS: Tamsulosin 0.4 MG Cap.ER PO SCH (07:16)
[2021-03-26] MEDS: Cholecalciferol (Vitamin D3) 25 MCG Tab PO SCH (07:16)
[2021-03-26] MEDS: Metoprolol Tartrate 50 MG Tab PO SCH ×2 (07:16→17:15)
[2021-03-26] MEDS: Vitamin B Complex Tab PO SCH (07:16)
[2021-03-26] MEDS: Bacitracin/Neomycin/Polymyxin B Oint 0.9 GM U/D Packet TOP SCH ×2 (07:17→17:17)
[2021-03-26] MEDS: atorvaSTATin 10 MG Tab PO SCH (19:15)
[2021-03-26] MEDS: traZODone 50 MG Tab PO SCH (19:16)
[2021-03-27] MEDS: Cyclobenzaprine 10 MG Tab PO PRN (03:07)
[2021-03-27] MEDS: Acetaminophen 325 MG Tab PO PRN (03:08)
[2021-03-27] MEDS: Acyclovir 200 MG Cap PO SCH ×2 (07:19→19:12)
[2021-03-27] MEDS: Cholecalciferol (Vitamin D3) 25 MCG Tab PO SCH (07:20)
[2021-03-27] MEDS: Vitamin B Complex Tab PO SCH (07:20)
[2021-03-27] MEDS: Acetaminophen 500 MG Tab PO SCH ×3 (07:20→19:12)
[2021-03-27] MEDS: Omeprazole 20 MG Cap.CR PO SCH (07:21)
[2021-03-27] MEDS: Tamsulosin 0.4 MG Cap.ER PO SCH (07:21)
[2021-03-27] MEDS: Carbidopa/Levodopa 25-100 MG Tab PO SCH ×2 (07:22→19:13)
[2021-03-27] MEDS: Finasteride 5 MG Tab PO SCH (07:22)
[2021-03-27] MEDS: Metoprolol Tartrate 50 MG Tab PO SCH ×2 (07:22→19:19)
[2021-03-27] MEDS: Oxybutynin 5 MG Tab PO SCH ×3 (07:23→19:13)
[2021-03-27] MEDS: Bacitracin/Neomycin/Polymyxin B Oint 0.9 GM U/D Packet TOP SCH ×3 (07:24→19:30)
[2021-03-27] MEDS: atorvaSTATin 10 MG Tab PO SCH (19:12)
[2021-03-27] MEDS: traZODone 50 MG Tab PO SCH (19:14)
[2021-03-27] MEDS: HYDROmorphone 2 MG Tab PO PRN (19:15)
[2021-03-27] MEDS: Hydrocortisone 1% Crm 30 GM Tube TOP PRN (22:43)
[2021-03-28] MEDS: HYDROmorphone 2 MG Tab PO PRN ×3 (07:05→19:31)
[2021-03-28] MEDS: Acetaminophen 500 MG Tab PO SCH ×3 (07:05→19:32)
[2021-03-28] MEDS: Omeprazole 20 MG Cap.CR PO SCH (07:06)
[2021-03-28] MEDS: Vitamin B Complex Tab PO SCH (07:06)
[2021-03-28] MEDS: Tamsulosin 0.4 MG Cap.ER PO SCH (07:06)
[2021-03-28] MEDS: Acyclovir 200 MG Cap PO SCH ×2 (07:07→18:24)
[2021-03-28] MEDS: Oxybutynin 5 MG Tab PO SCH ×3 (07:08→18:25)
[2021-03-28] MEDS: Metoprolol Tartrate 50 MG Tab PO SCH ×2 (07:08→18:25)
[2021-03-28] MEDS: Finasteride 5 MG Tab PO SCH (07:08)
[2021-03-28] MEDS: Carbidopa/Levodopa 25-100 MG Tab PO SCH ×2 (07:08→18:24)
[2021-03-28] MEDS: Cholecalciferol (Vitamin D3) 25 MCG Tab PO SCH (07:08)
[2021-03-28] MEDS: Bacitracin/Neomycin/Polymyxin B Oint 0.9 GM U/D Packet TOP SCH ×2 (07:09→18:26)
[2021-03-28] MEDS: Hydrocortisone 1% Crm 30 GM Tube TOP PRN (19:30)
[2021-03-28] MEDS: traZODone 50 MG Tab PO SCH (19:31)
[2021-03-28] MEDS: atorvaSTATin 10 MG Tab PO SCH (19:32)
[2021-03-28] MEDS: Cyclobenzaprine 10 MG Tab PO PRN (21:38)
[2021-03-29] MEDS: HYDROmorphone 2 MG Tab PO PRN ×2 (05:50→10:47)
[2021-03-29] MEDS: Vitamin B Complex Tab PO SCH (07:06)
[2021-03-29] MEDS: Tamsulosin 0.4 MG Cap.ER PO SCH (07:07)
[2021-03-29] MEDS: Cholecalciferol (Vitamin D3) 25 MCG Tab PO SCH (07:07)
[2021-03-29] MEDS: Omeprazole 20 MG Cap.CR PO SCH (07:08)
[2021-03-29] MEDS: Acetaminophen 500 MG Tab PO SCH ×3 (07:08→19:12)
[2021-03-29] MEDS: Finasteride 5 MG Tab PO SCH (07:08)
[2021-03-29] MEDS: Oxybutynin 5 MG Tab PO SCH ×3 (07:09→17:55)
[2021-03-29] MEDS: Carbidopa/Levodopa 25-100 MG Tab PO SCH ×2 (07:09→17:53)
[2021-03-29] MEDS: Metoprolol Tartrate 50 MG Tab PO SCH ×2 (07:09→17:54)
[2021-03-29] MEDS: Acyclovir 200 MG Cap PO SCH ×2 (07:10→17:53)
[2021-03-29] MEDS: Bacitracin/Neomycin/Polymyxin B Oint 0.9 GM U/D Packet TOP SCH ×2 (07:10→17:54)
[2021-03-29] MEDS: traZODone 50 MG Tab PO SCH (19:12)
[2021-03-29] MEDS: atorvaSTATin 10 MG Tab PO SCH (19:13)
[2021-03-30] MEDS: HYDROmorphone 2 MG Tab PO PRN ×2 (03:09→20:05)
[2021-03-30] MEDS: Melatonin 3 MG Tab PO PRN (03:09)
[2021-03-30] MEDS: Acetaminophen 500 MG Tab PO SCH ×3 (08:51→20:03)
[2021-03-30] MEDS: Oxybutynin 5 MG Tab PO SCH ×3 (08:52→18:08)
[2021-03-30] MEDS: Tamsulosin 0.4 MG Cap.ER PO SCH (08:52)
[2021-03-30] MEDS: Omeprazole 20 MG Cap.CR PO SCH (08:53)
[2021-03-30] MEDS: Acyclovir 200 MG Cap PO SCH ×2 (08:53→18:10)
[2021-03-30] MEDS: Cholecalciferol (Vitamin D3) 25 MCG Tab PO SCH (08:53)
[2021-03-30] MEDS: Carbidopa/Levodopa 25-100 MG Tab PO SCH ×2 (08:54→18:10)
[2021-03-30] MEDS: Bacitracin/Neomycin/Polymyxin B Oint 0.9 GM U/D Packet TOP SCH ×2 (08:54→18:58)
[2021-03-30] MEDS: Finasteride 5 MG Tab PO SCH (08:54)
[2021-03-30] MEDS: Vitamin B Complex Tab PO SCH (08:54)
[2021-03-30] MEDS: Metoprolol Tartrate 50 MG Tab PO SCH ×2 (08:58→18:07)
[2021-03-30] MEDS: traZODone 50 MG Tab PO SCH (20:02)
[2021-03-30] MEDS: atorvaSTATin 10 MG Tab PO SCH (20:04)
[2021-03-30] MEDS: Hydrocortisone 1% Crm 30 GM Tube TOP PRN (20:18)
[2021-03-30] MEDS: Cyclobenzaprine 10 MG Tab PO PRN (20:56)
[2021-03-31] MEDS: HYDROmorphone 2 MG Tab PO PRN (06:09)
[2021-03-31] MEDS: Acyclovir 200 MG Cap PO SCH ×2 (07:06→17:32)
[2021-03-31] MEDS: Tamsulosin 0.4 MG Cap.ER PO SCH (07:07)
[2021-03-31] MEDS: Oxybutynin 5 MG Tab PO SCH ×3 (07:07→17:34)
[2021-03-31] MEDS: Vitamin B Complex Tab PO SCH (07:08)
[2021-03-31] MEDS: Cholecalciferol (Vitamin D3) 25 MCG Tab PO SCH (07:08)
[2021-03-31] MEDS: Finasteride 5 MG Tab PO SCH (07:08)
[2021-03-31] MEDS: Carbidopa/Levodopa 25-100 MG Tab PO SCH ×2 (07:08→17:33)
[2021-03-31] MEDS: Omeprazole 20 MG Cap.CR PO SCH (07:08)
[2021-03-31] MEDS: Acetaminophen 500 MG Tab PO SCH ×3 (07:09→19:15)
[2021-03-31] MEDS: Metoprolol Tartrate 50 MG Tab PO SCH ×2 (07:11→17:33)
[2021-03-31] MEDS: Bacitracin/Neomycin/Polymyxin B Oint 0.9 GM U/D Packet TOP SCH ×2 (07:13→17:34)
[2021-03-31] MEDS: traZODone 50 MG Tab PO SCH (19:15)
[2021-03-31] MEDS: atorvaSTATin 10 MG Tab PO SCH (19:15)
[2021-04-01] MEDS: HYDROmorphone 2 MG Tab PO PRN (02:18)
[2021-04-01] MEDS: Acetaminophen 325 MG Tab PO PRN (02:18)
[2021-04-01] MEDS: Acetaminophen 500 MG Tab PO SCH ×3 (08:32→19:35)
[2021-04-01] MEDS: Cholecalciferol (Vitamin D3) 25 MCG Tab PO SCH (08:32)
[2021-04-01] MEDS: Acyclovir 200 MG Cap PO SCH ×2 (08:32→17:16)
[2021-04-01] MEDS: Omeprazole 20 MG Cap.CR PO SCH (08:32)
[2021-04-01] MEDS: Metoprolol Tartrate 50 MG Tab PO SCH ×2 (08:33→17:17)
[2021-04-01] MEDS: Finasteride 5 MG Tab PO SCH (08:33)
[2021-04-01] MEDS: Vitamin B Complex Tab PO SCH (08:33)
[2021-04-01] MEDS: Tamsulosin 0.4 MG Cap.ER PO SCH (08:33)
[2021-04-01] MEDS: Oxybutynin 5 MG Tab PO SCH ×3 (08:33→17:17)
[2021-04-01] MEDS: Bacitracin/Neomycin/Polymyxin B Oint 0.9 GM U/D Packet TOP SCH ×2 (08:36→17:18)
[2021-04-01] MEDS: Carbidopa/Levodopa 25-100 MG Tab PO SCH ×2 (08:36→17:17)
[2021-04-01] MEDS: traZODone 50 MG Tab PO SCH (19:35)
[2021-04-01] MEDS: atorvaSTATin 10 MG Tab PO SCH (19:35)
[2021-04-02] MEDS: Finasteride 5 MG Tab PO SCH (07:33)
[2021-04-02] MEDS: Acetaminophen 500 MG Tab PO SCH ×3 (07:33→19:09)
[2021-04-02] MEDS: Oxybutynin 5 MG Tab PO SCH ×3 (07:34→17:50)
[2021-04-02] MEDS: Tamsulosin 0.4 MG Cap.ER PO SCH (07:34)
[2021-04-02] MEDS: Vitamin B Complex Tab PO SCH (07:35)
[2021-04-02] MEDS: Acyclovir 200 MG Cap PO SCH ×2 (07:35→17:47)
[2021-04-02] MEDS: Carbidopa/Levodopa 25-100 MG Tab PO SCH ×2 (07:35→17:48)
[2021-04-02] MEDS: Metoprolol Tartrate 50 MG Tab PO SCH ×2 (07:37→17:49)
[2021-04-02] MEDS: Cholecalciferol (Vitamin D3) 25 MCG Tab PO SCH (07:38)
[2021-04-02] MEDS: Bacitracin/Neomycin/Polymyxin B Oint 0.9 GM U/D Packet TOP SCH ×2 (07:38→17:50)
[2021-04-02] MEDS: Omeprazole 20 MG Cap.CR PO SCH (07:41)
[2021-04-02] MEDS: HYDROmorphone 2 MG Tab PO PRN ×2 (11:07→22:05)
--- NOTE | 2021-04-02 17:44 | PCM.SN.2 ---
- Free Text/Narrative Note: It has been noted by staff that patient is not competent to care for self and make own health care decisions. Despite PT/OT working with patient, patient continues to bear weight on the injured extremity when he has been frequently told not to do so, and he cannot care for Turpin catheter. Patient also has pulled the Turpin out and thus needed replacement. He frequently re-asks the same questions and does not remember previous answers/explanations. Patient cannot formulate a clear plan as to how he would go about caring for himself at home. He asks about inappropriate things, such as when he is to start chemo again (he has been discharged from Oncology clinic and told he is not candidate for additional treatments), and sometimes cannot recall correct year.
[2021-04-02] MEDS: atorvaSTATin 10 MG Tab PO SCH (19:09)
[2021-04-02] MEDS: traZODone 50 MG Tab PO SCH (19:09)
[2021-04-02] MEDS: Hydrocortisone 1% Crm 30 GM Tube TOP PRN (22:05)
[2021-04-03] MEDS: Acyclovir 200 MG Cap PO SCH (08:11)
[2021-04-03] MEDS: Omeprazole 20 MG Cap.CR PO SCH (08:11)
[2021-04-03] MEDS: Carbidopa/Levodopa 25-100 MG Tab PO SCH ×2 (08:12→17:58)
[2021-04-03] MEDS: Finasteride 5 MG Tab PO SCH (08:12)
[2021-04-03] MEDS: Metoprolol Tartrate 50 MG Tab PO SCH ×2 (08:13→17:59)
[2021-04-03] MEDS: Oxybutynin 5 MG Tab PO SCH ×3 (08:13→17:59)
[2021-04-03] MEDS: Tamsulosin 0.4 MG Cap.ER PO SCH (08:14)
[2021-04-03] MEDS: Vitamin B Complex Tab PO SCH (08:14)
[2021-04-03] MEDS: Cholecalciferol (Vitamin D3) 25 MCG Tab PO SCH (08:14)
[2021-04-03] MEDS: Acetaminophen 500 MG Tab PO SCH ×3 (08:15→20:15)
[2021-04-03] MEDS: Bacitracin/Neomycin/Polymyxin B Oint 0.9 GM U/D Packet TOP SCH ×2 (08:15→18:00)
[2021-04-03] MEDS: ACYCLOVIR 400 MG PO SCH (17:58)
[2021-04-03] MEDS: traZODone 50 MG Tab PO SCH (20:16)
[2021-04-03] MEDS: atorvaSTATin 10 MG Tab PO SCH (20:16)
[2021-04-04] MEDS: HYDROmorphone 2 MG Tab PO PRN (06:19)
[2021-04-04] MEDS: Tamsulosin 0.4 MG Cap.ER PO SCH (07:49)
[2021-04-04] MEDS: ACYCLOVIR 400 MG PO SCH ×2 (07:50→18:27)
[2021-04-04] MEDS: Carbidopa/Levodopa 25-100 MG Tab PO SCH ×2 (07:50→18:27)
[2021-04-04] MEDS: Finasteride 5 MG Tab PO SCH (07:50)
[2021-04-04] MEDS: Oxybutynin 5 MG Tab PO SCH ×3 (07:50→18:26)
[2021-04-04] MEDS: Omeprazole 20 MG Cap.CR PO SCH (07:50)
[2021-04-04] MEDS: Cholecalciferol (Vitamin D3) 25 MCG Tab PO SCH (07:51)
[2021-04-04] MEDS: Vitamin B Complex Tab PO SCH (07:51)
[2021-04-04] MEDS: Acetaminophen 500 MG Tab PO SCH ×3 (07:52→21:23)
[2021-04-04] MEDS: Bacitracin/Neomycin/Polymyxin B Oint 0.9 GM U/D Packet TOP SCH ×2 (07:53→18:27)
[2021-04-04] MEDS: Metoprolol Tartrate 50 MG Tab PO SCH ×2 (07:54→18:26)
[2021-04-04] MEDS: traZODone 50 MG Tab PO SCH (21:23)
[2021-04-04] MEDS: atorvaSTATin 10 MG Tab PO SCH (21:23)
[2021-04-05] MEDS: Hydrocortisone 1% Crm 30 GM Tube TOP PRN ×2 (00:13→20:29)
[2021-04-05] MEDS: HYDROmorphone 2 MG Tab PO PRN ×2 (00:13→07:32)
[2021-04-05] MEDS: Vitamin B Complex Tab PO SCH (07:33)
[2021-04-05] MEDS: Acetaminophen 500 MG Tab PO SCH ×3 (07:34→20:27)
[2021-04-05] MEDS: Carbidopa/Levodopa 25-100 MG Tab PO SCH ×2 (07:35→17:39)
[2021-04-05] MEDS: Oxybutynin 5 MG Tab PO SCH ×3 (07:35→17:40)
[2021-04-05] MEDS: Cholecalciferol (Vitamin D3) 25 MCG Tab PO SCH (07:35)
[2021-04-05] MEDS: Tamsulosin 0.4 MG Cap.ER PO SCH (07:35)
[2021-04-05] MEDS: ACYCLOVIR 400 MG PO SCH ×2 (07:35→17:39)
[2021-04-05] MEDS: Finasteride 5 MG Tab PO SCH (07:35)
[2021-04-05] MEDS: Omeprazole 20 MG Cap.CR PO SCH (07:36)
[2021-04-05] MEDS: Metoprolol Tartrate 50 MG Tab PO SCH ×2 (07:36→17:40)
[2021-04-05] MEDS: Bacitracin/Neomycin/Polymyxin B Oint 0.9 GM U/D Packet TOP SCH (07:52)
[2021-04-05] MEDS ORDERED: Bacitracin/Neomycin/Polymyxin B Oint 0.9 GM U/D Packet TOP PRN (07:53)
[2021-04-05] MEDS: atorvaSTATin 10 MG Tab PO SCH (20:26)
[2021-04-05] MEDS: traZODone 50 MG Tab PO SCH (20:27)
[2021-04-06] MEDS: HYDROmorphone 2 MG Tab PO PRN (04:32)
[2021-04-06] MEDS: CYCLOBENZAPRINE 5 MG PO PRN (06:33)
[2021-04-06] MEDS: Cholecalciferol (Vitamin D3) 25 MCG Tab PO SCH (07:51)
[2021-04-06] MEDS: Vitamin B Complex Tab PO SCH (07:51)
[2021-04-06] MEDS: Acetaminophen 500 MG Tab PO SCH ×3 (07:52→20:06)
[2021-04-06] MEDS: Carbidopa/Levodopa 25-100 MG Tab PO SCH ×2 (07:53→17:42)
[2021-04-06] MEDS: Finasteride 5 MG Tab PO SCH (07:53)
[2021-04-06] MEDS: Tamsulosin 0.4 MG Cap.ER PO SCH (07:53)
[2021-04-06] MEDS: Oxybutynin 5 MG Tab PO SCH ×3 (07:53→17:41)
[2021-04-06] MEDS: ACYCLOVIR 400 MG PO SCH ×2 (07:54→17:42)
[2021-04-06] MEDS: Omeprazole 20 MG Cap.CR PO SCH (07:54)
[2021-04-06] MEDS: Metoprolol Tartrate 50 MG Tab PO SCH ×2 (07:55→17:41)
[2021-04-06] MEDS: Hydrocortisone 1% Crm 30 GM Tube TOP PRN (08:40)
[2021-04-06] MEDS: traZODone 50 MG Tab PO SCH (20:05)
[2021-04-06] MEDS: atorvaSTATin 10 MG Tab PO SCH (20:05)
[2021-04-07] MEDS: CYCLOBENZAPRINE 5 MG PO PRN (03:41)
[2021-04-07] MEDS: HYDROmorphone 2 MG Tab PO PRN (04:59)
[2021-04-07] MEDS: Vitamin B Complex Tab PO SCH (07:17)
[2021-04-07] MEDS: Cholecalciferol (Vitamin D3) 25 MCG Tab PO SCH (07:17)
[2021-04-07] MEDS: Acetaminophen 500 MG Tab PO SCH ×3 (07:18→19:34)
[2021-04-07] MEDS: Tamsulosin 0.4 MG Cap.ER PO SCH (07:18)
[2021-04-07] MEDS: Finasteride 5 MG Tab PO SCH (07:19)
[2021-04-07] MEDS: Oxybutynin 5 MG Tab PO SCH ×3 (07:19→18:11)
[2021-04-07] MEDS: ACYCLOVIR 400 MG PO SCH ×2 (07:19→18:11)
[2021-04-07] MEDS: Carbidopa/Levodopa 25-100 MG Tab PO SCH ×2 (07:19→18:11)
[2021-04-07] MEDS: Omeprazole 20 MG Cap.CR PO SCH (07:20)
[2021-04-07] MEDS: Metoprolol Tartrate 50 MG Tab PO SCH ×2 (07:24→18:11)
[2021-04-07] MEDS: atorvaSTATin 10 MG Tab PO SCH (19:34)
[2021-04-07] MEDS: traZODone 50 MG Tab PO SCH (19:34)
[2021-04-08] MEDS: HYDROmorphone 2 MG Tab PO PRN ×2 (07:42→19:53)
[2021-04-08] MEDS: Omeprazole 20 MG Cap.CR PO SCH (07:44)
[2021-04-08] MEDS: Tamsulosin 0.4 MG Cap.ER PO SCH (07:44)
[2021-04-08] MEDS: Oxybutynin 5 MG Tab PO SCH ×3 (07:45→17:55)
[2021-04-08] MEDS: Vitamin B Complex Tab PO SCH (07:45)
[2021-04-08] MEDS: Cholecalciferol (Vitamin D3) 25 MCG Tab PO SCH (07:45)
[2021-04-08] MEDS: Carbidopa/Levodopa 25-100 MG Tab PO SCH ×2 (07:45→17:54)
[2021-04-08] MEDS: Finasteride 5 MG Tab PO SCH (07:45)
[2021-04-08] MEDS: ACYCLOVIR 400 MG PO SCH ×2 (07:45→17:54)
[2021-04-08] MEDS: Acetaminophen 500 MG Tab PO SCH ×3 (07:46→19:52)
[2021-04-08] MEDS: Metoprolol Tartrate 50 MG Tab PO SCH ×2 (07:46→17:55)
[2021-04-08] MEDS: Hydrocortisone 1% Crm 30 GM Tube TOP PRN (07:48)
[2021-04-08] MEDS: traZODone 50 MG Tab PO SCH (19:52)
[2021-04-08] MEDS: atorvaSTATin 10 MG Tab PO SCH (19:52)
[2021-04-09] MEDS: Metoprolol Tartrate 50 MG Tab PO SCH ×2 (07:07→17:33)
[2021-04-09] MEDS: Finasteride 5 MG Tab PO SCH (07:08)
[2021-04-09] MEDS: Oxybutynin 5 MG Tab PO SCH ×3 (07:08→17:34)
[2021-04-09] MEDS: Tamsulosin 0.4 MG Cap.ER PO SCH (07:08)
[2021-04-09] MEDS: Omeprazole 20 MG Cap.CR PO SCH (07:08)
[2021-04-09] MEDS: ACYCLOVIR 400 MG PO SCH ×2 (07:08→17:33)
[2021-04-09] MEDS: Carbidopa/Levodopa 25-100 MG Tab PO SCH ×2 (07:08→17:33)
[2021-04-09] MEDS: Vitamin B Complex Tab PO SCH (07:09)
[2021-04-09] MEDS: Acetaminophen 500 MG Tab PO SCH ×3 (07:09→19:35)
[2021-04-09] MEDS: Cholecalciferol (Vitamin D3) 25 MCG Tab PO SCH (07:10)
[2021-04-09] MEDS: HYDROmorphone 2 MG Tab PO PRN (17:40)
[2021-04-09] MEDS: atorvaSTATin 10 MG Tab PO SCH (19:34)
[2021-04-09] MEDS: traZODone 50 MG Tab PO SCH (19:34)
[2021-04-09] MEDS: Melatonin 3 MG Tab PO PRN (19:35)
[2021-04-10] MEDS: HYDROmorphone 2 MG Tab PO PRN (04:45)
[2021-04-10] MEDS: Acetaminophen 500 MG Tab PO SCH ×3 (08:28→19:47)
[2021-04-10] MEDS: Omeprazole 20 MG Cap.CR PO SCH (08:28)
[2021-04-10] MEDS: Oxybutynin 5 MG Tab PO SCH ×3 (08:30→17:55)
[2021-04-10] MEDS: Cholecalciferol (Vitamin D3) 25 MCG Tab PO SCH (08:30)
[2021-04-10] MEDS: Finasteride 5 MG Tab PO SCH (08:30)
[2021-04-10] MEDS: Vitamin B Complex Tab PO SCH (08:30)
[2021-04-10] MEDS: Carbidopa/Levodopa 25-100 MG Tab PO SCH ×2 (08:30→17:55)
[2021-04-10] MEDS: Metoprolol Tartrate 50 MG Tab PO SCH ×2 (08:30→17:55)
[2021-04-10] MEDS: ACYCLOVIR 400 MG PO SCH ×2 (08:34→17:55)
[2021-04-10] MEDS: Tamsulosin 0.4 MG Cap.ER PO SCH (08:34)
[2021-04-10] MEDS: Melatonin 3 MG Tab PO PRN (19:48)
[2021-04-10] MEDS: atorvaSTATin 10 MG Tab PO SCH (19:48)
[2021-04-10] MEDS: traZODone 50 MG Tab PO SCH (19:49)
[2021-04-11] MEDS: HYDROmorphone 2 MG Tab PO PRN (04:36)
[2021-04-11] MEDS: Oxybutynin 5 MG Tab PO SCH ×3 (08:18→17:39)
[2021-04-11] MEDS: Carbidopa/Levodopa 25-100 MG Tab PO SCH ×2 (08:18→17:40)
[2021-04-11] MEDS: Finasteride 5 MG Tab PO SCH (08:18)
[2021-04-11] MEDS: Omeprazole 20 MG Cap.CR PO SCH (08:19)
[2021-04-11] MEDS: Metoprolol Tartrate 50 MG Tab PO SCH ×2 (08:19→17:39)
[2021-04-11] MEDS: ACYCLOVIR 400 MG PO SCH ×2 (08:19→17:39)
[2021-04-11] MEDS: Tamsulosin 0.4 MG Cap.ER PO SCH (08:19)
[2021-04-11] MEDS: Acetaminophen 500 MG Tab PO SCH ×3 (08:20→19:45)
[2021-04-11] MEDS: Cholecalciferol (Vitamin D3) 25 MCG Tab PO SCH (08:20)
[2021-04-11] MEDS: Vitamin B Complex Tab PO SCH (08:22)
[2021-04-11] MEDS: Melatonin 3 MG Tab PO PRN (19:46)
[2021-04-11] MEDS: atorvaSTATin 10 MG Tab PO SCH (19:46)
[2021-04-11] MEDS: traZODone 50 MG Tab PO SCH (19:46)
[2021-04-11] MEDS: Sulfamethoxazole/Trimethoprim 800-160 MG Tab PO SCH (22:48)
[2021-04-12] MEDS: HYDROmorphone 2 MG Tab PO PRN (03:28)
[2021-04-12] MEDS: Acetaminophen 500 MG Tab PO SCH ×3 (07:15→19:30)
[2021-04-12] MEDS: Finasteride 5 MG Tab PO SCH (07:16)
[2021-04-12] MEDS: Carbidopa/Levodopa 25-100 MG Tab PO SCH ×2 (07:16→17:36)
[2021-04-12] MEDS: ACYCLOVIR 400 MG PO SCH ×2 (07:17→17:36)
[2021-04-12] MEDS: Omeprazole 20 MG Cap.CR PO SCH (07:17)
[2021-04-12] MEDS: Tamsulosin 0.4 MG Cap.ER PO SCH (07:17)
[2021-04-12] MEDS: Oxybutynin 5 MG Tab PO SCH ×3 (07:17→17:36)
[2021-04-12] MEDS: Cholecalciferol (Vitamin D3) 25 MCG Tab PO SCH (07:18)
[2021-04-12] MEDS: Vitamin B Complex Tab PO SCH (07:18)
[2021-04-12] MEDS: Metoprolol Tartrate 50 MG Tab PO SCH ×2 (07:18→17:36)
[2021-04-12] MEDS: Sulfamethoxazole/Trimethoprim 800-160 MG Tab PO SCH ×2 (07:30→17:37)
[2021-04-12] MEDS: Melatonin 3 MG Tab PO PRN (19:30)
[2021-04-12] MEDS: traZODone 50 MG Tab PO SCH (19:31)
[2021-04-12] MEDS: atorvaSTATin 10 MG Tab PO SCH (19:31)
[2021-04-13] MEDS: ACYCLOVIR 400 MG PO SCH ×2 (07:38→17:37)
[2021-04-13] MEDS: Tamsulosin 0.4 MG Cap.ER PO SCH (07:38)
[2021-04-13] MEDS: Metoprolol Tartrate 50 MG Tab PO SCH ×2 (07:38→17:37)
[2021-04-13] MEDS: Omeprazole 20 MG Cap.CR PO SCH (07:38)
[2021-04-13] MEDS: Finasteride 5 MG Tab PO SCH (07:38)
[2021-04-13] MEDS: Carbidopa/Levodopa 25-100 MG Tab PO SCH ×2 (07:38→17:37)
[2021-04-13] MEDS: Vitamin B Complex Tab PO SCH (07:39)
[2021-04-13] MEDS: Oxybutynin 5 MG Tab PO SCH ×3 (07:39→17:36)
[2021-04-13] MEDS: Sulfamethoxazole/Trimethoprim 800-160 MG Tab PO SCH ×2 (07:39→17:36)
[2021-04-13] MEDS: Acetaminophen 500 MG Tab PO SCH ×3 (07:39→20:25)
[2021-04-13] MEDS: Cholecalciferol (Vitamin D3) 25 MCG Tab PO SCH (07:40)
[2021-04-13] MEDS: HYDROmorphone 2 MG Tab PO PRN ×2 (09:31→20:30)
[2021-04-13] MEDS: atorvaSTATin 10 MG Tab PO SCH (20:25)
[2021-04-13] MEDS: traZODone 50 MG Tab PO SCH (20:25)
[2021-04-13] MEDS: CYCLOBENZAPRINE 5 MG PO PRN (23:27)
[2021-04-13] MEDS: Melatonin 3 MG Tab PO PRN (23:27)
[2021-04-14] MEDS: HYDROmorphone 2 MG Tab PO PRN (00:30)
[2021-04-14] MEDS: Carbidopa/Levodopa 25-100 MG Tab PO SCH (07:57)
[2021-04-14] MEDS: ACYCLOVIR 400 MG PO SCH (07:58)
[2021-04-14] MEDS: Omeprazole 20 MG Cap.CR PO SCH (07:58)
[2021-04-14] MEDS: Tamsulosin 0.4 MG Cap.ER PO SCH (07:58)
[2021-04-14] MEDS: Finasteride 5 MG Tab PO SCH (07:58)
[2021-04-14] MEDS: Oxybutynin 5 MG Tab PO SCH ×2 (07:59→11:56)
[2021-04-14] MEDS: Metoprolol Tartrate 50 MG Tab PO SCH (07:59)
[2021-04-14 08:00] VITALS: BP 164/82; PULSE 65
[2021-04-14] MEDS: Sulfamethoxazole/Trimethoprim 800-160 MG Tab PO SCH (08:00)
[2021-04-14] MEDS: Acetaminophen 500 MG Tab PO SCH ×2 (08:06→14:03)
[2021-04-14] MEDS: Vitamin B Complex Tab PO SCH (08:06)
[2021-04-14] MEDS: Cholecalciferol (Vitamin D3) 25 MCG Tab PO SCH (08:06)
--- NOTE | 2021-04-14 13:53 | PCM.DCSUM1 ---
Discharge Summary - Discharge Data Discharge Date: 04/14/21 Discharge Disposition: DC/Tfer to SNF 03 Condition: Good - Referral to Home Health Primary Care Physician: AILYN Lal - Discharge Diagnosis/Problem(s) (1) Anemia SNOMED Code(s): 302800258 ICD Code: D64.9 - ANEMIA, UNSPECIFIED Status: Acute Priority: Medium Current Visit: Yes Problem Details: Patient has history of anemia. Transfused this past week by [facility]. Recheck CBC Tuesday, two days from now. Suspect combination of chronic disease/kidney disease/recent surgery. Qualifiers: Anemia type: other cause (2) Confusion SNOMED Code(s): 038775323 ICD Code: R41.0 - DISORIENTATION, UNSPECIFIED Status: Acute Priority: Medium Current Visit: Yes Problem Details: Waxing/waning confusion mostly noted by nursing staff. Needs formal cognitive evaluation. (3) Drug induced constipation SNOMED Code(s): 91226281 ICD Code: K59.03 - DRUG INDUCED CONSTIPATION Status: Acute Priority: Low Current Visit: Yes Problem Details: Continue Metamucil (4) Periprosthetic fracture around internal prosthetic knee joint SNOMED Code(s): 724588409 ICD Code: M97.8XXA - PERIPROSTH FRACTURE AROUND OTHER INTERNAL PROSTH JOINT, INIT; Z96.659 - PRESENCE OF UNSPECIFIED ARTIFICIAL KNEE JOINT Status: Acute Priority: High Current Visit: Yes Problem Details: January. Surgical repair performed at [facility]. Here for PT/OT (5) UTI (urinary tract infection) SNOMED Code(s): 14542470 ICD Code: N39.0 - URINARY TRACT INFECTION, SITE NOT SPECIFIED Status: Acute Priority: Medium Current Visit: Yes Problem Details: Started on Cipro by [facility] for UTI Qualifiers: Urinary tract infection type: site unspecified Hematuria presence: with hematuria Qualified Code(s): N39.0 - Urinary tract infection, site not specified; R31.9 - Hematuria, unspecified (6) BPH (benign prostatic hyperplasia) SNOMED Code(s): 961694127 ICD Code: N40.0 - BENIGN PROSTATIC HYPERPLASIA WITHOUT LOWER URINRY TRACT SYMP Status: Chronic Priority: Low Current Visit: Yes Problem Details: As noted above 1750ml retained urine noted when patient had Turpin placed. Is on Flomax. Follow up appointment scheduled with [facility] later this month Qualifiers: Lower urinary tract symptom presence: symptoms present Lower urinary tract symptom detail: incomplete bladder emptying Qualified Code(s): N40.1 - Benign prostatic hyperplasia with lower urinary tract symptoms; R39.14 - Feeling of incomplete bladder emptying (7) Chronic diastolic (congestive) heart failure SNOMED Code(s): 602742149, 097023898 ICD Code: I50.32 - CHRONIC DIASTOLIC (CONGESTIVE) HEART FAILURE Status: Chronic Priority: Low Current Visit: Yes Problem Details: Stable per history, continue home medication. (8) Diabetes mellitus type 2 in obese SNOMED Code(s): 41973011 ICD Code: E11.69 - TYPE 2 DIABETES MELLITUS WITH OTHER SPECIFIED COMPLICATION; E66.9 - OBESITY, UNSPECIFIED Status: Chronic Priority: Low Current Visit: Yes Problem Details: A1c 7.7 Blood sugars have been stable. Continue daily BID accuchecks (9) GERD (gastroesophageal reflux disease) SNOMED Code(s): 094281116 ICD Code: K21.9 - GASTRO-ESOPHAGEAL REFLUX DISEASE WITHOUT ESOPHAGITIS Status: Chronic Priority: Low Current Visit: Yes Problem Details: Stable per history. Continue home medication Qualifiers: Esophagitis presence: esophagitis presence not specified Qualified Code(s): K21.9 - Gastro-esophageal reflux disease without esophagitis (10) Hyperlipidemia SNOMED Code(s): 86461898 ICD Code: E78.5 - HYPERLIPIDEMIA, UNSPECIFIED Status: Chronic Priority: Low Current Visit: Yes Problem Details: continue home medication Qualifiers: Hyperlipidemia type: unspecified Qualified Code(s): E78.5 - Hyperlipidemia, unspecified (11) Hypertension SNOMED Code(s): 67070875 ICD Code: I10 - ESSENTIAL (PRIMARY) HYPERTENSION Status: Chronic Priority: Low Current Visit: Yes Problem Details: Overall stable during stay. Qualifiers: Hypertension type: primary hypertension Qualified Code(s): I10 - Essential (primary) hypertension (12) Multiple myeloma SNOMED Code(s): 798649568 ICD Code: C90.00 - MULTIPLE MYELOMA NOT HAVING ACHIEVED REMISSION Status: Chronic Priority: Low Current Visit: Yes Problem Details: Recently diagnosed. Being followed by [facility] for this. Qualifiers: Multiple myeloma remission status: unspecified Qualified Code(s): C90.00 - Multiple myeloma not having achieved remission (13) Parkinsons disease SNOMED Code(s): 30905803 ICD Code: G20 - PARKINSON'S DISEASE Status: Chronic Priority: Low Current Visit: Yes Problem Details: Continue home medications (14) Turpin catheter problem SNOMED Code(s): 610850649 ICD Code: T83.9XXA - UNSP COMPLICATION OF GENITOURINARY PROSTH DEV/GRFT, INIT Status: Acute Current Visit: No (15) History of total left knee replacement (TKR) SNOMED Code(s): 9485037804237, 353572332, 2700610904921, 33111819147861 ICD Code: Z96.652 - PRESENCE OF LEFT ARTIFICIAL KNEE JOINT Status: Acute Current Visit: No (16) Insomnia SNOMED Code(s): 516560265 ICD Code: G47.00 - INSOMNIA, UNSPECIFIED Status: Acute Current Visit: No (17) CKD (chronic kidney disease), stage IV SNOMED Code(s): 480850408 ICD Code: N18.4 - CHRONIC KIDNEY DISEASE, STAGE 4 (SEVERE) Status: Chronic Priority: Medium Current Visit: No Problem Details: Creatinine elevated but stable (18) Chronic heart failure with preserved ejection fraction (HFpEF) SNOMED Code(s): 590253736, 437062235 ICD Code: I50.32 - CHRONIC DIASTOLIC (CONGESTIVE) HEART FAILURE Status: Chronic Priority: Low Current Visit: No Problem Details: No complaints of acute SOB/edema (19) Obesity (BMI 30-39.9) SNOMED Code(s): 082150727, 604367372 ICD Code: E66.9 - OBESITY, UNSPECIFIED Status: Chronic Priority: Low Current Visit: No Problem Details: Diet/lifestyle modifications reviewed with patient. May benefit from referral to security and compliance analyst when discharged from swing bed. - Patient Summary/Data Consults: Consultations 02/26/21 18:06 Consult to Case Management/Correctional Counselor/Case Manager [CONS] Routine OT Evaluation and Treatment [CONS] Routine PT Evaluation and Treatment [CONS] Routine 02/27/21 10:33 Consult to Speech Language Pathology [DOUGH MIXER OPERATOR Evaluation and Treatment] [CONS] Routine 03/31/21 08:00 Consult to Hospice [CONS] Routine Hospital Course: This patient has pretty much been in the hospital since 02-12-21 following a fall at home as he was walking through the doorway. He has had a knee replacement in the past the left leg. He was subsequently found to have a periprosthetic fracture of the left femur. This was repaired in [place] and he wa s nonweightbearing until 04/10/2021. He has been in the swing bed in and out in [place] since that time. Since he has been here his kidney stage has somewhat worsened. He has also had some blood transfusion as he has recurrent urinary tract infection. He has been followed with urology and it appears that his Turpin is appropriate at this time and is not having any hematuria. His hemoglobin is stable on discharge at 8.7 which is about his baseline. He has had recurrent urinary tract infections that have been susceptible but continue to return. He has been being followed by urology for this. He does have a history of multiple myeloma for which she has been recently discharged from the cancer center at [facility] in [place] as there is no further options for his therapy at this time. He has a history of anemia Parkinson's anxiety BPH CKD stage IV diabetes mellitus hyperlipidemia hypertension multiple myeloma obesity GERD chronic diastolic heart failure. Since he has been in the hospital he has become somewhat confused at times. This does not not appear to be medication induced and could be somewhat due to hospital psychosis. He is weightbearing on his extremity at this time he is independent in the room. Although he is unkept able to care for himself at home. He is somewhat estranged from his family. His daughter has been in contact. There is quite a bit of concern and the patient is well as staff that he is unable to care for himself at home especially with the Turpin catheter. As well as his confusion since he has been in the hospital. He is somewhat plateaued with therapies here and we do not feel that he is a candidate for discharge home at this time. We will transfer him to the group home for further care and management.Last laboratory evaluation on 03/23/2021 shows a creatinine at baseline of 3.21, BUN 38, sodium 138, potassium 4.6, glucose 152, calcium 8.4. Urinalysis shows 50-70 5U WBCs with large amount of leukocyte Estrace. Is currently on Bactrim which is sensitive for a Staphylococcus Sciuri. Per oncology the patient's expectancy with his multiple myeloma is possibly 6 months. Patient is a DNR/DNI after discussion with his daughter today as well as his previous wishes of no aggressive management. The patient does clearly have those of lucency although he has episodes of confusion. He has been deemed not capable to make decisions on his own not only by our staff as well as his family. He is somewhat estranged from his family and does not have any family support and unable to return home. - Discharge Plan *PRESCRIPTION DRUG MONITORING PROGRAM REVIEWED*: Not Applicable *COPY OF PRESCRIPTION DRUG MONITORING REPORT IN PATIENT [place]: Not Applicable Home Medications: Home Meds Vitamin B Complex [B Complex] 1 each PO DAILY 08/10/13 [History] Cholecalciferol (Vitamin D3) [Vitamin D3] 1,000 unit PO DAILY 01/22/16 [History] Acyclovir 1 tab PO BID 02/12/21 [History] Montelukast [Singulair] 10 mg PO ASDIRECTED 02/12/21 [History] Omeprazole 1 cap PO DAILY 02/12/21 [History] atorvaSTATin [Lipitor] 10 mg pe PO BEDTIME 02/12/21 [History] traZODone 0.5 tab PO BEDTIME 02/12/21 [History] Acetaminophen 1,000 mg PO TID 02/19/21 [History] Calcium Carbonate 1,000 mg PO Q4H PRN 02/19/21 [History] Melatonin 3 mg PO BEDTIME PRN 02/19/21 [History] Metoprolol Tartrate [Lopressor] 50 mg PO BID 02/19/21 [History] Naloxone [Narcan] 0.4 mg IJ ASDIRECTED PRN 02/19/21 [History] Sennosides/Docusate Sodium [Senna-Docusate Sodium Tablet] 2 each PO BID 02/19/21 [History] Tamsulosin HCl [Flomax] 0.4 mg PO DAILY 02/19/21 [History] polyethylene glycoL 3350 [Miralax] 1 pkt PO DAILY PRN 02/19/21 [History] Apixaban [Eliquis] 2.5 mg PO BID 02/26/21 [History] Aspirin 325 mg PO DAILY 02/26/21 [History] Ciprofloxacin [Ciprofloxacin HCl] 1 tab PO DAILY@1700 02/26/21 [History] Finasteride [Proscar] 1 tab PO DAILY 02/26/21 [History] Furosemide [Lasix] 3 tab PO DAILY 02/26/21 [History] Naloxone [Narcan] 0.2 mg IJ ASDIRECTED PRN 02/26/21 [History] oxyCODONE 1 tab PO Q6HR PRN 02/26/21 [History] Carbidopa/Levodopa [Carbidopa-Levodopa 25-100] 1 tab PO BID 02/27/21 [History] - Discharge Summary/Plan Comment DC Time >30 min.: Yes Total # of Minutes for Discharge Time: 45 - General Info Date of Service: 04/14/21 Subjective Update: Pt offers no complaints today. Is not excited about going to the group home although he is aware that if he is able to continue to improve and show that he is safe to be at home that is possibly something for the future although at this time is not an option. Functional Status: Reports: Pain Controlled - Review of Systems General: Reports: No Symptoms HEENT: Reports: No Symptoms Pulmonary: Reports: No Symptoms - Patient Data Vitals - Most Recent: Last Vital Signs Temp 97.2 F 04/14/21 08:00 Pulse 65 04/14/21 08:00 Resp 16 04/14/21 08:00 BP 164/82 H 04/14/21 08:00 Pulse Ox 99 04/14/21 08:00 Weight - Most Recent: 264 lb 9.6 oz I&O - Last 24 hours: Intake & Output 04/13/21 04/14/21 04/14/21 22:59 06:59 14:59 Intake Total 360 450 600 Output Total 475 850 Balance -115 -400 600 Med Orders - Current: Current Medications Acetaminophen (Acetaminophen 500 Mg Tab) 1,000 mg PO TID@0800,1400,2000 [facility] Last Admin: 04/14/21 08:06 Dose: 1,000 mg Documented by: Acetaminophen (Acetaminophen 325 Mg Tab) 325 mg PO TID PRN PRN Reason: Pain Last Admin: 04/01/21 02:18 Dose: 325 mg Documented by: Atorvastatin Calcium (Atorvastatin 10 Mg Tab) 10 mg PO BEDTIME [facility] Last Admin: 04/13/21 20:25 Dose: 10 mg Documented by: Calcium Carbonate/Glycine (Calcium Carbonate 500 Mg Tab.Chew) 1,000 mg PO Q4H PRN PRN Reason: Heartburn Carbidopa/Levodopa (Carbidopa/Levodopa 25-100 Mg Tab) 1 tab PO BID [facility] Last Admin: 04/14/21 07:57 Dose: 1 tab Documented by: Cholecalciferol (Cholecalciferol (Vitamin D3) 25 Mcg Tab) 25 mcg PO DAILY [facility] Last Admin: 04/14/21 08:06 Dose: 25 mcg Documented by: Finasteride (Finasteride 5 Mg Tab) 5 mg PO DAILY [facility] Last Admin: 04/14/21 07:58 Dose: 5 mg Documented by: Hydrocortisone (Hydrocortisone 1% Crm 30 Gm Tube) 1 gm TOP BID PRN PRN Reason: Itching Skin Last Admin: 04/08/21 07:48 Dose: 1 applic Documented by: Hydromorphone HCl (Hydromorphone 2 Mg Tab) 2 mg PO Q4H PRN PRN Reason: Pain Last Admin: 04/14/21 00:30 Dose: 2 mg Documented by: Melatonin (Melatonin 3 Mg Tab) 3 mg PO BEDTIME PRN PRN Reason: Insomnia Last Admin: 04/13/21 23:27 Dose: 3 mg Documented by: Metoprolol Tartrate (Metoprolol Tartrate 50 Mg Tab) 50 mg PO BID [facility] Last Admin: 04/14/21 07:59 Dose: 50 mg Documented by: Neomycin/Polymyxin/Bacitracin (Bacitracin/Neomycin/Polymyxin B Oint 0.9 Gm U/D Packet) 1 each TOP BID PRN PRN Reason: Wound Care Cyclobenzaprine 5mg (Tablets) 1 each PO TID PRN PRN Reason: Muscle Spasm - Painful Last Admin: 04/13/21 23:27 Dose: 1 each Documented by: Acyclovir 400mg (Tablets) 1 each PO BID [facility] Last Admin: 04/14/21 07:58 Dose: 1 each Documented by: Omeprazole (Omeprazole 20 Mg Cap.Cr) 20 mg PO ACBREAKFAST [facility] Last Admin: 04/14/21 07:58 Dose: 20 mg Documented by: Oxybutynin Chloride (Oxybutynin 5 Mg Tab) 2.5 mg PO TID [facility] Last Admin: 04/14/21 11:56 Dose: 2.5 mg Documented by: Polyethylene Glycol (Polyethylene Glycol 3350 Powder 17 Gm Packet) 17 gm PO DAILY PRN PRN Reason: Constipation Senna/Docusate Sodium (Docusate Sodium/Sennosides 50-8.6 Mg Tab) 2 tab PO BID [facility] Last Admin: 04/14/21 08:07 Dose: Not Given Documented by: Tamsulosin HCl (Tamsulosin 0.4 Mg Cap.Er) 0.4 mg PO DAILY [facility] Last Admin: 04/14/21 07:58 Dose: 0.4 mg Documented by: Trazodone HCl (Trazodone 50 Mg Tab) 25 mg PO BEDTIME [facility] Last Admin: 04/13/21 20:25 Dose: 25 mg Documented by: Trimethoprim/Sulfamethoxazole (Sulfamethoxazole/Trimethoprim 800-160 Mg Tab) 1 tab PO BID [facility] Stop: 04/18/21 22:01 Last Admin: 04/14/21 08:00 Dose: 1 tab Documented by: Vitamin B Complex (Vitamin B Complex Tab) 1 each PO DAILY [facility] Last Admin: 04/14/21 08:06 Dose: 1 each Documented by: Discontinued Medications Acetaminophen (Acetaminophen 500 Mg Tab) 1,000 mg PO TID [facility] Last Admin: 02/27/21 07:36 Dose: 1,000 mg Documented by: Acyclovir (Acyclovir 200 Mg Cap) 400 mg PO BID [facility] Last Admin: 04/03/21 08:11 Dose: 400 mg Documented by: Apixaban (Apixaban 2.5 Mg Tab) 2.5 mg PO BID [facility] Stop: 03/14/21 18:01 Last Admin: 03/14/21 17:42 Dose: 2.5 mg Documented by: Aspirin (Aspirin 325 Mg Tab.Ec) 325 mg PO DAILY [facility] Aspirin (Aspirin 81 Mg Tab.Chew) 81 mg PO BEDTIME [facility] Last Admin: 03/19/21 20:15 Dose: 81 mg Documented by: Bumetanide (Bumetanide 1 Mg Tab) 2 mg PO ONETIME ONE Stop: 03/25/21 20:50 Last Admin: 03/25/21 20:58 Dose: 2 mg Documented by: Cefuroxime Axetil (Cefuroxime 250 Mg Tab) 250 mg PO BID [facility] Stop: 03/06/21 12:00 Last Admin: 03/06/21 08:03 Dose: 250 mg Documented by: Ciprofloxacin (Ciprofloxacin 500 Mg Tab) 250 mg PO DAILY@1700 [facility] Stop: 03/02/21 17:01 Cyclobenzaprine HCl (Cyclobenzaprine 10 Mg Tab) 5 mg PO TID PRN PRN Reason: Muscle Spasm - Painful Last Admin: 03/30/21 20:56 Dose: 5 mg Documented by: Furosemide (Furosemide 20 Mg Tab) 60 mg PO DAILY [facility] Last Admin: 03/21/21 07:53 Dose: 60 mg Documented by: Furosemide (Furosemide 40 Mg Tab) 60 mg PO ONETIME ONE Stop: 03/25/21 20:34 Last Admin: 03/25/21 21:00 Dose: Not Given Documented by: Montelukast Sodium (Montelukast 10 Mg Tab) 10 mg PO ASDIRECTED TOSIN Naloxone HCl (Naloxone 0.4 Mg/Ml Sdv) 0.2 mg IM ASDIRECTED PRN PRN Reason: Other Naloxone HCl (Naloxone 0.4 Mg/Ml Sdv) 0.4 mg IM ASDIRECTED PRN PRN Reason: Other Neomycin/Polymyxin/Bacitracin (Bacitracin/Neomycin/Polymyxin B Oint 0.9 Gm U/D Packet) 1 each TOP BID [facility] Last Admin: 04/05/21 07:52 Dose: Not Given Documented by: Oxycodone HCl (Oxycodone 5 Mg Tab) 5 mg PO Q6HR PRN PRN Reason: Moderate Pain Last Admin: 03/03/21 08:27 Dose: 5 mg Documented by: Senna/Docusate Sodium (Docusate Sodium/Sennosides 50-8.6 Mg Tab) Confirm Administered Dose 1 tab .ROUTE .STK-MED ONE Stop: 03/14/21 17:48 Last Admin: 03/14/21 18:19 Dose: Not Given Documented by: Trimethoprim/Sulfamethoxazole (Sulfamethoxazole/Trimethoprim 800-160 Mg Tab) 2 tab PO Q8HR [facility] Trimethoprim/Sulfamethoxazole (Sulfamethoxazole/Trimethoprim 800-160 Mg Tab) 2 tab PO Q12HR [facility] Trimethoprim/Sulfamethoxazole (Sulfamethoxazole/Trimethoprim 800-160 Mg Tab) 1 tab PO Q12HR [facility] Stop: 03/21/21 10:00 Last Admin: 03/21/21 07:52 Dose: 1 tab Documented by: - Exam General: Reports: Alert, Oriented HEENT: Reports: Pupils Equal Neck: Reports: Supple Lungs: Reports: Clear to Auscultation, Normal Respiratory Effort Cardiovascular: Reports: Regular Rate GI/Abdominal Exam: Normal Bowel Sounds, Soft, Non-Tender (Male) Exam: Deferred Rectal (Males) Exam: Deferred Back Exam: Reports: Normal Inspection Extremities: Pedal Edema (2+ bilaterally. ), Other (Areas of excoriation non-infectious to lower extremities from puritis. ) Skin: Reports: Warm, Dry, Intact Wound/Incisions: Reports: Healing Well (Incision of the left lower Extremity is well healed and non-infectious. ) Neurological: Reports: Normal Gait, Cranial Nerves Intact Psy/Mental Status: Reports: Alert, Normal Affect, Normal Mood
[2021-04-14] MEDS ORDERED: Carbidopa/Levodopa 25-100 MG Tab PO SCH (18:00)
== END 2021-04-14 13:15 | DRG 560 ==
LOC: LL.MS 09:00 → UNDOADMIN 09:00 → LL.MS 02-26 16:43
PROVIDERS: ADMIT Emergency Medicine; ATTEND Emergency Medicine
PROC: 0T2BX0Z Change Drainage Device in Bladder, External Approach (ICD-10-PCS; principal; 2021-04-02)
DX: S72.402D Unspecified fracture of lower end of left femur, subsequent encounter for closed fracture with routine healing (principal); N39.0 Urinary tract infection, site not specified; I50.32 Chronic diastolic (congestive) heart failure; C90.00 Multiple myeloma not having achieved remission; T83.9XXA Unspecified complication of genitourinary prosthetic device, implant and graft, initial encounter; N18.4 Chronic kidney disease, stage 4 (severe); I13.0 Hypertensive heart and chronic kidney disease with heart failure and stage 1 through stage 4 chronic kidney disease, or unspecified chronic kidney disease; M97.8XXD Periprosthetic fracture around other internal prosthetic joint, subsequent encounter; R31.9 Hematuria, unspecified; N40.1 Benign prostatic hyperplasia with lower urinary tract symptoms; R39.14 Feeling of incomplete bladder emptying; E66.9 Obesity, unspecified; K21.9 Gastro-esophageal reflux disease without esophagitis; E11.22 Type 2 diabetes mellitus with diabetic chronic kidney disease; K59.03 Drug induced constipation; E78.5 Hyperlipidemia, unspecified; G20 Parkinson's disease; R33.8 Other retention of urine; Z96.652 Presence of left artificial knee joint; G47.00 Insomnia, unspecified; R41.0 Disorientation, unspecified; Z66 Do not resuscitate; H91.90 Unspecified hearing loss, unspecified ear; E78.00 Pure hypercholesterolemia, unspecified; J44.9 Chronic obstructive pulmonary disease, unspecified; M19.90 Unspecified osteoarthritis, unspecified site; F41.9 Anxiety disorder, unspecified; F32.A Depression, unspecified; M85.80 Other specified disorders of bone density and structure, unspecified site; D63.1 Anemia in chronic kidney disease; Z90.49 Acquired absence of other specified parts of digestive tract; Z79.82 Long term (current) use of aspirin; Z79.899 Other long term (current) drug therapy; Z98.890 Other specified postprocedural states; Z87.891 Personal history of nicotine dependence; B96.89 Other specified bacterial agents as the cause of diseases classified elsewhere
CPT/HCPCS: 36415; 51702; 80048; 80053; 81001; 82947; 85025; 86140; 87040; 87086; 87088; 87186; 92507-GN; 92523-GN; 92610-GN; 97110-GO; 97110-GP; 97116-GP; 97162-GP; 97164-GP; 97165-GO; 97530-GO; 97530-GP; 97535-GO; A9270-GY

== ENCOUNTER 2021-03-20 11:00 | Emergency (ER) | payer MEDICARE, OTHER ==
--- NOTE | 2021-03-20 11:50 | EDM.PDOC ---
ED HPI GENERAL MEDICAL PROBLEM - General Chief Complaint: Genitourinary Problem Stated Complaint: urinary retention Time Seen by Provider: 03/20/21 11:30 Source of Information: Reports: Patient, Old Records, RN Notes Reviewed History Limitations: Reports: Other (mild cognitive impairment) - History of Present Illness INITIAL COMMENTS - FREE TEXT/NARRATIVE: Patient was sent to the ED from [facility] in the hospital for no arce catheter output. Patient is a poor historian that had a left periprosthetic femur fracture in January. He had surgery for this and was eventually sent to this facility for rehabilitation as it was deemed he could not return home. He ended up in urinary retention after the catheter from the acute stay was removed. Traumatic insertion of arce catheter during this caused significant bleeding due to his eliquis and was sent back to [facility] for blood transfusion. He has a low hemoglobin in the 8-10 range due to CKD, and nultiple myeloma treatment. He has antibodies and was tranfused, seen by nephrology and urology and started on Cipro for enterobacter infection. He was having increasing problems in the last week with blood clots in the the catheter and this causing blockages so catheter was flushed multiple times. Initially this cleared things and relieved his abdominal pressure and bladder spasms. He was diagnosed with a citrobacter i nfection and has been on bactrim for this for several days. He is on a diuretic, not eating or drinking much and today had only about 100 cc of urine in his bag. Flushing the catheter results in no problems with the flush, but no ability to with draw urine. Normal creatinine is 2.7. today his creatinine on routine draw was 3.78. Hospitalist felt the need for emergent evaluation and he was sent to the ED. He states he just had a large bowel movement and is feeling fine. No abdominal distention, no bladder spasms today. No appetite but no nausea or vomiting. Continues to have problems with the left femur due to recent fracture. Onset: Today Duration: Getting Worse Associated Symptoms: Reports: No Other Symptoms - Related Data Allergies Allergy/AdvReac Type Severity Reaction Status Date / Time No Known Allergies Allergy Verified 03/20/21 11:06 Home Meds: Home Meds Vitamin B Complex [B Complex] 1 each PO DAILY 08/10/13 [History] Cholecalciferol (Vitamin D3) [Vitamin D3] 1,000 unit PO DAILY 01/22/16 [History] Acyclovir 1 tab PO BID 02/12/21 [History] Montelukast [Singulair] 10 mg PO ASDIRECTED 02/12/21 [History] Omeprazole 1 cap PO DAILY 02/12/21 [History] atorvaSTATin [Lipitor] 10 mg pe PO BEDTIME 02/12/21 [History] traZODone 0.5 tab PO BEDTIME 02/12/21 [History] Acetaminophen 1,000 mg PO TID 02/19/21 [History] Calcium Carbonate 1,000 mg PO Q4H PRN 02/19/21 [History] Melatonin 3 mg PO BEDTIME PRN 02/19/21 [History] Metoprolol Tartrate [Lopressor] 50 mg PO BID 02/19/21 [History] Naloxone [Narcan] 0.4 mg IJ ASDIRECTED PRN 02/19/21 [History] Sennosides/Docusate Sodium [Senna-Docusate Sodium Tablet] 2 each PO BID 02/19/21 [History] Tamsulosin HCl [Flomax] 0.4 mg PO DAILY 02/19/21 [History] polyethylene glycoL 3350 [Miralax] 1 pkt PO DAILY PRN 02/19/21 [History] Apixaban [Eliquis] 2.5 mg PO BID 02/26/21 [History] Aspirin 325 mg PO DAILY 02/26/21 [History] Ciprofloxacin [Ciprofloxacin HCl] 1 tab PO DAILY@1700 02/26/21 [History] Finasteride [Proscar] 1 tab PO DAILY 02/26/21 [History] Furosemide [Lasix] 3 tab PO DAILY 02/26/21 [History] Naloxone [Narcan] 0.2 mg IJ ASDIRECTED PRN 02/26/21 [History] oxyCODONE 1 tab PO Q6HR PRN 02/26/21 [History] Carbidopa/Levodopa [Carbidopa-Levodopa 25-100] 1 tab PO BID 02/27/21 [History] Past Medical History HEENT History: Reports: Hard of Hearing Cardiovascular History: Reports: High Cholesterol, Hypertension Other Cardiovascular History: Carotid Artery stenosis, acute coronary occlusion without myocardial infarction, coronary atherosclerosis of pala artery, SVT premature beats, Respiratory History: Reports: COPD Gastrointestinal History: Reports: Diverticulosis, Pancreatitis, Other (See Below) Other Gastrointestinal History: Pepcid Ulcer, umbilical hernia, esophageal reflux Genitourinary History: Reports: BPH, Chronic Renal Insuffiency Other Genitourinary History: impotence, atrophy of testis, stage 3 CKD Musculoskeletal History: Reports: Arthritis Neurological History: Reports: Parkinson's, Other (See Below) Psychiatric History: Reports: Anxiety, Depression Endocrine/Metabolic History: Reports: Diabetes, Type II, Obesity/BMI 30+, Osteopenia Hematologic History: Reports: Anemia Oncologic (Cancer) History: Reports: Other (See Below) Other Oncologic History: Multiple myeloma - Past Surgical History Cardiovascular Surgical History: Reports: Carotid Endarterectomy GI Surgical History: Reports: Cholecystectomy Musculoskeletal Surgical History: Reports: Amputation, Arthroscopic Knee, Knee Replacement, Other (See Below) Other Musculoskeletal Surgeries/Procedures:: Lumbar spine surgery x 3, left knee replacement Social & Family History - Family History Family Medical History: Unobtainable Cardiac: Reports: IN Respiratory: Reports: COPD GI: Reports: Cholelithiasis, PUD, Other (See Below) Other GI Family History: GI Disease : Reports: Cystic Kidney Disease, Nephritis Musculoskeletal: Reports: Gout Neurological: Reports: Other (See Below) Other Neurological Family History: Organic brain syndrome Psychiatric: Reports: Depression, Suicide Attempt Endocrine/Metabolic: Reports: Diabetes, type II Oncologic: Reports: Breast, Lung - Caffeine Use Caffeine Use: Reports: Coffee - Living Situation & Occupation Living situation: Reports: , Alone Occupation: Retired ED ROS GENERAL - Review of Systems Review Of Systems: See Below Reason Not Obtained: difficult to obtain due to cognitive impairment Constitutional: Reports: Weakness. Denies: Fever, Chills HEENT: Denies: Ear Discharge, Eye Discharge, Vision Change Respiratory: Denies: Shortness of Breath, Cough Cardiovascular: Denies: Chest Pain GI/Abdominal: Reports: Decreased Appetite. Denies: Abdominal Pain, Constipation, Diarrhea : Reports: Frequency (related to catheter), Urinary Retention Musculoskeletal: Reports: Other (left leg pain due to recent fracture, unchan ged) Neurological: Reports: Pre-Existing Deficit Psychiatric: Reports: No Symptoms ED EXAM, RENAL/ - Physical Exam Exam: See Below Exam Limited By: Other (mild cognitive impairment) General Appearance: Alert, WD/WN, No Apparent Distress Eye Exam: Bilateral Eye: EOMI, PERRL Nose: Normal Inspection Throat/Mouth: Normal Teeth, Normal Voice, No Airway Compromise Head: Atraumatic Neck: Full Range of Motion Respiratory/Chest: No Respiratory Distress, Lungs Clear, Normal Breath Sounds Cardiovascular: Regular Rate, Rhythm, No Edema GI/Abdominal: Normal Bowel Sounds, Soft, Non-Tender, Distended (bladder, palpated) (Male) Exam: Other (arce catheter indwelling with leg bag). No: Urethral Discharge Extremities: Other (toe touch weight bearing on the left) Neurological: Alert Course - Orders/Labs/Meds Orders: Active Orders 24 hr Category Date Time Status Abdomen Pelvis wo Cont [CT] Stat Exams 03/20/21 11:22 Ordered - Radiology Interpretation Free Text/Narrative:: Ct scan without contrast, discussed with radiologist. large bladder with arce catheter in the prostate. No other acute findings. - Re-Assessments/Exams Free Text/Narrative Re-Assessment/Exam: 03/20/21 11:45 patient most likely has lower tract obstruction or mispositioning of the catheter. He is not a reliable historian for tugging at this. labs today with normal wbc of 8.1. Hemoglobin stable oat 8.7. creatinine elevated at 3.78 but is on lasix 60 mg daily and his input 840 180 500 output 500 500 0 ( but no catheter output yet Will get a CT non contrast to rule out other pathology. 12:00 Ct with large bladder, no hydronephrosis and catheter has been displaced to the prostate with the balloon in the prostate. Instructed nursing to deflate the balloon, advance catheter and did start to get greater than 1000 return. balloon reinflated,. This needs to be followed closely to ensure he is not pulling at it. It problems continue, he may need a catheter with a 30 cc balloon. Continue antibiotics. will hold lasix and encourage po hydration but will not IV hydration due to CHF. creatinine should improve with bladder outlet obstruction resolved. 12:15 Patient inadvertently pulled out his arce catheter with the balloon inflated. 03/20/21 12:20 Able to advance catheter. NOTE 15 cc placed in balloon. Able to flush and get good return. Will continue to monitor. [facility]. Departure - Departure Time of Disposition: 12:23 Disposition: DC/Tfer W/I Hosp To [facility] Condition: Good Clinical Impression: Arce catheter problem, Acute urinary retention, CKD (chronic kidney disease), stage IV Acute renal failure Qualifiers: Acute renal failure type: unspecified Qualified Code(s): N17.9 - Acute kidney failure, unspecified - Discharge Information *PRESCRIPTION DRUG MONITORING PROGRAM REVIEWED*: No *COPY OF PRESCRIPTION DRUG MONITORING REPORT IN PATIENT [place]: No Referrals: PCP,Unknown [Ordering Only Provider] - Forms: ED Department Discharge Additional Instructions: hold lasix for two days. await urology consult. may need suprapubic catheter - My Orders Last 24 Hours: My Active Orders 03/20/21 11:22 Abdomen Pelvis wo Cont [CT] Stat - Assessment/Plan Last 24 Hours: My Active Orders 03/20/21 11:22 Abdomen Pelvis wo Cont [CT] Stat
[2021-03-20 12:38] VITALS: BP 146/64; PULSE 81
== END 2021-03-20 12:20 | disposition swing bed (61) ==
LOC: LL.ED 11:00
DX: T83.091A Other mechanical complication of indwelling urethral catheter, initial encounter (principal); R33.9 Retention of urine, unspecified; N17.9 Acute kidney failure, unspecified; I12.9 Hypertensive chronic kidney disease with stage 1 through stage 4 chronic kidney disease, or unspecified chronic kidney disease; E11.22 Type 2 diabetes mellitus with diabetic chronic kidney disease; N18.4 Chronic kidney disease, stage 4 (severe); E78.00 Pure hypercholesterolemia, unspecified; J44.9 Chronic obstructive pulmonary disease, unspecified; N40.0 Benign prostatic hyperplasia without lower urinary tract symptoms; E66.9 Obesity, unspecified; Z68.30 Body mass index [BMI] 30.0-30.9, adult; Z79.899 Other long term (current) drug therapy
CPT/HCPCS: 74176; 99284; 99284-25

== ENCOUNTER 2022-06-20 15:55 | Emergency (ER) | payer MEDICARE, OTHER ==
[2022-06-20] MEDS ORDERED: Morphine 2 MG/ML SYRINGE IVPUSH ONE (16:07)
[2022-06-20] MEDS ORDERED: Sodium Chloride 0.9% 10 ML Syringe FLUSH PRN (16:14)
[2022-06-20] MEDS ORDERED: Lactated Ringers 1,000 ML IV SCH (16:15)
[2022-06-20 16:40] LABS: ANION GAP 13.9 meq/L (7-15); CHLORIDE,CL 103 mmol/L (98-107); SODIUM,NA 138 mmol/L (136-145)
[2022-06-20 16:43] LABS: ESTIMATED GFR 15 mL/min (>=60)
[2022-06-20] MEDS ORDERED: Nystatin Topical Powder 15 GM Bottle TOP SCH (18:00)
[2022-06-20 23:37] VITALS: BP 138/64; PULSE 96
== END 2022-06-20 20:40 ==
LOC: SUPCPDRO 15:55 → LL.ED 15:55
DX: S72.145A Nondisplaced intertrochanteric fracture of left femur, initial encounter for closed fracture (principal); S90.412A Abrasion, left great toe, initial encounter; S90.414A Abrasion, right lesser toe(s), initial encounter; S90.411A Abrasion, right great toe, initial encounter; G93.41 Metabolic encephalopathy; R74.8 Abnormal levels of other serum enzymes; J44.9 Chronic obstructive pulmonary disease, unspecified; K21.9 Gastro-esophageal reflux disease without esophagitis; I12.9 Hypertensive chronic kidney disease with stage 1 through stage 4 chronic kidney disease, or unspecified chronic kidney disease; E11.22 Type 2 diabetes mellitus with diabetic chronic kidney disease; N18.9 Chronic kidney disease, unspecified; M19.90 Unspecified osteoarthritis, unspecified site; E66.9 Obesity, unspecified; Z87.891 Personal history of nicotine dependence; Z79.899 Other long term (current) drug therapy; W18.30XA Fall on same level, unspecified, initial encounter; Y92.009 Unspecified place in unspecified non-institutional (private) residence as the place of occurrence of the external cause
CPT/HCPCS: 36415; 70450; 73700-LT; 80053; 81001; 82550; 83605; 83735; 85025; 87086; 96361; 96374; 99284; 99285-25; A9270-GY; J2270; J7120